=== PATIENT | female | born 1930 | race Caucasian/White ===

== ENCOUNTER → 2017-04-02 | Outpatient (CLI) | payer MEDICARE, OTHER ==
[~2017-04-02] MED LIST: BISO1TAB3 PO; CEFD300C3 PO; EZET10TA5 PO; L-THROXINE; LANS30CA PO; SERT50TA9 PO
--- NOTE | 2017-04-05 19:28 | Diagnostic Imaging Report ---
EXAM: Mammogram, bilateral screening with tomosynthesis. COMPARISON: Prior exams of 12/10/15, 10/19/14 and 10/18/13. At this time, there are no current complaints. 3D tomographic images fail to show any sign of malignancy. The current study was also evaluated with a Computer Aided Detection (CAD) system. FINDINGS: The fibroglandular tissue in both breasts is heterogeneously dense. This does limit the sensitivity of this exam. Overall, there does not appear to have been any significant change when compared to the prior study. No primary or secondary sign of malignancy is noted. IMPRESSION: There is no radiographic evidence for malignancy. ACR BI-RADS Category 1: Negative. Result letter will be mailed to the patient. Note: At least 10% of breast cancer is not imaged by mammography. Dictated by: Dictated on workstation # [id number]
== END ==
LOC: RAD 09:49
PROVIDERS: ATTEND Nurse Practitioner Family
DX: Z12.31 Encounter for screening mammogram for malignant neoplasm of breast (principal)
CPT/HCPCS: 77067

== ENCOUNTER 2017-08-24 08:40 | Outpatient (RCR) | payer MEDICARE, OTHER ==
[2017-08-29] MEDS ORDERED: LEVO100T7 PO (11:58)
[2017-08-29] MEDS ORDERED: VIT1CAPS5 PO (15:37)
[2017-08-29] MEDS ORDERED: CETI10TA17 PO (15:37)
[2017-08-29] MEDS ORDERED: TRAM50TA2 PO (15:37)
[2017-08-29] MEDS ORDERED: CYCL1DRO OU (15:37)
[2017-08-30] MEDS ORDERED: ACHD5005 PO (14:12)
[2017-08-30] MEDS ORDERED: ASPI325T32 PO (14:12)
[2017-08-31] MEDS ORDERED: SENN-140 PO (08:25)
[2017-08-31] MEDS ORDERED: DOCU100C37 PO (08:25)
[2017-08-31] MEDS ORDERED: OXYC-197 PO (08:42)
[2017-08-31] MEDS ORDERED: DICL100G18 TP (08:51)
[2017-09-03] MEDS ORDERED: DICL100G18 TOP (09:35)
[2017-09-03] MEDS ORDERED: ASPI325T32 PO (09:35)
[2017-09-03] MEDS ORDERED: HYDR-3820 PO (09:35)
[2017-09-03] MEDS ORDERED: TRAM50TA2 PO (09:35)
== END 2017-09-02 15:05 | disposition home or self-care (01) ==
PROVIDERS: ATTEND Orthopaedic Surgery
DX: Z47.1 Aftercare following joint replacement surgery (principal); Z96.651 Presence of right artificial knee joint

== ENCOUNTER 2017-08-28 15:43 | Inpatient (IN) | payer MEDICARE, OTHER ==
[~2017-08-28] VITALS: Ht 160 cm; Wt 68.7 kg
[2017-08-28] MEDS ORDERED: fentaNYL INJECTION 100 MCG/2 ML AMP ONE (15:51)
--- NOTE | 2017-08-28 15:56 | ED Lower Extremity ---
General Stated Complaint: FALL R HIP Source: patient Exam Limitations: no limitations History of Present Illness Time seen by provider: 15:54 Initial Comments To ER with reports of a fall while going outside afternoon. Landed on the right hip and has been unable to bear weight on the right leg since the fall. Complains of severe pain to the right hip. Recently had a right knee replacement by Dr. Samayoa. She did take hydrocodone 5/325 one hour prior to arrival to ER Onset: just prior to arrival Severity: moderate Pain/Injury Location: right hip Modifying Factors: Worse With Movement Allergies and Home Medications Allergies Coded Allergies: No Known Drug Allergies (Unverified , 08/28/17) Home Medications Bisoprolol Fumarate/Hctz 1 Each Tablet, 1 EACH PO DAILY, (Reported) Cefdinir 300 Mg Capsule, 300 MG PO BID, #14 Prescribed by: ISAAC PIZARRO on 10/27/15 1219 Ezetimibe 10 Mg Tablet, 10 MG PO, (Reported) Lansoprazole 30 Mg Capsule.dr, 30 MG PO, (Reported) Sertraline HCl 50 Mg Tablet, 75 MG PO, (Reported) [L-Throxine] , 100, (Reported) Constitutional: see HPI EENTM: see HPI Respiratory: no symptoms reported Cardiovascular: no symptoms reported Genitourinary: no symptoms reported Musculoskeletal: see HPI Skin: no symptoms reported Psychiatric/Neurological: No Symptoms Reported Past Qbfabcd-Fwpxln-Nfmovs Hx Patient Social History Recent Foreign Travel: No Contact w/Someone Who Travel: No Surgeries Surgeries: Orthopedic Cardiovascular Cardiac Disorders: High Cholesterol, Hypertension Gastrointestinal Gastrointestinal Disorders: Gastroesophageal Reflux Psychosocial Behavioral Health Disorders: Depression Physical Exam Vital Signs Vital Sign - Last 12Hours 08/28/17 08/28/17 15:50 16:10 Pulse 69 Resp 18 B/P (MAP) 189/96 (127) Pulse Ox 95 O2 Delivery Nasal Cannula O2 Flow Rate 2.00 FiO2 100 Capillary Refill : General Appearance: WD/WN, no apparent distress HEENT: PERRL/EOMI, normal ENT inspection Neck: non-tender, full range of motion Respiratory: no respiratory distress, no accessory muscle use Gastrointestinal: normal bowel sounds, non tender Hips: right hip limited range of motion, right hip pain, right hip other ( right leg is shortened and externally rotated. The dorsalis pedis pulses +2) Legs: bilateral leg non-tender, bilateral leg normal inspection, bilateral leg normal range of motion Knees: right knee other (scar over the anterior midline knee) Ankles: bilateral ankle non-tender, bilateral ankle normal inspection, bilateral ankle normal range of motion Feet: bilateral foot non-tender, bilateral foot normal inspection, bilateral foot normal range of motion Neurologic/Psychiatric: alert, normal mood/affect, oriented x 3 Skin: normal color, warm/dry Progress/Results/Core Measures Results/Orders Lab Results Laboratory Tests Test 08/28/17 15:51 Range/Units White Blood Count 9.2 4.3-11.0 10^3/uL Red Blood Count 4.14 L 4.35-5.85 10^6/uL Hemoglobin 12.4 11.5-16.0 G/DL Hematocrit 36 35-52 % Mean Corpuscular Volume 87 80-99 FL Mean Corpuscular Hemoglobin 30 25-34 PG Mean Corpuscular Hemoglobin Concent 34 32-36 G/DL Red Cell Distribution Width 12.0 10.0-14.5 % Platelet Count 243 130-400 10^3/uL Mean Platelet Volume 10.2 7.4-10.4 FL Neutrophils (%) (Auto) 53 42-75 % Lymphocytes (%) (Auto) 34 12-44 % Monocytes (%) (Auto) 11 0-12 % Eosinophils (%) (Auto) 2 0-10 % Basophils (%) (Auto) 1 0-10 % Neutrophils # (Auto) 4.9 1.8-7.8 X 10^3 Lymphocytes # (Auto) 3.1 1.0-4.0 X 10^3 Monocytes # (Auto) 1.0 0.0-1.0 X 10^3 Eosinophils # (Auto) 0.2 0.0-0.3 10^3/uL Basophils # (Auto) 0.1 0.0-0.1 10^3/uL Prothrombin Time 12.9 12.2-14.7 SEC INR Comment 1.0 0.8-1.4 Sodium Level 137 135-145 MMOL/L Potassium Level 3.4 L 3.6-5.0 MMOL/L Chloride Level 101 98-107 MMOL/L Carbon Dioxide Level 20 L 21-32 MMOL/L Anion Gap 16 H 5-14 MMOL/L Blood Urea Nitrogen 25 H 7-18 MG/DL Creatinine 1.20 0.60-1.30 MG/DL Estimat Glomerular Filtration Rate 43 BUN/Creatinine Ratio 21 Glucose Level 176 H 70-105 MG/DL Calcium Level 9.2 8.5-10.1 MG/DL Total Bilirubin 0.4 0.1-1.0 MG/DL Aspartate Amino Transf (AST/SGOT) 17 5-34 U/L Alanine Aminotransferase (ALT/SGPT) 13 0-55 U/L Alkaline Phosphatase 72 40-136 U/L Total Protein 7.5 6.4-8.2 GM/DL Albumin 3.9 3.2-4.5 GM/DL My Orders Orders - KEYANA GRIFFITHS DATA CONTROL ASSISTANT Cbc With Automated Diff (08/28/17 15:52) Comprehensive Metabolic Panel (08/28/17 15:52) Ua Culture If Indicated (08/28/17 15:52) Saline Lock/Iv-Start (08/28/17 15:52) Pelvis With Right Hip 2-3views (08/28/17 15:52) Fentanyl Injection (Sublimaze Injection (08/28/17 16:00) Chest 1 View, Ap/Pa Only (08/28/17 15:52) Ekg Tracing (08/28/17 15:52) Fentanyl Injection (Sublimaze Injection (08/28/17 16:00) Regalado Cath Insertion (08/28/17 15:52) Protime With Inr (08/28/17 15:57) Ketorolac Injection (Toradol Injection) (08/28/17 16:00) Metoprolol Tartrate Injection (Lopressor (08/28/17 16:30) Hydralazine Injection (Apresoline Inject (08/28/17 17:15) Hydralazine Injection (Apresoline Inject (08/28/17 18:00) Medications Given in ED Current Medications Medications Dose Ordered Sig/Eric Route Start Time Stop Time Status Last Admin Dose Admin Fentanyl Citrate 25 mcg ONCE ONCE IVP 08/28/17 16:00 08/28/17 16:01 DC 08/28/17 15:56 25 MCG Fentanyl Citrate 25 mcg ONCE PRN IVP 08/28/17 16:00 08/28/17 17:52 25 MCG Hydralazine HCl 10 mg ONCE ONCE IV 08/28/17 18:00 08/28/17 18:01 DC 08/28/17 17:54 10 MG Hydralazine HCl Give 10 mg, weight ... ONCE ONCE IV 08/28/17 17:15 08/28/17 17:16 DC 08/28/17 17:09 10 MG Ketorolac Tromethamine 15 mg ONCE ONCE IVP 08/28/17 16:00 08/28/17 16:01 DC 08/28/17 16:07 15 MG Metoprolol Tartrate 5 mg ONCE ONCE IV 08/28/17 16:30 08/28/17 16:31 DC 08/28/17 16:39 5 MG Vital Signs/I&O Vital Sign - Last 12Hours 08/28/17 08/28/17 15:50 16:10 Pulse 69 Resp 18 B/P (MAP) 189/96 (127) Pulse Ox 95 98 O2 Delivery Nasal Cannula O2 Flow Rate 2.00 FiO2 100 Departure Communication (Admissions) Time/Spoke to Admitting Phy: 16:30 Communication Discussed the case with Dr. Magaña. We will admit, consult orthopedics. Dr. Puentes is on-call. I notified him of the consult. Patient last ate at 2 PM. Plan for ORIF right hip fracture tomorrow morning around [address] Hopper as the patient's hypertensive and with a known recent aortic aneurysm. We' ll give Lopressor 5 mg IV now with the goal to keep the systolic blood pressure less than 150 Progress Notes 1712-anesthesia will be in to do right femoral nerve block under ultrasound guidance between 6 and 6: 30 this evening with hopes that we can limit opiate usage and the adverse effects associated with this. Pain is tolerable at this time. Blood pressure remains 180 12/21/04. She finished a metoprolol 5 mg injection 10 minutes ago. Currently hydralazine 10 mg IV is infusing. 180- blood pressure down to 153/70 after 5 mg of Lopressor IV and 10 mg of hydralazine IV. 181- blood pressure 143/67. Patient resting quietly. Family has left the bedside. Impression Impression: Primary Impression: Intertrochanteric fracture of right hip Additional Impressions: Hypertension Ascending aortic aneurysm Disposition: ADMITTED INPATIENT Condition: Improved Admissions Decision to Admit Reason: Admit from ER (General) Decision to Admit/Date: Aug 28, 2017 Time/Decision to Admit Time: 16:31 Departure-Patient Inst. Referrals: YAN SAMAYOA DO (PCP/Family) Primary Care Physician KEYANA GRIFFITHS APRN Aug 28, 2017 15:56
[2017-08-28 15:59] LABS: BASOPHILS # (AUTO) 0.1 10^3/uL (0.0-0.1); BASOPHILS % (AUTO) 1 % (0-10); EOSINOPHILS # (AUTO) 0.2 10^3/uL (0.0-0.3); EOSINOPHILS % (AUTO) 2 % (0-10); HEMATOCRIT 36 % (35-52); HEMOGLOBIN 12.4 G/DL (11.5-16.0); LYMPHOCYTES # (AUTO) 3.1 X 10^3 (1.0-4.0); LYMPHOCYTES % (AUTO) 34 % (12-44); MEAN CORPUSCULAR HEMOGLOBIN 30 PG (25-34); MEAN CORPUSCULAR HGB CONC 34 G/DL (32-36); MEAN CORPUSCULAR VOLUME 87 FL (80-99); MEAN PLATELET VOLUME 10.2 FL (7.4-10.4); MONOCYTES % (AUTO) 11 % (0-12); NEUTROPHILS # (AUTO) 4.9 X 10^3 (1.8-7.8); NEUTROPHILS % (AUTO) 53 % (42-75); PLATELET COUNT 243 10^3/uL (130-400); RED BLOOD COUNT 4.14 10^6/uL (4.35-5.85); WHITE BLOOD COUNT 9.2 10^3/uL (4.3-11.0)
[2017-08-28] MEDS ORDERED: KETOROLAC 30 MG/ML VIAL IVP ONE (16:00)
[2017-08-28] MEDS ORDERED: fentaNYL INJECTION 100 MCG/2 ML AMP IVP ONE (16:00)
[2017-08-28 16:07] LABS: PROTHROMBIN TIME PATIENT 12.9 SEC (12.2-14.7)
[2017-08-28] MEDS: fentaNYL INJECTION 100 MCG/2 ML AMP IVP PRN ×7 (16:07→22:15)
[2017-08-28 16:16] LABS: ALBUMIN 3.9 GM/DL (3.2-4.5); BILIRUBIN,TOTAL 0.4 MG/DL (0.1-1.0); CALCIUM 9.2 MG/DL (8.5-10.1); CREATININE SERUM 1.2 MG/DL (0.60-1.30); POTASSIUM 3.4 MMOL/L (3.6-5.0); TOTAL PROTEIN 7.5 GM/DL (6.4-8.2)
--- NOTE | 2017-08-28 16:24 | Diagnostic Imaging Report ---
PATIENT HISTORY: Fall, right hip pain. TECHNIQUE: Frontal view of the pelvis, AP and lateral views of the right hip. COMPARISON: 03/01/2007. FINDINGS: There is diffuse osteopenia. There is a mildly comminuted intertrochanteric fracture of the proximal right femur, with varus angulation of the distal fragment. No additional fracture is seen. Mild degenerative changes are seen in the left hip and bilateral sacroiliac joints. Sacral neurostimulator is noted. IMPRESSION: Mildly comminuted, angulated intra-articular fracture of the proximal right femur. Dictated by: Dictated on workstation # [id number]
--- NOTE | 2017-08-28 16:26 | Diagnostic Imaging Report ---
PATIENT HISTORY: Fall. TECHNIQUE: Single frontal view of the chest. COMPARISON: CT from 07/02/2017. FINDINGS: Lung volumes are mildly large. No focal consolidation is seen. No pleural effusion or pneumothorax. There is mild cardiomegaly. There is aortic atherosclerosis. No acute osseous abnormality is identified. IMPRESSION: No acute pulmonary abnormality. Dictated by: Dictated on workstation # [id number]
[2017-08-28] MEDS ORDERED: meTOprolol 5 MG/5 ML (LOPRESSOR) VIAL IV ONE (16:30)
[2017-08-28] MEDS ORDERED: hydrALAZINE (APESOLINE) 20 MG/ML VIAL IV ONE ×2 (17:15→18:00)
[2017-08-28 18:15] VITALS: BP 149/77
--- OUTSIDE RECORDS SUMMARY | 2017-08-28 18:20 | XMS REPORT | Continuity of Care Document ---
Author Author [facility] Organization [facility] Address Unknown Phone Unavailable Allergies Active Description Code Type Severity Reaction Onset Reported/Identified Relationship to Patient Clinical Status Yes No Known Drug Allergies [id number] Drug Allergy Unknown N/A 10/27/2015 Medications There is no data. Problems Date Dx Coded Attending Type Code Diagnosis Diagnosed By 11/15/2014 Ot V76.12 03/29/2015 YAN DELGADO DO Ot 719.47 03/29/2015 YAN DELGADO DO Ot 729.5 03/29/2015 YAN DELGADO DO Ot V57.1 04/18/2015 YAN DELGADO DO Ot 719.47 JOINT PAIN-ANKLE 04/18/2015 YAN DELGADO DO Ot 729.5 PAIN IN LIMB 04/18/2015 YAN DELGADO DO Ot V57.1 PHYSICAL THERAPY NEC 10/05/2015 Ot V76.12 10/05/2015 Ot 793.89 10/05/2015 Ot V76.12 10/05/2015 Ot 610.0 10/05/2015 Ot 793.80 10/05/2015 Ot 610.0 10/05/2015 Ot 793.89 10/05/2015 Ot V76.12 10/05/2015 VIRGINIA MORRIS, BARBER Lowe Ot V76.12 10/05/2015 Ot V76.12 10/27/2015 Ot V76.12 10/27/2015 Ot 793.89 10/27/2015 Ot V76.12 10/27/2015 Ot 610.0 10/27/2015 Ot 793.80 10/27/2015 Ot 610.0 10/27/2015 Ot 793.89 10/27/2015 Ot V76.12 10/27/2015 VIRGINIA MORRIS, BARBER Lowe Ot V76.12 10/27/2015 Ot V76.12 10/27/2015 MOIRA MORRIS, ISAAC Arriaza Ot J06.9 ACUTE UPPER RESPIRATORY INFECTION, UNSPE 10/27/2015 MOIRA MORRIS, ISAAC Arriaza Ot N39.0 URINARY TRACT INFECTION, SITE NOT SPECIF 12/10/2015 Ot V76.12 OTH SCREEN MAMMO-MALIGN NEOPLASM OF JESE 12/10/2015 Ot 793.89 OTH (ABN) FINDINGS ON RADIOLOGICAL EXAMI 12/10/2015 Ot V76.12 OTH SCREEN MAMMO-MALIGN NEOPLASM OF JESE 12/10/2015 Ot 610.0 SOLITARY CYST OF BREAST 12/10/2015 Ot 793.80 UNSPEC ABNORMAL MAMMOGRAM 12/10/2015 Ot 610.0 SOLITARY CYST OF BREAST 12/10/2015 Ot 793.89 OTH (ABN) FINDINGS ON RADIOLOGICAL EXAMI 12/10/2015 Ot V76.12 OTH SCREEN MAMMO-MALIGN NEOPLASM OF JESE 12/10/2015 VIRGINIA MORRIS, BARBER Lowe Ot V76.12 OTH SCREEN MAMMO-MALIGN NEOPLASM OF JESE 12/10/2015 Ot V76.12 OTH SCREEN MAMMO-MALIGN NEOPLASM OF JESE 12/11/2015 CHIQUITA MORRIS, GENNA Moreno Ot Z12.31 ENCNTR SCREEN MAMMOGRAM FOR MALIGNANT NE 12/12/2015 CHIQUITA MORRIS, GENNA Moreno Ot Z12.31 ENCNTR SCREEN MAMMOGRAM FOR MALIGNANT NE 12/16/2015 CHIQUITA MORRIS, GENNA Moreno Ot Z12.31 ENCNTR SCREEN MAMMOGRAM FOR MALIGNANT NE 12/31/2015 CHIQUITA MORRIS, GENNA Moreno Ot Z12.31 ENCNTR SCREEN MAMMOGRAM FOR MALIGNANT NE 04/02/2017 Ot 793.89 OTH (ABN) FINDINGS ON RADIOLOGICAL EXAMI 04/02/2017 Ot V76.12 OTH SCREEN MAMMO-MALIGN NEOPLASM OF JESE 04/02/2017 Ot 610.0 SOLITARY CYST OF BREAST 04/02/2017 Ot 793.80 UNSPEC ABNORMAL MAMMOGRAM 04/02/2017 Ot 610.0 SOLITARY CYST OF BREAST 04/02/2017 Ot 793.89 OTH (ABN) FINDINGS ON RADIOLOGICAL EXAMI 04/02/2017 Ot V76.12 OTH SCREEN MAMMO-MALIGN NEOPLASM OF JESE 04/02/2017 VIRGINIA MORRIS, BARBER Lowe Ot V76.12 OTH SCREEN MAMMO-MALIGN NEOPLASM OF JESE 04/02/2017 Ot V76.12 OTH SCREEN MAMMO-MALIGN NEOPLASM OF JESE 04/02/2017 GENNA PORRAS MD Ot Z12.31 ENCNTR SCREEN MAMMOGRAM FOR MALIGNANT NE 04/02/2017 FARA CARBAJAL SAW OFFBEARER Ot Z12.31 ENCNTR SCREEN MAMMOGRAM FOR MALIGNANT NE 04/27/2017 FARA CARBAJAL SAW OFFBEARER Ot Z12.31 ENCNTR SCREEN MAMMOGRAM FOR MALIGNANT NE 07/05/2017 Ot V76.12 OTH SCREEN MAMMO-MALIGN NEOPLASM OF JESE 07/05/2017 VIRGINIA MORRIS, BARBER Lowe Ot V76.12 OTH SCREEN MAMMO-MALIGN NEOPLASM OF JESE 07/05/2017 Ot V76.12 OTH SCREEN MAMMO-MALIGN NEOPLASM OF JESE 07/05/2017 GENNA PORRAS MD Ot Z12.31 ENCNTR SCREEN MAMMOGRAM FOR MALIGNANT NE 07/05/2017 FARA CARBAJAL SAW OFFBEARER Ot Z12.31 ENCNTR SCREEN MAMMOGRAM FOR MALIGNANT NE 07/05/2017 GENNA PORRAS MD Ot I71.4 ABDOMINAL AORTIC ANEURYSM, WITHOUT RUPTU 07/05/2017 GENNA PORRAS MD Ot K44.9 DIAPHRAGMATIC HERNIA WITHOUT OBSTRUCTION 07/05/2017 GENNA PORRAS MD Ot R91.1 SOLITARY PULMONARY NODULE 07/07/2017 YAN DELGADO DO Ot Z47.1 AFTERCARE FOLLOWING JOINT REPLACEMENT CHAVIS 07/07/2017 YAN DELGADO DO Ot Z96.651 PRESENCE OF RIGHT ARTIFICIAL KNEE JOINT 07/23/2017 GENNA PORRAS MD Ot I71.4 ABDOMINAL AORTIC ANEURYSM, WITHOUT RUPTU 07/23/2017 GENNA PORRAS MD Ot K44.9 DIAPHRAGMATIC HERNIA WITHOUT OBSTRUCTION 07/23/2017 GENNA PORRAS MD Ot R91.1 SOLITARY PULMONARY NODULE 08/09/2017 GENNA PORRAS MD Ot I71.4 ABDOMINAL AORTIC ANEURYSM, WITHOUT RUPTU 08/09/2017 GENNA PORRAS MD Ot K44.9 DIAPHRAGMATIC HERNIA WITHOUT OBSTRUCTION 08/09/2017 GENNA PORRAS MD Ot R91.1 SOLITARY PULMONARY NODULE 08/17/2017 YAN DELGADO DO Ot Z47.1 AFTERCARE FOLLOWING JOINT REPLACEMENT CHAVIS 08/17/2017 YAN DELGADO DO F Ot Z96.651 PRESENCE OF RIGHT ARTIFICIAL KNEE JOINT Procedures There is no data. Results Test Result Range Complete blood count (CBC) with automated white blood cell (WBC) differential - 08/28/17 15:51 Blood leukocytes automated count (number/volume) 9.2 10*3/uL 4.3-11.0 Blood erythrocytes automated count (number/volume) 4.14 10*6/uL 4.35-5.85 Venous blood hemoglobin measurement (mass/volume) 12.4 g/dL 11.5-16.0 Blood hematocrit (volume fraction) 36 % 35-52 Automated erythrocyte mean corpuscular volume 87 [foz_us] 80-99 Automated erythrocyte mean corpuscular hemoglobin (mass per erythrocyte) 30 pg 25-34 Automated erythrocyte mean corpuscular hemoglobin concentration measurement ( mass/volume) 34 g/dL 32-36 Automated erythrocyte distribution width ratio 12.0 % 10.0-14.5 Automated blood platelet count (count/volume) 243 10*3/uL 130-400 Automated blood platelet mean volume measurement 10.2 [foz_us] 7.4-10.4 Automated blood neutrophils/100 leukocytes 53 % 42-75 Automated blood lymphocytes/100 leukocytes 34 % 12-44 Blood monocytes/100 leukocytes 11 % 0-12 Automated blood eosinophils/100 leukocytes 2 % 0-10 Automated blood basophils/100 leukocytes 1 % 0-10 Blood neutrophils automated count (number/volume) 4.9 10*3 1.8-7.8 Blood lymphocytes automated count (number/volume) 3.1 10*3 1.0-4.0 Blood monocytes automated count (number/volume) 1.0 10*3 0.0-1.0 Automated eosinophil count 0.2 10*3/uL 0.0-0.3 Automated blood basophil count (count/volume) 0.1 10*3/uL 0.0-0.1 PT panel in platelet poor plasma by coagulation assay - 08/28/17 15:51 Prothrombin time (PT) in platelet poor plasma by coagulation assay 12.9 s 12.2-14.7 INR in platelet poor plasma or blood by coagulation assay 1.0 0.8-1.4 Comprehensive metabolic panel - 08/28/17 15:51 Serum or plasma sodium measurement (moles/volume) 137 mmol/L 135-145 Serum or plasma potassium measurement (moles/volume) 3.4 mmol/L 3.6-5.0 Serum or plasma chloride measurement (moles/volume) 101 mmol/L 98-107 Carbon dioxide 20 mmol/L 21-32 Serum or plasma anion gap determination (moles/volume) 16 mmol/L 5-14 Serum or plasma urea nitrogen measurement (mass/volume) 25 mg/dL 7-18 Serum or plasma creatinine measurement (mass/volume) 1.20 mg/dL 0.60-1.30 Serum or plasma urea nitrogen/creatinine mass ratio 21 NRG Serum or plasma creatinine measurement with calculation of estimated glomerular filtration rate 43 NRG Serum or plasma glucose measurement (mass/volume) 176 mg/dL 70-105 Serum or plasma calcium measurement (mass/volume) 9.2 mg/dL 8.5-10.1 Serum or plasma total bilirubin measurement (mass/volume) 0.4 mg/dL 0.1-1.0 Serum or plasma alkaline phosphatase measurement (enzymatic activity/volume) 72 U/L 40-136 Serum or plasma aspartate aminotransferase measurement (enzymatic activity/ volume) 17 U/L 5-34 Serum or plasma alanine aminotransferase measurement (enzymatic activity/volume ) 13 U/L 0-55 Serum or plasma protein measurement (mass/volume) 7.5 g/dL 6.4-8.2 Serum or plasma albumin measurement (mass/volume) 3.9 g/dL 3.2-4.5 Encounters ACCT No. Visit Date/Time Discharge Status Pt. Type Provider Facility Loc./Unit Complaint [id number] 08/19/2017 08:45:00 08/19/2017 23:59:59 CLS Outpatient YAN DELGADO DO Jim [facility] REHAB S/P R TKR [id number] 07/19/2017 14:06:00 07/19/2017 23:59:59 CLS Preadmit JOSE MARIA MD [facility] RAD LUNG MASS [id number] 07/02/2017 09:52:00 07/02/2017 23:59:59 CLS Outpatient GENNA PORRAS MD [facility] RAD LUNG NODULE [id number] 04/02/2017 09:49:00 04/02/2017 23:59:59 CLS Outpatient FARA CARBAJAL APRN [facility] RAD SCREENING Z12.31 [id number] 12/10/2015 10:09:00 12/10/2015 23:59:59 CLS Outpatient GENAN PORRAS MD [facility] RAD SCREENING [id number] 10/27/2015 10:30:00 10/27/2015 12:23:00 DIS Emergency MOIRA MORRIS, ISAAC Arriaza [facility] ER FEVER,CONGESTION,BACK PAIN [id number] 04/18/2015 09:51:00 04/18/2015 11:49:00 DIS Outpatient YAN DELGADO DO [facility] REHAB R ANKLE/HEEL HAGLAND DEFORMITY [id number] 10/18/2013 14:46:00 10/18/2013 23:59:59 CLS Outpatient BARBER COLEMAN MD [facility] RAD SCREENING [id number] 08/28/2017 15:59:00 Document Registration [id number] 12/10/2015 10:08:00 Document Registration [id number] 10/19/2014 13:27:00 Document Registration [id number] 10/17/2012 10:31:00 Document Registration [id number] 12/28/2011 13:24:00 Document Registration [id number] 10/19/2011 14:42:00 Document Registration [id number] 10/12/2011 09:17:00 Document Registration [id number] 10/10/2010 08:42:00 Document Registration
[2017-08-28] MEDS ORDERED: MIDAZOLAM 2 MG/2 ML (VERSED) VIAL ONE (19:43)
[2017-08-28 20:00] VITALS: BP 124/78
[2017-08-28] MEDS ORDERED: ONDANSETRON 4 MG/2 ML (SDV) Z0FRAN IV PRN ×2 (20:30)
[2017-08-28] MEDS ORDERED: HYDROcodone/APAP 5 MG/325 MG (LORTAB) TAB PO PRN (20:30)
[2017-08-28] MEDS ORDERED: NS IV 500 ML PCA CARRIER FLUID IV SCH (20:30)
[2017-08-28] MEDS ORDERED: FENTANYL IV SCH (20:30)
[2017-08-28] MEDS ORDERED: METOCLOPRAMIDE INJ 10 MG/2 ML (REGLAN) IV PRN (20:30)
[2017-08-28] MEDS ORDERED: hydrALAZINE (APESOLINE) 20 MG/ML VIAL IV PRN (20:30)
[2017-08-28] MEDS ORDERED: CATHETER FLUSH 10 ML SYR IV PRN (20:30)
[2017-08-28] MEDS ORDERED: NS IV SCH (20:30)
[2017-08-28] MEDS ORDERED: NALOXONE 0.4 MG/ML 1 ML (NARCAN) VIAL IV PRN (20:30)
[2017-08-28] MEDS ORDERED: diphenhydrAMINE 50 MG/ML INJ (BENADRYL) IV PRN (20:30)
[2017-08-28] MEDS ORDERED: ROPIVACAINE 5MG/ML 30ML VIAL ONE (20:44)
[2017-08-28] MEDS ORDERED: MIDAZOLAM 2 MG/2 ML (VERSED) VIAL IV ONE (20:45)
[2017-08-28] MEDS: NS IV 1000 ML 1,000 ML IV SCH (20:47)
[2017-08-28] MEDS: CATHETER FLUSH 10 ML SYR IV SCH (22:01)
[2017-08-28] MEDS: DOCUSATE SODIUM 100 MG (COLACE) CAP PO SCH (22:01)
[2017-08-28 22:14] LABS: BILIRUBIN,URINE NEGATIVE (NEGATIVE); CLARITY,URINE CLEAR; COLOR,URINE YELLOW; GLUCOSE, URINE (UA) NEGATIVE (NEGATIVE); KETONES,URINE 1+ (NEGATIVE); LEUKOCYTE ESTERASE ,URINE NEGATIVE (NEGATIVE); NITRITE,URINE NEGATIVE (NEGATIVE); PH,URINE 6 (5-9); PROTEIN,URINE 1+ (NEGATIVE); UROBILINOGEN,URINE NORMAL (NORMAL)
[2017-08-29] VITALS (9 sets, daily range): BP systolic 99–154; BP diastolic 56–75
[2017-08-29] MEDS: fentaNYL INJECTION 100 MCG/2 ML AMP IVP PRN ×4 (02:08→08:14)
[2017-08-29] MEDS: CATHETER FLUSH 10 ML SYR IV SCH ×3 (07:12→23:08)
[2017-08-29] MEDS: NS IV 1000 ML 1,000 ML IV SCH ×3 (07:12→13:35)
[2017-08-29] MEDS: DOCUSATE SODIUM 100 MG (COLACE) CAP PO SCH ×2 (07:18→20:15)
[2017-08-29] MEDS ORDERED: LACTATED RINGERS 1,000 ML IV PRN (07:24)
[2017-08-29] MEDS ORDERED: fentaNYL INJECTION 1,000 MCG in NS (IVPB) 80 ML IV SCH (07:30)
--- NOTE | 2017-08-29 08:26 | Consultation-Cardiology ---
HPI-Cardiology Cardiology Consultation Date of Consultation 08/29/17 Date of Admission Time Seen by Provider: 08:22 Indication: Preoperative cardiac evaluation HPI 86 years old lady with history of hypertension, thoracic aortic aneurysm discovered incidentally 2 months ago seen by Dr. Urbano Fong and decision was made to treat her conservatively. She sustained a fall resulted in hip fracture. I was called for preoperative cardiac evaluation. She denied any chest pain, palpitation, syncope, pedal edema. Has been asymptomatic otherwise. Compliant with her medication. No recent cardiac workup. Home Medications & Allergies Allergies: Coded Allergies: No Known Drug Allergies (Unverified , 08/28/17) Home Medication List Reviewed: Yes VCC-Kbpnzm-Exbeli Hx Patient Social History Marital Status: (history of thethe left side of the) Alcohol Use: Denies Use Recreational Drug Use: No Smoking Status: Never a Smoker 2nd Hand Smoke Exposure: No Recent Foreign Travel: No Recent Infectious Disease Expo: No Physical Abuse Screen: No Sexual Abuse: No Immunizations Up To Date Tetanus Booster (TDap): Less than 5yrs Date of Pneumonia Vaccine: Sep 23, 2015 Date of Influenza Vaccine: May 23, 2017 Past Medical History past medical history as discussed below Family Medical History Family Medical Hx father has history of thoracic aneurysm Family History: Patient reports no known family medical history. Constitutional: no symptoms reported, see HPI EENTM: see HPI, no symptoms reported Respiratory: see HPI, No cough, No dyspnea on exertion, No hemoptysis, No orthopnea, No phlegm, No short of breath, No stridor, No wheezing, No other Cardiovascular: see HPI, No chest pain, No edema, No Hx of Intervention, No palpitations, No syncope, No vascular heart diseas, No other Gastrointestinal: no symptoms reported, see HPI Genitourinary: see HPI, incontinence Musculoskeletal: see HPI, back pain, joint pain, other (hip fracture) Skin: no symptoms reported, see HPI Psychiatric/Neurological: No Symptoms Reported, See HPI Reviewed Test Results Reviewed Test Results Lab Laboratory Tests Test 08/28/17 15:51 08/28/17 22:05 Range/Units White Blood Count 9.2 4.3-11.0 10^3/uL Red Blood Count 4.14 L 4.35-5.85 10^6/uL Hemoglobin 12.4 11.5-16.0 G/DL Hematocrit 36 35-52 % Mean Corpuscular Volume 87 80-99 FL Mean Corpuscular Hemoglobin 30 25-34 PG Mean Corpuscular Hemoglobin Concent 34 32-36 G/DL Red Cell Distribution Width 12.0 10.0-14.5 % Platelet Count 243 130-400 10^3/uL Mean Platelet Volume 10.2 7.4-10.4 FL Neutrophils (%) (Auto) 53 42-75 % Lymphocytes (%) (Auto) 34 12-44 % Monocytes (%) (Auto) 11 0-12 % Eosinophils (%) (Auto) 2 0-10 % Basophils (%) (Auto) 1 0-10 % Neutrophils # (Auto) 4.9 1.8-7.8 X 10^3 Lymphocytes # (Auto) 3.1 1.0-4.0 X 10^3 Monocytes # (Auto) 1.0 0.0-1.0 X 10^3 Eosinophils # (Auto) 0.2 0.0-0.3 10^3/uL Basophils # (Auto) 0.1 0.0-0.1 10^3/uL Prothrombin Time 12.9 12.2-14.7 SEC INR Comment 1.0 0.8-1.4 Sodium Level 137 135-145 MMOL/L Potassium Level 3.4 L 3.6-5.0 MMOL/L Chloride Level 101 98-107 MMOL/L Carbon Dioxide Level 20 L 21-32 MMOL/L Anion Gap 16 H 5-14 MMOL/L Blood Urea Nitrogen 25 H 7-18 MG/DL Creatinine 1.20 0.60-1.30 MG/DL Estimat Glomerular Filtration Rate 43 BUN/Creatinine Ratio 21 Glucose Level 176 H 70-105 MG/DL Calcium Level 9.2 8.5-10.1 MG/DL Total Bilirubin 0.4 0.1-1.0 MG/DL Aspartate Amino Transf (AST/SGOT) 17 5-34 U/L Alanine Aminotransferase (ALT/SGPT) 13 0-55 U/L Alkaline Phosphatase 72 40-136 U/L Total Protein 7.5 6.4-8.2 GM/DL Albumin 3.9 3.2-4.5 GM/DL Urine Color YELLOW Urine Clarity CLEAR Urine pH 6 5-9 Urine Specific [place] 1.015 L 1.016-1.022 Urine Protein 1+ H NEGATIVE Urine Glucose (UA) NEGATIVE NEGATIVE Urine Ketones 1+ H NEGATIVE Urine Nitrite NEGATIVE NEGATIVE Urine Bilirubin NEGATIVE NEGATIVE Urine Urobilinogen NORMAL NORMAL MG/DL Urine Leukocyte Esterase NEGATIVE NEGATIVE Urine RBC (Auto) 1+ H NEGATIVE Urine RBC 5-10 H /HPF Urine WBC NONE /HPF Urine Crystals NONE /LPF Urine Bacteria NONE /HPF Urine Casts NONE /LPF Urine Mucus SMALL H /LPF Urine Culture Indicated NO Physical Exam Vital Signs Vital Sign - Last 12Hours 08/28/17 08/28/17 08/28/17 15:50 16:10 18:10 Temp 98.3 Pulse 69 Resp 18 B/P (MAP) 189/96 (127) Pulse Ox 95 O2 Delivery Nasal Cannula O2 Flow Rate 2.00 FiO2 100 Capillary Refill : Less Than 3 SecondsLess Than 3 Seconds General Appearance: WD/WN, Mild Distress Eyes: Bilateral Eye Normal Inspection, Bilateral Eye PERRL, Bilateral Eye EOMI HEENT: PERRL/EOMI, TMs Normal, Normal ENT Inspection, Pharynx Normal Neck: Full Range of Motion, Normal Inspection, Non Tender, Supple, Carotid Bruit Respiratory: Chest Non Tender, Lungs Clear, Normal Breath Sounds, No Accessory Muscle Use, No Respiratory Distress Cardiovascular: Regular Rate, Rhythm, No Edema, No Gallop, No JVD, No Murmur, Normal Peripheral Pulses Gastrointestinal: Normal Bowel Sounds, No Organomegaly, No Pulsatile Mass, Non Tender, Soft Back: Normal Inspection, No CVA Tenderness, No Vertebral Tenderness Extremity: Normal Capillary Refill, Normal Inspection, No Pedal Edema, Other ( right hip fracture) Neurologic/Psychiatric: Alert, Oriented x3, No Motor/Sensory Deficits, Normal Mood/Affect Skin: Normal Color, Warm/Dry Lymphatic: No Adenopathy A/P-Cardiology Admission Diagnosis Thoracic aortic aneurysm Hypertension Hyperlipidemia Hip fracture Assessment/Plan Right hip fracture, scheduled for surgery today. Hypertension, better control, continue on IV Lopressor for now, I'll restart oral medications postoperatively. Thoracic aortic aneurysm, seen and evaluated by Dr. Jhon Fong. Continue to monitor. Hyperlipidemia, monitor blood pressure History of urinary incontinence Family history of thoracic aneury Clinical Quality Measures DVT/VTE Risk/Contraindication: Risk Factor Score Per Nursin RFS Level Per Nursing on Admit: 4+=Very High JAYME VAIL MD Aug 29, 2017 08:26
[2017-08-29] MEDS ORDERED: morphine INJ 10 MG/ML 1ML (SYR OR VIAL) ONE (08:57)
[2017-08-29] MEDS ORDERED: SENNA W/DOCUSATE (SENOKOT S) TABLET PO SCH (09:00)
[2017-08-29] MEDS ORDERED: GENTAMICIN 40 MG/ML 2 ML INJ SDV ONE (09:16)
[2017-08-29] MEDS ORDERED: MIDAZOLAM 2 MG/2 ML (VERSED) VIAL ONE (10:16)
[2017-08-29] MEDS ORDERED: VANCOMYCIN 1000 MG/VIAL ONE (10:22)
[2017-08-29] MEDS ORDERED: ceFAZolin 1,000 MG (ANCEF) VIAL ONE (10:22)
[2017-08-29] MEDS: LACTATED RINGERS 1,000 ML IV PRN ×2 (10:23→11:15)
--- NOTE | 2017-08-29 10:23 | History & Physical-Surgical ---
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 Diagnosis/Surgical Indication: Right intertrochantier hip fracture Procedure: Trochanteric femoral nail right hip Date of Surgery: Aug 29, 2017 Weight (Pounds): 151 Weight (Ounces): 6.0 Height (Feet): 5 Height (Inches): 3.00 Allergies and Home Medications Allergies Coded Allergies: No Known Drug Allergies (Unverified , 08/28/17) Home Medications Bisoprolol Fumarate/Hctz 1 Each Tablet, 1 EACH PO DAILY, (Reported) Ezetimibe 10 Mg Tablet, 10 MG PO, (Reported) Lansoprazole 30 Mg Capsule.dr, 30 MG PO, (Reported) Sertraline HCl 50 Mg Tablet, 75 MG PO, (Reported) [L-Throxine] , 100, (Reported) Past Ajpcles-Xocltk-Yjmujx Hx Patient Social History Marrital Status: (history of thethe left side of the) Alcohol Use: Denies Use Alcohol Beverage of Choice: Beer Recreational Drug Use: No Smoking Status: Never a Smoker 2nd Hand Smoke Exposure: No Physical Abuse Screen: No Sexual Abuse: No Recent Foreign Travel: No Contact w/other who traveled: No Recent Infectious Disease Expo: No Immunizations Up To Date Tetanus Booster (TDap): Less than 5yrs Date of Pneumonia Vaccine: Sep 23, 2015 Date of Influenza Vaccine: May 23, 2017 Surgeries Yes (RIGHT KNEE SURG MAY 2017) Orthopedic Respiratory No Cardiovascular Yes (ACENDING AORTIC ANEURYSM) High Cholesterol, Hypertension Neurological No Gastrointestinal Yes Gastroesophageal Reflux Musculoskeletal No Endocrine History of Endocrine Disorders: Yes (THYROID) HEENT History of HEENT Disorders: Yes HEENT Disorders: Macular Degeneration Cancer No Psychosocial History of Psychiatric Problem: Yes Behavioral Health Disorders: Depression Blood Transfusions History of Blood Disorders: No Family Medical History Family Hx: Patient reports no known family medical history. Exam Vital Signs Vital Signs 08/28/17 08/29/17 08/29/17 21:00 08:00 08:58 Temp 98.0 Pulse 80 Resp 20 B/P (MAP) 141/75 (97) Pulse Ox 95 O2 Delivery Room Air O2 Flow Rate 3.00 FiO2 100 Capillary Refill : Less Than 3 SecondsLess Than 3 Seconds Labs Laboratory Tests Test 08/28/17 15:51 08/28/17 22:05 Range/Units White Blood Count 9.2 4.3-11.0 10^3/uL Red Blood Count 4.14 L 4.35-5.85 10^6/uL Hemoglobin 12.4 11.5-16.0 G/DL Hematocrit 36 35-52 % Mean Corpuscular Volume 87 80-99 FL Mean Corpuscular Hemoglobin 30 25-34 PG Mean Corpuscular Hemoglobin Concent 34 32-36 G/DL Red Cell Distribution Width 12.0 10.0-14.5 % Platelet Count 243 130-400 10^3/uL Mean Platelet Volume 10.2 7.4-10.4 FL Neutrophils (%) (Auto) 53 42-75 % Lymphocytes (%) (Auto) 34 12-44 % Monocytes (%) (Auto) 11 0-12 % Eosinophils (%) (Auto) 2 0-10 % Basophils (%) (Auto) 1 0-10 % Neutrophils # (Auto) 4.9 1.8-7.8 X 10^3 Lymphocytes # (Auto) 3.1 1.0-4.0 X 10^3 Monocytes # (Auto) 1.0 0.0-1.0 X 10^3 Eosinophils # (Auto) 0.2 0.0-0.3 10^3/uL Basophils # (Auto) 0.1 0.0-0.1 10^3/uL Prothrombin Time 12.9 12.2-14.7 SEC INR Comment 1.0 0.8-1.4 Sodium Level 137 135-145 MMOL/L Potassium Level 3.4 L 3.6-5.0 MMOL/L Chloride Level 101 98-107 MMOL/L Carbon Dioxide Level 20 L 21-32 MMOL/L Anion Gap 16 H 5-14 MMOL/L Blood Urea Nitrogen 25 H 7-18 MG/DL Creatinine 1.20 0.60-1.30 MG/DL Estimat Glomerular Filtration Rate 43 BUN/Creatinine Ratio 21 Glucose Level 176 H 70-105 MG/DL Calcium Level 9.2 8.5-10.1 MG/DL Total Bilirubin 0.4 0.1-1.0 MG/DL Aspartate Amino Transf (AST/SGOT) 17 5-34 U/L Alanine Aminotransferase (ALT/SGPT) 13 0-55 U/L Alkaline Phosphatase 72 40-136 U/L Total Protein 7.5 6.4-8.2 GM/DL Albumin 3.9 3.2-4.5 GM/DL Urine Color YELLOW Urine Clarity CLEAR Urine pH 6 5-9 Urine Specific [place] 1.015 L 1.016-1.022 Urine Protein 1+ H NEGATIVE Urine Glucose (UA) NEGATIVE NEGATIVE Urine Ketones 1+ H NEGATIVE Urine Nitrite NEGATIVE NEGATIVE Urine Bilirubin NEGATIVE NEGATIVE Urine Urobilinogen NORMAL NORMAL MG/DL Urine Leukocyte Esterase NEGATIVE NEGATIVE Urine RBC (Auto) 1+ H NEGATIVE Urine RBC 5-10 H /HPF Urine WBC NONE /HPF Urine Crystals NONE /LPF Urine Bacteria NONE /HPF Urine Casts NONE /LPF Urine Mucus SMALL H /LPF Urine Culture Indicated NO KATRIN EDMONDS MD Aug 29, 2017 10:23 am
[2017-08-29] MEDS ORDERED: BISACODYL 5 MG (DULCOLAX) TABLET PO PRN (10:30)
[2017-08-29] MEDS ORDERED: ZOLPIDEM 5 MG (AMBIEN) TAB PO PRN (10:30)
[2017-08-29] MEDS ORDERED: METOCLOPRAMIDE INJ 10 MG/2 ML (REGLAN) IV PRN (10:30)
[2017-08-29] MEDS ORDERED: MILK OF MAGNESIA 400 MG/5 ML 30 ML UDC PO PRN (10:30)
[2017-08-29] MEDS ORDERED: morphine INJ 4 MG/ML 1 ML (VIAL/SYRINGE) IV PRN (10:30)
[2017-08-29] MEDS ORDERED: ONDANSETRON 4 MG/2 ML (SDV) Z0FRAN IV PRN (10:30)
[2017-08-29] MEDS ORDERED: diphenhydrAMINE 50 MG/ML INJ (BENADRYL) IV PRN (10:30)
[2017-08-29] MEDS ORDERED: NALOXONE 0.4 MG/ML 1 ML (NARCAN) VIAL IV PRN (10:30)
[2017-08-29] MEDS ORDERED: proPOfol 200 MG/20 ML (DIPRIVAN) VIAL IV ONE (11:16)
[2017-08-29] MEDS ORDERED: BUPIVACAINE 0.5% 30 ML (SENSORCAINE) VIAL ONE (11:16)
[2017-08-29] MEDS ORDERED: DEXAMETHASONE 10 MG/ML (DECADRON) 1 ML VIAL ONE (11:39)
--- NOTE | 2017-08-29 11:57 | Consultation-Hospitalist ---
HPI History of Present Illness: HPI/Chief Complaint CC: Right hip fracture sustained in fall at home s/p uncomplicated repair by Dr Abraham POD # 0 HPI: This is an 86-year-old white female clinic patient Dr. Dawkins known to me from prior admission to [facility] in [place], [place] when knee replacement was completed an uncomplicated manner by Dr. Samayoa. She does have a history of a sending aortic aneurysm last CT scan was in May and reported to be stable without extension who presents after a fall at home and sustained a right hip fracture in the midst of being repaired by Dr. Abraham. I reviewed my consultation from [facility] in May to obtain most of the information. I reviewed and restarted most home medicine. Dr. Hopper was consulted for risk stratification especially from the aortic aneurysm. Patient was seen in ICU in recovery after an uncomplicated spinal anesthesia fracture repair. She is awake and alert but very cold so bear hugger will be initiated. 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) Alcohol Use: Denies Use Alcohol Beverage of Choice: Beer Recreational Drug Use: No Smoking Status: Never a Smoker 2nd Hand Smoke Exposure: No Physical Abuse Screen: No Sexual Abuse: No Recent Foreign Travel: No Contact w/other who traveled: No Recent Infectious Disease Expo: No Immunizations Up To Date Tetanus Booster (TDap): Less than 5yrs Date of Pneumonia Vaccine: Sep 23, 2015 Date of Influenza Vaccine: May 23, 2017 Surgeries Yes (RIGHT KNEE SURG MAY [address] Samayoa) Orthopedic Respiratory No Cardiovascular Yes (ACENDING AORTIC ANEURYSM) High Cholesterol, Hypertension Neurological No Genitourinary Yes (incontinence) Gastrointestinal Yes Gastroesophageal Reflux Musculoskeletal Yes Arthritis Endocrine History of Endocrine Disorders: Yes (THYROID) Endocrine Disorders: Hypothyroidsim HEENT History of HEENT Disorders: Yes (dry eye syndrome) HEENT Disorders: Macular Degeneration Cancer No Psychosocial History of Psychiatric Problem: Yes Behavioral Health Disorders: Depression Blood Transfusions History of Blood Disorders: No Family Medical History Family Hx: Patient reports no known family medical history. Review of Systems ROS-Unable to Obtain: unable to ascertain post op recovery status Constitutional: see HPI Physical Exam Physical Exam Vital Signs Vital Sign - Last 12Hours 08/28/17 08/28/17 08/28/17 15:50 16:10 18:10 Temp 98.3 Pulse 69 Resp 18 B/P (MAP) 189/96 (127) Pulse Ox 95 O2 Delivery Nasal Cannula O2 Flow Rate 2.00 FiO2 100 Capillary Refill : Less Than 3 SecondsLess Than 3 Seconds General Appearance: WD/WN, Mild Distress (due to shivering) Eyes: Bilateral Eye Normal Inspection, Bilateral Eye PERRL HEENT: PERRL/EOMI, Normal ENT Inspection, Pharynx Normal Neck: Full Range of Motion, Normal Inspection, Non Tender, Supple, Carotid Bruit Respiratory: Chest Non Tender, Lungs Clear, Normal Breath Sounds, No Accessory Muscle Use, No Respiratory Distress Cardiovascular: Regular Rate, Rhythm, No Edema, No Gallop, No JVD, No Murmur, Normal Peripheral Pulses Gastrointestinal: Normal Bowel Sounds, No Organomegaly, No Pulsatile Mass, Non Tender, Soft Back: Normal Inspection, No CVA Tenderness, No Vertebral Tenderness Extremity: Normal Capillary Refill, Normal Inspection, Normal Range of Motion ( decreased due to postop status), Non Tender, No Calf Tenderness, No Pedal Edema Neurologic/Psychiatric: Alert, Oriented x3, No Motor/Sensory Deficits, Normal Mood/Affect Skin: Normal Color, Warm/Dry Lymphatic: No Adenopathy Results Results/Procedures Lab Laboratory Tests 08/28/17 15:51 Assessment/Plan Admission Diagnosis Assessment: s/p right hip fracture repair POD # today uncomplicated by Dr Abraham HTN HLP Ascending AA stable per CT 06/08 Dry eye syndrome GERD OA Recent knee replacement 06/[address] [facility] Samayoa Urinary incontinence Depression Assessment and Plan Plan: Pain control IRU evaluation Monitor BP and labs Anti-emetics Home meds were reconciled and restarted PPI Clinical Quality Measures DVT/VTE Risk/Contraindication: Risk Factor Score Per Nursin RFS Level Per Nursing on Admit: 4+=Very High AYLIN ROSALES DO Aug 29, 2017 11:57
[2017-08-29] MEDS ORDERED: LEVO100T7 PO (11:58)
--- NOTE | 2017-08-29 12:05 | Progress Note-Post Operative ---
Post-Operative Progess Note Surgeon (s)/Jack Machine Operator (s) Surgeon KATRIN EDMONDS MD Jack Machine Operator: Israel Patrick PA-c Pre-Operative Diagnosis Right intertrochantier hip fracture Post-Operative Diagnosis same Procedure & Operative Findings Date of Procedure 08/29/17 Procedure Performed/Findings Long TFN right hip dictation number [id number] Anesthesia Type spinal Estimated Blood Loss Estimated blood loss (mL): 300ml Specimens/Packing Specimens Removed none Packing: none KATRIN EDMONDS MD Aug 29, 2017 12:05 pm
--- NOTE | 2017-08-29 12:17 | HISTORY AND PHYSICAL ---
DATE OF SERVICE: ORTHOPEDIC NEW INPATIENT EVALUATION DATE OF ADMISSION: 08/28/2017 CHIEF COMPLAINT: Right intertrochanteric hip fracture. HISTORY OF PRESENT ILLNESS: The patient is an 86-year-old female who fell at home yesterday sustaining this fracture. She presented to [facility] Emergency Room, was seen and evaluated and admitted to the hospitalist service and orthopedics was consulted for evaluation and definitive care. Cardiology was also consulted as the patient has an underlying thoracic aortic aneurysm for which she has been followed by Dr. Urbano Fong who saw her last 2 months ago. She underwent a right knee replacement 3 months ago. She presents desiring fixation of this fracture. PAST MEDICAL HISTORY: Hypertension, hyperlipidemia, thoracic aortic aneurysm. PAST SURGICAL HISTORY: Right total knee. ALLERGIES: NKDA. MEDICATIONS: Bisoprolol fumarate/HCTZ, cefdinir, ezetimibe, lansoprazole, sertraline, L-thyroxine. SOCIAL HISTORY: Does not drink, smoke or use drugs. She is , lives alone. FAMILY HISTORY: Noncontributory. REVIEW OF SYSTEMS: Depression, GERD, hypercholesterol, hypertension, incontinence, otherwise negative. PHYSICAL EXAMINATION: GENERAL: Well developed, well nourished female in apparent distress, alert and oriented to person, place and time. HEENT: NC/AT, PERRLA, EOMI. NECK: No JVD, lymphadenopathy, thyromegaly. LUNGS: Clear. HEART: Regular. ABDOMEN: Benign. UPPER EXTREMITIES: No complaints. Lower extremities, right hip externally rotated and shortened. Able to flex and extend her toes. Capillary refill brisk. Pulses palpable. Sensation intact. X-RAYS: AP and lateral right hip demonstrate intertrochanteric right hip fracture, displaced. LABORATORY DATA: Hemoglobin is 12.4, white count 9.2, platelets 243. INR 1.0, blood glucose 176, creatinine 1.2, albumin 3.9. IMPRESSION: 1. Right intertrochanteric hip fracture. 2. Thoracic aneurysm. 3. Hyperlipidemia. 4. Hypertension. 5. Incontinence. 6. Hypothyroidism. 7. Depression. 8. Gastroesophageal reflux disease. PLAN: 1. We will proceed to the operating room for trochanteric femoral nail placement, right hip. 2. Informed consent was done discussing the risks, benefits, alternatives, complications of the post procedure with the patient and one of her 3 daughters. We discussed the risks of amputation, heart attack, stroke, infection, blood clots, bleeding, nerve and artery injury, fracture dislocation, mechanical failure, hip screw cutout and a host of other potential medical and surgical complications. They voiced understanding and would like to proceed. No guarantees were offered or implied. Job ID: [id number] DocumentID: [id number] Dictated Date: 08/29/2017 10:21:46 Facilities Officer Date: 08/29/2017 12:16:41 Dictated By: KATRIN EDMONDS MD
--- NOTE | 2017-08-29 12:35 | Diagnostic Imaging Report ---
INDICATION: Fracture. FINDINGS: Several fluoroscopic images were submitted. There has been open reduction and internal fixation of a femoral neck fracture with an intramedullar brisa and compression screw. Fracture fragments are in anatomic alignment. IMPRESSION: Intraoperative fluoroscopy, as described. Dictated by: Dictated on workstation # [id number]
--- NOTE | 2017-08-29 12:57 | Diagnostic Imaging Report ---
INDICATION: Hip fracture. FINDINGS: There is stable post surgical changes of ORIF of right femoral neck fracture with intramedullary brisa and compression screw. Fracture fragments are in anatomic alignment. The remainder of the pelvis and left hip are intact. IMPRESSION: Stable post surgical changes of the right hip. Dictated by: Dictated on workstation # [id number]
[2017-08-29] MEDS: KETOROLAC 15 MG/ML VIAL IM/IV SCH ×3 (13:28→23:08)
[2017-08-29] MEDS: meTOprolol 5 MG/5 ML (LOPRESSOR) VIAL IV SCH ×2 (13:28→17:41)
[2017-08-29] MEDS: ACETAMINOPHEN 325 MG TABLET/CAPLET (TYLENOL) PO PRN (15:19)
[2017-08-29] MEDS ORDERED: VIT1CAPS5 PO (15:37)
[2017-08-29] MEDS ORDERED: CYCL1DRO OU (15:37)
[2017-08-29] MEDS ORDERED: TRAM50TA2 PO (15:37)
[2017-08-29] MEDS ORDERED: CETI10TA17 PO (15:37)
[2017-08-29] MEDS ORDERED: MEPERIDINE (DEMEROL) INJ 50 MG/ML IM PRN (16:00)
[2017-08-29] MEDS: PROMETHAZINE INJ 25 MG/ML (PHENERGAN) AMP IM PRN ×2 (16:09→20:18)
[2017-08-29] MEDS ORDERED: fentaNYL INJECTION 100 MCG/2 ML AMP IVP PRN (16:30)
[2017-08-29] MEDS: ceFAZolin 2 GM/50 ML NS 50 ML IV SCH (17:41)
[2017-08-29] MEDS: SENNOSIDES 8.6 MG (SENOKOT) TAB PO SCH (20:15)
[2017-08-29] MEDS: DEXAMETHASONE 4 MG/ML SDV (DECADRON) IV SCH (20:15)
[2017-08-29] MEDS: MEPERIDINE (DEMEROL) INJ 50 MG/ML IM PRN (20:18)
[2017-08-29] MEDS ORDERED: VANCOMYCIN 1 GM/NS 250 ML IVPB IV NR ×2 (22:30)
[2017-08-29] MEDS ORDERED: VANCOMYCIN INJECTION 1,000 MG in NS (IVPB) 250 ML IV ONE (22:30)
[2017-08-30] VITALS: BP 131/60
--- NOTE | 2017-08-30 00:25 | OPERATIVE REPORT ---
DATE OF SERVICE: PREOPERATIVE DIAGNOSIS: Right intertrochanteric hip fracture. POSTOPERATIVE DIAGNOSIS: Right intertrochanteric hip fracture. PROCEDURE PERFORMED: Long trochanteric femoral nail, right hip. SURGEON: Katrin Abraham MD. RADIOLOGY TRANSPORTER: Israel Patrick PA-C. ANESTHESIA: Spinal. ESTIMATED BLOOD LOSS: 300 mL. FLUIDS: 1500 mL. URINE OUTPUT: 300 mL. CONDITION FOLLOWING PROCEDURE: Stable. COMPLICATIONS: None. START TIME: 11:02. END TIME: 11:35. COMPONENTS PLACED: [employer] 11 mm x 130 degree titanium TFNA 320 mm in length right with TFNA helical blade 95 mm in length and a single 5.0 titanium locking screw. The screwdriver for the locking screw is a T25 star drive. The TFNA is the new TFN that we started using in 2017 at [facility]. INDICATIONS: The patient is an 86-year-old female who fell at home sustaining this fracture, presented to the [facility] emergency room, was seen and evaluated and admitted to the hospitalist service for preop optimization. Dr. Hopper, cardiology, has seen the patient preoperatively. Treatment options were discussed and she and the family elected to proceed with surgery. An informed consent was done. Please see H and P. DESCRIPTION OF PROCEDURE: The patient was taken to the operating and properly identified. Spinal anesthetic was administered and she was positioned on the fracture table, the right leg in longitudinal traction, the left leg in a well leg little with care to protect the left peroneal nerve. The right hip was sterilely prepped and draped in a normal fashion for surgery. The tip of the trochanter was identified and skin incision made starting at the tip of the trochanter extending proximally 3 inches. This was carried down to the tensor fascia, which was opened in line with the skin incision. The trochanter was palpated and a guidepin placed through the trochanter down to the level of the lesser trochanter. Once satisfied with guide pin position, it was over drilled with the cannulated drill. The guide pin was removed and a beaded guide brisa was placed through the trochanter across the fracture down to the knee in a center-center position. This was over reamed starting with an 8.5 mm reamer followed by a 10, 11 and 12 mm reamers. We had some with the 12. It was measured for a 320 mm brisa with care to leave it well proximal to the total knee to avoid stress riser. The brisa was then passed over the guide pin and seated down to place the guide brisa for the helical blade, a guidepin for the helical blade into the femoral head in a center-center position. Utilizing the locking jig laterally, the cannulas were placed against the skin. A 2 cm skin incision was placed laterally, carried down through the tensor fascia and vastus lateralis to the bone and the guide cannulas were advanced to the bone. Guide pin was placed through the guide cannulas across the brisa into the femoral head in a center-center position and checked in the AP and lateral planes. It measured for a 99 mm helical blade. A 95 was selected to avoid leaving it long. The lateral cortical drill was then placed and the helical blade was placed over the guide pin through the brisa up into the head in a center-center position. It was statically tightened and backed off a half turn and then the fracture was compressed and then again statically tightened. The locking jig was removed and fracture and hardware position was again checked in AP and lateral planes to confirm optimization of position. The leg was then taken out at adduction, placed in abduction and we aligned for the distal dynamic cross screw. The starting position was identified along the lateral aspect with a hemostat and then developed with a 10 blade scalpel. A hemostat was used to develop the incision down to the lateral cortex of the femur. The drill guide then passed to allow lateral cortex of the femur. Lateral cortex brisa and medial cortex drilled. It was then measured and a 5.0 mm distal cross screw was placed engaging cortices bilaterally. This was checked in the AP view as well, confirming position and length. Final images and education pictures were taken and the leg was placed back into neutral to adduction. The skin incisions were irrigated with 3 liters antibiotic saline, it was pulse lavaged. The tensor fascia was closed with a running #2 V-Loc, the deep subq with #1 undyed Vicryl Plus suture, deep tunnel with Vicryl plus suture, superficial in a running 3-0 Caprosyn and subcuticular stitch in the skin. The helical blade incision was closed with 2-0 undyed Vicryl Plus suture in the subq as well as the distal incision. All were then dressed with Xeroform, 4 x 4s, ABDs and tape and the patient was transferred from the OR table to the hospital bed and returned to recovery room in stable condition. No complications. Job ID: [id number] DocumentID: [id number] Dictated Date: 08/29/2017 12:03:42 Switch Maker Date: 08/30/2017 00:24:20 Dictated By: KATRIN ABRAHAM MD
[2017-08-30] MEDS: meTOprolol 5 MG/5 ML (LOPRESSOR) VIAL IV SCH ×2 (00:34→06:11)
[2017-08-30] MEDS: MEPERIDINE (DEMEROL) INJ 50 MG/ML IM PRN ×2 (00:35→05:23)
[2017-08-30] MEDS: PROMETHAZINE INJ 25 MG/ML (PHENERGAN) AMP IM PRN ×2 (00:36→05:23)
[2017-08-30 04:00] VITALS: BP 160/60
[2017-08-30] MEDS: NS IV 1000 ML 1,000 ML IV SCH ×2 (06:11→09:27)
[2017-08-30] MEDS: CATHETER FLUSH 10 ML SYR IV SCH ×3 (06:11→20:48)
[2017-08-30] MEDS: ceFAZolin 2 GM/50 ML NS 50 ML IV SCH (06:16)
[2017-08-30 06:20] LABS: HEMOGLOBIN 8.8 G/DL (11.5-16.0); MEAN PLATELET VOLUME 9.9 FL (7.4-10.4); RED BLOOD COUNT 2.97 10^6/uL (4.35-5.85); WHITE BLOOD COUNT 5.8 10^3/uL (4.3-11.0)
[2017-08-30 07:01] LABS: ALANINE AMINOTRANSFERASE 9 U/L (0-55); ALBUMIN 2.9 GM/DL (3.2-4.5); ALKALINE PHOSPHATASE 49 U/L (40-136); BILIRUBIN,TOTAL 0.4 MG/DL (0.1-1.0); BUN/CREATININE RATIO 19; CALCIUM 8.2 MG/DL (8.5-10.1); CARBON DIOXIDE 22 MMOL/L (21-32); CHLORIDE 106 MMOL/L (98-107); CREATININE SERUM 0.85 MG/DL (0.60-1.30); GFR ESTIMATED > 60; GLUCOSE 122 MG/DL (70-105); POTASSIUM 4.2 MMOL/L (3.6-5.0); SODIUM 139 MMOL/L (135-145); TOTAL PROTEIN 5.5 GM/DL (6.4-8.2)
[2017-08-30 08:00] VITALS: BP 138/63
--- NOTE | 2017-08-30 08:01 | Cardiology Progress Note ---
Subjective Date Seen by Provider: Aug 30, 2017 Time Seen by Provider: 07:58 Subjective/Events-last exam Patient is laying down in bed, denied any chest pain or shortness of breath. No palpitation. Review of Systems General: No Chills, No Night Sweats, No Fatigue, No Malaise, No Appetite, No Other HEENT: No Head Aches, No Visual Changes, No Eye Pain, No Ear Pain, No Dysphasia , No Sinus Congestion, No Post Nasal Drip, No Sore Throat, No Other Pulmonary: No Dyspnea, No Cough, No Pleuritic Chest Pain, No Other Cardiovascular: No: Chest Pain, Palpitations, Orthopnea, Paroxysmal Noc. Dyspnea, Edema, Lt Headedness, Other Objective-Cardiology Exam Last Set of Vital Signs Vital Signs 08/28/17 08/30/17 08/30/17 21:00 04:00 07:03 Temp 97.2 Pulse 65 Resp 18 B/P (MAP) 160/60 (93) Pulse Ox 95 O2 Delivery Nasal Cannula O2 Flow Rate 1.00 FiO2 100 Capillary Refill : Less Than 3 SecondsLess Than 3 Seconds I&O Intake and Output 08/30/17 00:00 Intake Total 1770 ml Output Total 1710 ml Balance 60 ml Intake Oral 720 ml IV Total 1050 ml Output Urine Total 1410 ml Estimated Blood Loss 300 ml General: Alert, Oriented X3, Cooperative HEENT: Atraumatic, PERRLA Neck: Supple, No JVD, No Thyromegaly Lungs: Clear to Auscultation, Normal Air Movement Heart: Regular Rate, Normal S1, Normal S2, No Murmurs Abdomen: Normal Bowel Sounds, Soft, No Tenderness, No Hepatosplenomegaly, No Masses Extremities: No Clubbing, No Cyanosis, No Edema, Normal Pulses, No Tenderness/ Swelling Skin: No Rashes, No Breakdown, No Significant Lesion Neuro: Normal Speech, Normal Tone, Sensation Intact Psych/Mental Status: Mental Status NL, Mood NL Results Lab Laboratory Tests 08/30/17 05:23 A/P-Cardiology Admission Diagnosis Thoracic aortic aneurysm Hypertension Hyperlipidemia Hip fracture Assessment/Plan Right hip fracture, status post surgical repair done yesterday and recovering well Hypertension, restart oral bisoprolol/HCTZ and monitor her tolerance and response. Thoracic aortic aneurysm, seen and evaluated by Dr. Jhon Fong. Continue to monitor. Hyperlipidemia, restart Zetia and monitor History of urinary incontinence Family history of thoracic aneury Clinical Quality Measures DVT/VTE Risk/Contraindication: Risk Factor Score Per Nursin RFS Level Per Nursing on Admit: 4+=Very High JAYME VAIL MD Aug 30, 2017 08:01
--- NOTE | 2017-08-30 08:33 | Progress Note (SOAP) ---
Subjective Date Seen by Provider: Aug 30, 2017 Time Seen by Provider: 08:45 Subjective/Events-last exam PT REPORTS THAT SHE IS FEELING BETTER - SHE DID NOT GET A MENU YESTERDAY - ONE WAS JUST BROUGHT THIS MORNING. THE PHYSICAL THERAPIST REPORTS THAT SHE THINKS SHAYY IS DOING QUITE WELL AND WILL DO WELL WITH INPATIENT REHAB PT DENIES BOWEL MOVEMENT, BUT IS PASSING GAS Review of Systems General: Fatigue HEENT: No Head Aches Pulmonary: No Dyspnea, No Cough Cardiovascular: No: Chest Pain, Palpitations Gastrointestinal: No: Nausea, Abdominal Pain Genitourinary: No Dysuria Musculoskeletal: leg pain (RIGHT HIP) Neurological: Weakness Objective Exam Vital Signs Date Time Temp Pulse Resp B/P (MAP) Pulse Ox O2 Delivery O2 Flow Rate FiO2 08/30/17 07:03 95 Nasal Cannula 1.00 08/30/17 07:00 63 08/30/17 04:00 97.2 65 18 160/60 (93) 93 Nasal Cannula 3.00 08/30/17 03:25 95 Nasal Cannula 1.00 08/30/17 01:00 66 08/30/17 00:00 98.3 71 18 131/60 (83) 93 Nasal Cannula 3.00 08/29/17 21:48 95 Nasal Cannula 1.00 08/29/17 21:00 92 Nasal Cannula 3.00 08/29/17 19:22 97 Nasal Cannula 2.00 08/29/17 19:17 98.7 85 18 99/58 (72) 96 Nasal Cannula 3.00 08/29/17 19:00 84 08/29/17 16:16 100.3 88 18 154/75 (101) 96 Nasal Cannula 3.00 08/29/17 15:07 93 Nasal Cannula 5.00 08/29/17 14:00 92 Nasal Cannula 3.00 08/29/17 13:40 100.1 80 18 137/66 (89) 92 Nasal Cannula 3.00 08/29/17 13:20 100.1 80 18 137/66 (89) 92 Nasal Cannula 3.00 08/29/17 12:00 106/56 (73) 08/29/17 08:58 95 Room Air 3.00 I & O 08/30/17 07:00 Intake Total 2220 ml Output Total 1850 ml Balance 370 ml Capillary Refill : Less Than 3 SecondsLess Than 3 Seconds General Appearance: No Apparent Distress, WD/WN HEENT: PERRL/EOMI, Pharynx Normal Neck: Full Range of Motion, Supple Respiratory: Chest Non Tender, Lungs Clear, Normal Breath Sounds, No Accessory Muscle Use Cardiovascular: Regular Rate, Rhythm Gastrointestinal: normal bowel sounds, non tender, soft Extremity: Pedal Edema (TRACE) Neurologic/Psychiatric: Alert, Oriented x3, No Motor/Sensory Deficits, Normal Mood/Affect Skin: Warm/Dry, Other (SURGICAL DRESSING IN PLACE, RIGHT LATERAL HIP) Results Lab Laboratory Tests 08/30/17 05:23: White Blood Count 5.8, Red Blood Count 2.97L, Hemoglobin 8.8#L, Mean Corpuscular Hemoglobin 30, Red Cell Distribution Width 12.0, Platelet Count 156 , Mean Platelet Volume 9.9, Sodium Level 139, Potassium Level 4.2, Chloride Level 106, Carbon Dioxide Level 22, Anion Gap 11, Blood Urea Nitrogen 16, Creatinine 0.85, Estimat Glomerular Filtration Rate > 60, BUN/Creatinine Ratio 19, Glucose Level 122H, Calcium Level 8.2L, Total Bilirubin 0.4, Aspartate Amino Transf (AST/SGOT) 17, Alanine Aminotransferase (ALT/SGPT) 9, Alkaline Phosphatase 49, Total Protein 5.5L, Albumin 2.9L Assessment/Plan Assessment/Plan Assess & Plan/Chief Complaint RIGHT HIP FRACTURE - REPAIR ON 08/29/17 HTN HYPERLIPIDEMIA DEPRESSION OA ASCENDING AORTIC ANEURYSM GERD RIGHT HIP FRACTURE - REPAIR ON 08/29/17 - IMPROVED PAIN - DOING WELL WITH THERAPY - PLAN INPATIENT REHAB. HTN - CONTROLLED -CONTINUE HOME MEDS HYPERLIPIDEMIA - RESUME HOME MEDICATIONS DEPRESSION - STABLE - RESUMED HOME MEDICATION OA ASCENDING AORTIC ANEURYSM - STABLE FROM LAST SCAN GERD - PPI Final Diagnosis RIGHT HIP FRACTURE - REPAIR ON 08/29/17 HTN HYPERLIPIDEMIA DEPRESSION OA ASCENDING AORTIC ANEURYSM GERD Clinical Quality Measures DVT/VTE Risk/Contraindication: Risk Factor Score Per Nursin RFS Level Per Nursing on Admit: 4+=Very High GENNA PORRAS MD Aug 30, 2017 08:33
[2017-08-30] MEDS ORDERED: SENNA W/DOCUSATE (SENOKOT S) TABLET PO SCH (09:00)
[2017-08-30] MEDS ORDERED: BISOPROLOL/HCTZ 5/6.25 MG (ZIAC) TAB PO SCH (09:00)
[2017-08-30] MEDS: eZETimibe 10 MG (ZETIA) TABLET PO SCH (09:22)
[2017-08-30] MEDS: MULTIVIT W/MINERALS TAB (THERAGRAN M) PO SCH (09:22)
[2017-08-30] MEDS: PANTOPRAZOLE 40 MG (PROTONIX) TAB PO SCH (09:22)
[2017-08-30] MEDS: DEXAMETHASONE 4 MG/ML SDV (DECADRON) IV SCH (09:22)
[2017-08-30] MEDS: DOCUSATE SODIUM 100 MG (COLACE) CAP PO SCH ×2 (09:22→20:49)
[2017-08-30] MEDS: SERTRALINE 50 MG (ZOLOFT) TABLET PO SCH (09:23)
[2017-08-30] MEDS: SENNOSIDES 8.6 MG (SENOKOT) TAB PO SCH ×2 (09:23→20:49)
[2017-08-30] MEDS: HYDROcodone/APAP 5 MG/325 MG (LORTAB) TAB PO PRN ×4 (09:26→22:29)
--- NOTE | 2017-08-30 09:32 | Physical Therapy Evaluation ---
PT Evaluation-General Medical Diagnosis Admission Date Aug 28, 2017 at 17:58 Medical Diagnosis: right hip fracture Onset Date: Aug 28, 2017 Therapy Diagnosis Therapy Diagnosis: debility Height/Weight Height (Feet): 5 Height (Inches): 3.00 Weight (Pounds): 151 Weight (Ounces): 6.0 Precautions Precautions/Isolations: Fall Prevention, Standard Precautions Weight Bear Status Right Lower Extremity: Right Weight Bearing/Tolerated Left Lower Extremity: Left Weight Bearing/Tolerated Referral Physician: Jarad Reason for Referral: Evaluation/Treatment Medical History Pertinent Medical History: GERD, HTN Additional Medical History right TKR 05/2017 Current History fell on porch at home/family was present to call EMS Reviewed History: Yes Social History Home: Single Level Current Living Status: Alone Entry Into Home: Stairs With Railing PT Steps Into Home: 4 Prior/Core FIM Prior Level of Function Functional [place] Measure 0=Not Assessed/NA 4=Minimal Assistance 1=Total Assistance 5=Supervision or Setup 2=Maximal Assistance 6=Modified [place] 3=Moderate Assistance 7=Complete [place] Bed Mobility: 6 Transfers (B,C,W/C) (FIM): 6 Gait: 6 Locomotion: 6 was utilizing FWW prior due to right TKR PT Evaluation-Current Subjective Patient is in bed with family present and agrees to PT. Pain Numeric Pain Scale: 1 Location: Right Location Body Site: Hip Pain Description: Acute Comment: meds had been issued prior Pt/Family Goals ARU then home with home health and family assistance Objective Patient Orientation: Normal For Age Problem Solving: Good Attachments: IV ROM/Strength ROM Lower Extremities bilateral LE WNL Strength Lower Extremities right knee flexion/extension 3+/5; hip flexion NT; DF/PF 4/5 left knee flexion/extension 5/5; hip flexion 5/5; DF/PF 5/5 Integumentary/Posture Integumentary refer to nursing notes Bowel Incontinence: No Bladder Incontinence: No Posture WNL Neuromuscular (Tone, Coordination, Reflexes) grossly intact with all Sensory Vision: Functional Hearing: Functional Sensation Right Lower Extremit: Intact Sensation Left Lower Extremity: Intact Transfers Functional [place] Measure 0=Not Assessed/NA 4=Minimal Assistance 1=Total Assistance 5=Supervision or Setup 2=Maximal Assistance 6=Modified [place] 3=Moderate Assistance 7=Complete [place] Transfers (B, C, W/C) (FIM): 5 Scootin Supine to/from Sit: 5 Sit to/from Stand: 5 Gait Mode of Locomotion: Walk Anticipated Mode of Locomotion: Walk Gait (FIM): 4 Distance (FIM): 3=150 ft Distance: 150' Gait Level of Assist: 4 Gait Persons Needed: 1 Gait Assistive Device: FWW Comments/Gait Description CGA for safety/ safe and functional gait sequence with FWW Balance Sitting Static: Normal Sitting Dynamic: Normal Standing Static: Normal Assessment/Needs 86 y.o. female, will benefit from skilled PT to address functional strength and mobility to improve current LOF. From a PT standpoint, patient would benefit from ARU to ensure safe and modified independent return to home. Rehab Potential: Good PT Refinery Operator Goals Refinery Operator Goals PT Refinery Operator Goals Time Frame: Sep 17, 2017 Transfers (B,C,W/C) (FIM): 6 Gait (FIM): 6 Gait distance (FIM): 3=150 ft Distance: 300' Gait Level of Assist: 6 Gait Assistive Device: FWW Stairs (FIM): 5 # of Steps: 4 Stairs Level Of Assist: 5 PT Plan Treatment/Plan Treatment Plan: Continue Plan of Care Treatment Plan: Bed Mobility, Education, Functional Activity Matthew, Functional Strength, Gait, Safety, Therapeutic Exercise, Transfers Treatment Duration: Sep 17, 2017 Frequency: 11 times per week Estimated Hrs Per Day: .5 hour per day Patient and/or Family Agrees t: Yes Safety Risks/Education Patient Education: Safety Issues Teaching Recipient: Patient Teaching Methods: Discussion Response to Teaching: Verbalize Understanding Discharge Recommendations Therapy D/C Recommendations: Acute Rehab, Home w/ Family Support, Physical Therapy Home Care Time/GCodes Time In: 845 Time Out: 905 Total Billed Treatment Time: 20 Total Billed Treatment 1 visit EVMod 20 min G Codes Necessary: STACY Beltran PT Aug 30, 2017 09:32
[2017-08-30 12:00] VITALS: BP 127/56
--- NOTE | 2017-08-30 12:01 | Occupational Therapy Eval ---
OT Evaluation-General/PLF Medical Diagnosis Admission Date Aug 28, 2017 at 17:58 Medical Diagnosis: right hip fracture Onset Date: Aug 28, 2017 Therapy Diagnosis Therapy Diagnosis: decr self care, decr funct mobility, decr act mathew, weakness Height/Weight Height (Feet): 5 Height (Inches): 3.00 Weight (Pounds): 151 Weight (Ounces): 6.0 Precautions Precautions/Isolations: Fall Prevention, Standard Precautions Safety Interventions: None Weight Bear Status Weight Bearing Restriction: Weight Bearing/Tolerated Location Restriction: R LE Referral Physician: Jarad Medical History Pertinent Medical History: GERD, HTN, Macular Degenertion Additional Medical History Depression. Pt had R TKA 06/08 and was doing outpatient physical therapy. Urinary incontinence Current History Pt fell on porch, with R hip pain. ORIF R hip on 08-29-17. Reviewed History: Yes Social History Home: Single Level Current Living Status: Alone Entry Into Home: Stairs With Railing Steps Into Home: 4 ADL-Prior Level of Function ADL PLOF Comments Pt reported that she was independent with all basic self care needs prior to fall. She still drives and is an active community volunteer. 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 She has been walking with a FWW due to TKA. DME/Equipment: Bath Chair, Tub/Shower, Toilet/Riser OT Current Status Subjective Pt seen in room, up in bed, agreeable to OT. Family members present. Pt reported pain 1/10 in R hip Appearance Alert, cooperative Mental Status/Objective Patient Orientation: Person, Place, Time, Situation Attachments: IV Current Glasses/Contacts: Yes Hearing Aids: No Dentures/Partials: Yes Hand Dominance: Right Upper Extremity ROM Grossly WFL bilat Upper Extremity Sensation No problems, per pt report Upper Extremity Strength Grossly 4/5 bilat Edema: None observed ADL-Treatment ADL-Current Pt said that she has been up to [facility] twice and thought that she did well/ She walked 150' CGA, FWW with PT this morning and transfers were SBA Functional [place] Measure 0=Not Assessed/NA 4=Minimal Assistance 1=Total Assistance 5=Supervision or Setup 2=Maximal Assistance 6=Modified [place] 3=Moderate Assistance 7=Complete IndependenceIRFPAI Quality Coding Scale 6 Independent with activity with or without an assistive device 5 Patient requires set up or clean up by helper. Patient completes activity by themselves 4 Supervision or touching assist (CGA). [place] provide cues , steadying assist 3 The helper provides less than half the effort to complete the activity 2 The helper provides more than half the effort to complete the activity 1 Dependent. The helper does all the effort to complete an activity 7 Patient refused to complete or attempt activity 9 The patient did not perform the activity before the current illness or injury 88 Not attempted due to Medical conditions or safety concerns Education OT Patient Education: Purpose of tx/functional activities, Rehab process Teaching Recipient: Patient, Family Teaching Methods: Discussion Response to Teaching: Verbalize Understanding OT Usp Goals Usp Goals Time Frame: Sep 21, 2017 Eating (FIM): 6 Grooming(FIM): 6 Bathing(FIM): 6 Upper Body Dressing(FIM): 6 Lower Body Dressing(FIM): 6 Toileting(FIM): 6 Toilet/Commode Transfer(FIM): 6 Tub Transfer(FIM): 6 Shower Transfer(FIM): 6 Additional Goals: 1-Demonstrate ADL Tasks, 2-Verbalize Understanding, 3- ImproveStrength/Matthew 1=Demonstrate adherence to instructed precautions during ADL tasks. 2=Patient will verbalize/demonstrate understanding of assistive devices/ modifications for ADL. 3=Patient will improve strength/tolerance for activity to enable patient to perform ADL's. OT Education/Plan Problem List/Assessment Assessment: Decreased Activ Tolerance, Decreased UE Strength, Dependent Transfers, Impaired Self-Care Skills Pt would benefit from skilled OT to increase her independence in basic self care to allow her to safely return to her home and to decrease caregiver burden. Discharge Recommendations Plan/Recommendations: Continue POC Therapy D/C Recommendations: Acute Rehab Treatment Plan/Plan of Care Treatment,Training & Education: Yes Patient would benefit from OT for education, treatment and training to promote independence in ADL's, mobility, safety and/or upper extremity function for ADL' s. Plan of Care: ADL Retraining, Functional Mobility, UE Funct Exercise/Act, UE Neuromus Re-Ed/Coord Treatment Duration: Sep 21, 2017 Frequency: 5 times per week Estimated Hrs Per Day: .5 hour per day Agreement: Yes Rehab Potential: Good Time/GCodes Start Time: 11:27 Stop Time: 11:40 Total Time Billed (hr/min): 13 Billed Treatment Time visit, 13 minutes evaluation moderate intensity ELE LABOY OT Aug 30, 2017 12:01
--- NOTE | 2017-08-30 13:46 | Physical Therapy Daily Note ---
PT Daily Note-Current Subjective Patient is very agreeable to participate with PT. Pain Numeric Pain Scale: 2 Location: Right Location Body Site: Hip Pain Description: Acute Mental Status Patient Orientation: Normal For Age Attachments: IV Transfers Functional [place] Measure 0=Not Assessed/NA 4=Minimal Assistance 1=Total Assistance 5=Supervision or Setup 2=Maximal Assistance 6=Modified [place] 3=Moderate Assistance 7=Complete IndependenceIRFPAI Quality Coding Scale 6 Independent with activity with or without an assistive device 5 Patient requires set up or clean up by helper. Patient completes activity by themselves 4 Supervision or touching assist (CGA). [place] provide cues , steadying assist 3 The helper provides less than half the effort to complete the activity 2 The helper provides more than half the effort to complete the activity 1 Dependent. The helper does all the effort to complete an activity 7 Patient refused to complete or attempt activity 9 The patient did not perform the activity before the current illness or injury 88 Not attempted due to Medical conditions or safety concerns Transfers (B, C, W/C) (FIM): 5 Scootin Supine to/from Sit: 5 Sit to/from Stand: 5 Weight Bearing Right Lower Extremity: Right Weight Bearing/Tolerated Left Lower Extremity: Left Weight Bearing/Tolerated Gait Training Gait (FIM): 5 Distance (FIM): 3=150 ft Distance: 225' Gait Level of Assist: 5 Gait Assistive Device: FWW reciprocal pattern Exercises Seated Therapy Exercises: Ankle pumps, Long arc quads Seated Reps: 25 (2 sets) Assessment Patient donns DB kline with minimal assist bilaterally. Plan transfer to ARU in a.m. for continued care. PT Jail Goals Career Developer Goals PT Career Developer Goals Time Frame: Sep 17, 2017 Transfers (B,C,W/C) (FIM): 6 Gait (FIM): 6 Gait distance (FIM): 3=150 ft Distance: 300' Gait Level of Assist: 6 Gait Assistive Device: FWW Stairs (FIM): 5 # of Steps: 4 Stairs Level Of Assist: 5 PT Plan Treatment/Plan Treatment Plan: Continue Plan of Care Treatment Plan: Bed Mobility, Education, Functional Activity Matthew, Functional Strength, Gait, Safety, Therapeutic Exercise, Transfers Treatment Duration: Sep 17, 2017 Frequency: 11 times per week Estimated Hrs Per Day: .5 hour per day Patient and/or Family Agrees t: Yes Time/GCodes Time In: 1250 Time Out: 1315 Total Billed Treatment Time: 25 Total Billed Treatment 1 visit GT 11 min EX 14 min STACY TRIPP PT Aug 30, 2017 13:45
--- NOTE | 2017-08-30 14:01 | Progress Note (SOAP) ---
Subjective Date Seen by Provider: Aug 30, 2017 Subjective/Events-last exam Azeb is feeling better, agree with Rehab tomorrow, Demeral injection helped with pain last PM. PT was good. Objective Exam Vital Signs Date Time Temp Pulse Resp B/P (MAP) Pulse Ox O2 Delivery O2 Flow Rate FiO2 08/30/17 12:00 97.1 70 18 127/56 (79) 94 Nasal Cannula 3.00 08/30/17 08:00 97.4 65 18 138/63 (88) 95 Nasal Cannula 3.00 08/30/17 07:03 95 Nasal Cannula 1.00 08/30/17 07:00 63 08/30/17 04:00 97.2 65 18 160/60 (93) 93 Nasal Cannula 3.00 08/30/17 03:25 95 Nasal Cannula 1.00 08/30/17 01:00 66 08/30/17 00:00 98.3 71 18 131/60 (83) 93 Nasal Cannula 3.00 08/29/17 21:48 95 Nasal Cannula 1.00 08/29/17 21:00 92 Nasal Cannula 3.00 08/29/17 19:22 97 Nasal Cannula 2.00 08/29/17 19:17 98.7 85 18 99/58 (72) 96 Nasal Cannula 3.00 08/29/17 19:00 84 08/29/17 16:16 100.3 88 18 154/75 (101) 96 Nasal Cannula 3.00 08/29/17 15:07 93 Nasal Cannula 5.00 08/29/17 14:00 92 Nasal Cannula 3.00 I & O 08/30/17 07:00 Intake Total 2220 ml Output Total 1850 ml Balance 370 ml Capillary Refill : Less Than 3 SecondsLess Than 3 Seconds General Appearance: No Apparent Distress HEENT: PERRL/EOMI Neck: Normal Inspection Respiratory: Chest Non Tender Cardiovascular: Regular Rate, Rhythm Gastrointestinal: normal bowel sounds Extremity: Normal Capillary Refill, Other (Wound dressed and clean and dry at present. Normal post op swelling noted, of right hip.) Neurologic/Psychiatric: Oriented x3 Skin: Normal Color Results Lab Laboratory Tests 08/30/17 05:23: White Blood Count 5.8, Red Blood Count 2.97L, Hemoglobin 8.8#L, Hematocrit 30L, Mean Corpuscular Volume 101H, Mean Corpuscular Hemoglobin 30, Mean Corpuscular Hemoglobin Concent 30L, Red Cell Distribution Width 12.0, Platelet Count 156, Mean Platelet Volume 9.9, Sodium Level 139, Potassium Level 4.2, Chloride Level 106, Carbon Dioxide Level 22, Anion Gap 11, Blood Urea Nitrogen 16, Creatinine 0.85, Estimat Glomerular Filtration Rate > 60, BUN/Creatinine Ratio 19, Glucose Level 122H, Calcium Level 8.2L, Total Bilirubin 0.4, Aspartate Amino Transf (AST /SGOT) 17, Alanine Aminotransferase (ALT/SGPT) 9, Alkaline Phosphatase 49, Total Protein 5.5L, Albumin 2.9L Procedures IM nail to Right intratroch fracture in stable position secondary to fracture right hip. Assessment/Plan Assessment/Plan Assess & Plan/Chief Complaint Will proceed to Rehab at [facility] tomorrow, Follow up in office in 4 weeks Walker ambulation as tolerated Continue right TKA rehab and home exercise program ice, wound care as needed, cover as needed Laxative of choice. Would consider, ASA 325 BID EC, for VTE upon discharge if tolerated and no issues with renal function for one month. Pain control, and home health after discharge is part of over all plan. Final Diagnosis right hip fracture, s/p ORIF of right hip Clinical Quality Measures DVT/VTE Risk/Contraindication: Risk Factor Score Per Nursin RFS Level Per Nursing on Admit: 4+=Very High TIN HORTON Aug 30, 2017 14:01
[2017-08-30] MEDS ORDERED: ACHD5005 PO (14:12)
[2017-08-30] MEDS ORDERED: ASPI325T32 PO (14:12)
--- NOTE | 2017-08-30 14:59 | Anesthesia-Regional Post-Op ---
Regional Patient Condition Mental Status: Alert, Oriented x3 Circulation: Same as Pre-Op Headache: Absent Sensation: Full Recovery Motor Block: Absent Post Op Complications Complications None Follow Up Care/Instructions Patient Instructions None needed. Anesthesia/Patient Condition Patient is doing well, no complaints, stable vital signs, no apparent adverse anesthesia problems. She is sitting up in chair and plans to go to 2nd floor for inpatient rehab in the morning. HARINDER WHEAT DO Aug 30, 2017 14:59
[2017-08-30 16:14] VITALS: BP 121/56
[2017-08-30 19:16] VITALS: BP 145/67
[2017-08-31] MEDS: ACETAMINOPHEN 325 MG TABLET/CAPLET (TYLENOL) PO PRN (00:10)
[2017-08-31 00:18] VITALS: BP 132/63
[2017-08-31] MEDS: HYDROcodone/APAP 5 MG/325 MG (LORTAB) TAB PO PRN (03:29)
[2017-08-31 04:10] VITALS: BP 133/68
[2017-08-31] MEDS: MULTIVIT W/MINERALS TAB (THERAGRAN M) PO SCH (06:35)
[2017-08-31] MEDS: PANTOPRAZOLE 40 MG (PROTONIX) TAB PO SCH (06:35)
[2017-08-31] MEDS: CATHETER FLUSH 10 ML SYR IV SCH (06:35)
[2017-08-31 07:09] LABS: HEMOGLOBIN 8.3 G/DL (11.5-16.0); RED BLOOD COUNT 2.68 10^6/uL (4.35-5.85); RED CELL DISTRIBUTION WIDTH 12.1 % (10.0-14.5); WHITE BLOOD COUNT 6.4 10^3/uL (4.3-11.0)
[2017-08-31 07:27] LABS: ALANINE AMINOTRANSFERASE < 6 U/L (0-55); ALBUMIN 2.9 GM/DL (3.2-4.5); ALKALINE PHOSPHATASE 39 U/L (40-136); BILIRUBIN,TOTAL 0.3 MG/DL (0.1-1.0); BUN/CREATININE RATIO 18; CALCIUM 8.3 MG/DL (8.5-10.1); CARBON DIOXIDE 25 MMOL/L (21-32); CHLORIDE 108 MMOL/L (98-107); CREATININE SERUM 0.89 MG/DL (0.60-1.30); GFR ESTIMATED 60; GLUCOSE 85 MG/DL (70-105); POTASSIUM 3.7 MMOL/L (3.6-5.0); SODIUM 138 MMOL/L (135-145); TOTAL PROTEIN 5.2 GM/DL (6.4-8.2)
[2017-08-31 08:00] VITALS: BP 154/69
[2017-08-31] MEDS ORDERED: DOCU100C37 PO (08:25)
[2017-08-31] MEDS ORDERED: SENN-140 PO (08:25)
--- NOTE | 2017-08-31 08:26 | Progress Note (SOAP) ---
Subjective Date Seen by Provider: Aug 31, 2017 Time Seen by Provider: 08:26 Subjective/Events-last exam PT REPORTS ONLY SLEEPING ABOUT 2 HOURS LAST NIGHT - SHE HAD SENSATION OF ANXIOUSNESS, FOLLOWED BY CRAMPING IN HER RIGHT THIGH DOWN TO HER MEDIAL KNEE LAST NIGHT. SHE REPORTS THAT THE HYDROCODONE DID NOT WORK WELL FOR HER LAST NIGHT - SHE HAD A DOSE AT 10PM AND AGAIN AT 3 AM AND FINALLY GOT ABOUT 2 HOURS OF SLEEP. SHE DENIES OVERWHELMING PAIN, JUST NOT OPTIMALLY CONTROLLED. SHE DENIES BOWEL MOVEMENT, BUT FEELS LIKE SHE COULD GO TO THE RESTROOM TODAY. FAMILY IN ROOM AND SUPPORTIVE. Review of Systems General: Fatigue (DID NOT SLEEP WELL LAST NIGHT) HEENT: No Dysphasia Pulmonary: No Dyspnea, No Cough Cardiovascular: No: Chest Pain, Palpitations Gastrointestinal: No: Nausea, Abdominal Pain Genitourinary: No Dysuria Musculoskeletal: leg pain Neurological: Weakness Objective Exam Vital Signs Date Time Temp Pulse Resp B/P (MAP) Pulse Ox O2 Delivery O2 Flow Rate FiO2 08/31/17 04:10 98.0 66 17 133/68 (89) 95 Room Air 08/31/17 00:18 98.1 72 17 132/63 (86) 91 Room Air 08/30/17 21:00 Nasal Cannula 3.00 08/30/17 19:16 98.3 64 18 145/67 (93) 95 Room Air 08/30/17 19:13 95 Nasal Cannula 1.00 08/30/17 16:14 99.1 63 18 121/56 (77) 94 Room Air 08/30/17 12:00 97.1 70 18 127/56 (79) 94 Nasal Cannula 3.00 08/30/17 09:00 92 Nasal Cannula 3.00 I & O 08/31/17 07:00 Intake Total 3350 ml Output Total 500 ml Balance 2850 ml Capillary Refill : Less Than 3 SecondsLess Than 3 Seconds General Appearance: No Apparent Distress, WD/WN HEENT: PERRL/EOMI Respiratory: Chest Non Tender, Lungs Clear, Normal Breath Sounds, No Accessory Muscle Use Cardiovascular: Regular Rate, Rhythm Gastrointestinal: normal bowel sounds, non tender, soft Neurologic/Psychiatric: Alert, Oriented x3, Normal Mood/Affect Skin: Warm/Dry Results Lab Laboratory Tests 08/31/17 06:22: White Blood Count 6.4, Red Blood Count 2.68L, Hemoglobin 8.3L, Hematocrit 25L, Mean Corpuscular Volume 94, Mean Corpuscular Hemoglobin 31, Mean Corpuscular Hemoglobin Concent 33, Red Cell Distribution Width 12.1, Platelet Count 139, Mean Platelet Volume 11.0H, Sodium Level 138, Potassium Level 3.7, Chloride Level 108H, Carbon Dioxide Level 25, Anion Gap 5, Blood Urea Nitrogen 16, Creatinine 0.89, Estimat Glomerular Filtration Rate 60, BUN/Creatinine Ratio 18 , Glucose Level 85, Calcium Level 8.3L, Total Bilirubin 0.3, Aspartate Amino Transf (AST/SGOT) 17, Alanine Aminotransferase (ALT/SGPT) < 6, Alkaline Phosphatase 39L, Total Protein 5.2L, Albumin 2.9L Assessment/Plan Assessment/Plan Assess & Plan/Chief Complaint RIGHT HIP FRACTURE - REPAIR ON 08/29/17 HTN HYPERLIPIDEMIA DEPRESSION OA ASCENDING AORTIC ANEURYSM GERD RIGHT HIP FRACTURE - REPAIR ON 08/29/17 - PT REPORTS MUSCLE SPASMS AND UNCONTROLLED DISCOMFORT LAST NIGHT - I HAVE RECOMMENDED TRIAL OF PERCOCET AND WILL LEAVE HYDROCODONE ON MEDICATION REGIMEN IN CASE THE PERCOCET DOES NOT CONTROL HER PAIN. HOWEVER, I THINK THE HYDROCODONE WAS MAKING HER FEEL ANXIOUS AND THAT IS THE REASON SHE DID NOT SLEEP WELL LAST NIGHT. I HAVE ALSO ORDERED VOLTAREN GEL TO HER ANTERIOR RIGHT THIGH - AVOIDING THE SURGICAL SITE, DOWN TO THE KNEE ON THE RIGHT DUE TO DISCOMFORT. SHE IS OTHERWISE DOING WELL WITH THERAPY - PLAN INPATIENT REHAB TRANSFER THIS MORNING. HTN - CONTROLLED -CONTINUE HOME MEDS HYPERLIPIDEMIA - RESUMED HOME MEDICATIONS DEPRESSION - STABLE - RESUMED HOME MEDICATION OA ASCENDING AORTIC ANEURYSM - STABLE FROM LAST SCAN GERD - PPI Clinical Quality Measures DVT/VTE Risk/Contraindication: Risk Factor Score Per Nursin RFS Level Per Nursing on Admit: 4+=Very High GENNA PORRAS MD Aug 31, 2017 08:26
[2017-08-31] MEDS ORDERED: OXYC-197 PO (08:42)
[2017-08-31] MEDS ORDERED: oxyCODONE/APAP 5/325MG (PERCOCET 5) TABLET PO NR (08:45)
[2017-08-31] MEDS ORDERED: DICL100G18 TP (08:51)
[2017-08-31] MEDS ORDERED: DICLOFENAC 1% GEL 100 GM (VOLTAREN) TUBE TOP SCH (09:00)
[2017-08-31] MEDS ORDERED: BISOPROLOL/HCTZ 5/6.25 MG (ZIAC) TAB PO SCH (09:00)
[2017-08-31] MEDS: eZETimibe 10 MG (ZETIA) TABLET PO SCH (09:10)
[2017-08-31] MEDS: SENNOSIDES 8.6 MG (SENOKOT) TAB PO SCH (09:10)
[2017-08-31] MEDS: DOCUSATE SODIUM 100 MG (COLACE) CAP PO SCH (09:10)
[2017-08-31] MEDS: SERTRALINE 50 MG (ZOLOFT) TABLET PO SCH (09:10)
== END 2017-08-31 09:40 | DRG 482 ==
LOC: EDUNIT# 15:43 → ER 15:44 → ICU 17:58 → 4TH 08-29 13:20
PROVIDERS: ADMIT Internal Medicine; ATTEND Family Medicine
PROC: 3E0T3BZ Introduction of Anesthetic Agent into Peripheral Nerves and Plexi, Percutaneous Approach (ICD-10-PCS; 2017-08-28)
PROC: 0QS606Z Reposition Right Upper Femur with Intramedullary Internal Fixation Device, Open Approach (ICD-10-PCS; principal; 2017-08-29 10:23)
DX: S72.141A Displaced intertrochanteric fracture of right femur, initial encounter for closed fracture (principal); I71.2 Thoracic aortic aneurysm, without rupture; E78.00 Pure hypercholesterolemia, unspecified; E03.9 Hypothyroidism, unspecified; I10 Essential (primary) hypertension; K21.9 Gastro-esophageal reflux disease without esophagitis; F32.9 Major depressive disorder, single episode, unspecified; M19.91 Primary osteoarthritis, unspecified site; H35.30 Unspecified macular degeneration; Z96.651 Presence of right artificial knee joint; R32 Unspecified urinary incontinence; H04.129 Dry eye syndrome of unspecified lacrimal gland; M62.838 Other muscle spasm; W19.XXXA Unspecified fall, initial encounter; Y92.099 Unspecified place in other non-institutional residence as the place of occurrence of the external cause
CPT/HCPCS: 36415; 71045; 72170; 80053; 81000; 85025; 85027; 85610; 93005; 94664; 94760; 96374; 96375; 96376

== ENCOUNTER 2017-08-31 08:42 | Inpatient (IN) | payer MEDICARE, OTHER ==
[~2017-08-31] VITALS: Ht 162.6 cm; Wt 67.6 kg
[~2017-08-31 08:42] MED LIST changes: +ACHD5005 PO; +ASPI325T32 PO; +CETI10TA17 PO; +CYCL1DRO OU; +DOCU100C37 PO; +LEVO100T7 PO; +OXYC-197 PO; +SENN-140 PO; +TRAM50TA2 PO; +VIT1CAPS5 PO
[2017-08-31] MEDS ORDERED: DICL100G18 TP (08:51)
[2017-08-31 09:40] VITALS: BP 132/73
[2017-08-31 10:26] VITALS: BP 130/54
--- NOTE | 2017-08-31 10:54 | Physical Therapy Evaluation ---
PT Evaluation-General Medical Diagnosis Admission Date Aug 31, 2017 at 09:20 Medical Diagnosis: Right hip fx Onset Date: Aug 28, 2017 Therapy Diagnosis Therapy Diagnosis: weakness; abn gait Height/Weight Height (Feet): 5 Height (Inches): 3.00 Weight (Pounds): 151 Weight (Ounces): 6.0 Precautions Precautions/Isolations: Standard Precautions Weight Bear Status Right Lower Extremity: Right Weight Bearing/Tolerated Left Lower Extremity: Left Full Weight Bearing Referral Physician: Ramon Reason for Referral: Evaluation/Treatment Medical History Pertinent Medical History: GERD, HTN, Macular Degenertion Additional Medical History Right TKR by Dr Samayoa in May 2017; aortic aneurysm; depression Current History Pt was opening the door at home and it kept moving, knocking her off balance and causing her to fall. Sustained a right hip fracture and is post repair with a nail. Transferred to ARU for continued skilled PT intervention. Reviewed History: Yes Social History Current Living Status: Alone (good family support) Entry Into Home: Stairs With Railing PT Steps Into Home: 3 Prior/Core FIM Prior Level of Function Functional [place] Measure 0=Not Assessed/NA 4=Minimal Assistance 1=Total Assistance 5=Supervision or Setup 2=Maximal Assistance 6=Modified [place] 3=Moderate Assistance 7=Complete [place] Bed Mobility: 7 Transfers (B,C,W/C) (FIM): 7 Gait: 7 Pt was indep with all mobility. Still drives; community ambulator PT Evaluation-Current Subjective Agreeable to PT. Voiced some nausea at start of treatment and as we finished, she reported she felt "trembly and weak". Pt's daughter reported she had taken pain meds this morning with very little to eat. Pain Numeric Pain Scale: 4 Location: Right Location Body Site: Hip Pain Description: Ache Pt/Family Goals HOme alone when able. Objective Patient Orientation: Person, Place, Time, Situation Problem Solving: Good ROM/Strength ROM Lower Extremities WFL Strenght Lower Extremities Left LE strength is WFL Right LE strength is grossly 3/5 throughout Integumentary/Posture Integumentary Refer to nursing notes. Bowel Incontinence: Yes (at times; wears a pad) Bladder Incontinence: No Posture Normal and symmetrical Neuromuscular (Tone, Coordination, Reflexes) No noted functional deficits Sensory Vision: Functional Hearing: Functional Hand Dominance: Right Sensation Right Lower Extremit: Intact Sensation Left Lower Extremity: Intact Transfers Functional [place] Measure 0=Not Assessed/NA 4=Minimal Assistance 1=Total Assistance 5=Supervision or Setup 2=Maximal Assistance 6=Modified [place] 3=Moderate Assistance 7=Complete IndependenceIRFPAI Quality Coding Scale 6 Independent with activity with or without an assistive device 5 Patient requires set up or clean up by helper. Patient completes activity by themselves 4 Supervision or touching assist (CGA). [place] provide cues , steadying assist 3 The helper provides less than half the effort to complete the activity 2 The helper provides more than half the effort to complete the activity 1 Dependent. The helper does all the effort to complete an activity 7 Patient refused to complete or attempt activity 9 The patient did not perform the activity before the current illness or injury 88 Not attempted due to Medical conditions or safety concerns Transfers (B, C, W/C) (FIM): 3 Scootin Roll Left to Right (QC): 4 Supine to/from Sit: 3 Sit to/from Stand: 4 Sit to Lying (QC): 3 (asssit with both legs into bed) Lying to Sitting/Side of Bed(Q: 4 (SB-CGA with transfers) Sit to Stand (QC): 4 (CGA for safety; cues for hand placement) Chair/Dnw-ox-Hclpd Xfer(QC): 4 (CGA with use of FWW) Car Transfer (QC): 3 (assist with right leg and with turning) Gait Mode of Locomotion: Walk Anticipated Mode of Locomotion: Walk Gait (FIM): 2 Distance (FIM): 7=598-96 ft Walk 10 feet (QC): 4 Walk 50 ft with 2 Turns(QC): 4 Walk 150 ft (QC): 88 (unable to walk this distance at this time. ) Walking 10ft/uneven surface-QC: 4 Distance: 125 ft; 50 ft x 3 Gait Level of Assist: 4 (CGA for safety) Gait Persons Needed: 1 Gait Assistive Device: FWW Comments/Gait Description Pt has difficulty with step through left as WB through the right is painful at times. Tends to try to walk too fast, her gait pattern improves if she slows down a bit. Wheelchair Training Does the Pt Use a Wheelchair?: No Stairs Stairs (FIM): 2 #of Steps: 1 Level of Assist: 4 1 Step (curb) (QC): 4 4 Steps (QC): 88 (unsafe to attempt) Assistive Device: Walker 12 Steps (QC): 88 Balance Sitting Static: Good Sitting Dynamic: Good Standing Static: Fair Standing Dynamic: Fair Picking up an Object (QC): 88 (unsafe ) Treatment Gait training with work on step through and davina/speed. Toileted, SBA with toilet transfer and pericare as well as clothing. Stood at sink to wash hands. Supine LE ther ex x 12 for AP, QS and glut sets Nursing summoned when pt reported feeling "trembly"; vitals were WNL, nurse applied gel to the right hip/thigh region. Nurse aware of pt not feeling well this morning. Assessment/Needs Post fall with right hip fracture that has been repaired. She presents with the need for assist with all transfers, bed mobility and limited funcitonal gait ; she has right LE strength deficits as well. She is unable to manage at home alone at this time and would significantly benefit from skilled PT intervention to work on her deficits to allow her to return home at a mod indep level. Rehab Potential: Good PT Short Term Goals Short Term Goals Time Frame: Sep 07, 2017 Transfers (B,C,W/C) (FIM): 4 Gait (FIM): 4 Distance (FIM): 3=150 ft Gait Assistive Device: FWW PT Assisted Goals Assisted Goals PT Assisted Goals Time Frame: Sep 21, 2017 Transfers (B,C,W/C) (FIM): 6 Sit to Lying (QC): 6 Lying-Sitting on Side/Bed(QC): 6 Sit to Stand (QC): 6 Roll Left to Right (QC): 6 Chair/Hcm-lp-Rweay Xfer(QC): 6 Car Transfer (QC): 6 Does the Patient Walk: Yes Gait (FIM): 6 Gait distance (FIM): 3=150 ft Walk 10 feet (QC): 6 Walk 10ft-Uneven Surface(QC): 6 Walk 50ft with 2 Turns (QC): 6 Walk 150 ft (QC): 6 Gait Assistive Device: FWW Does the Pt use WC or Scooter?: No Stairs (FIM): 5 # of Steps: 8 1 Step (curb) (QC): 6 4 Steps (QC): 6 12 Steps (QC): 88 Picking up an Object (QC): 5 (mod indep) All LTG's are set for her to be mod indep at home and able to return home alone and care for herself. PT Plan Problem List Problem List: Activity Tolerance, Functional Strength, Safety, Balance, Gait, Transfer, Bed Mobility Treatment/Plan Treatment Plan: Continue Plan of Care Treatment Plan: Bed Mobility, Education, Functional Activity Matthew, Functional Strength, Group Therapy, Gait, Safety, Therapeutic Exercise, Transfers Treatment Duration: Sep 21, 2017 Frequency: At least 5 of 7 days/Wk (IRF) Estimated Hrs Per Day: 1.5 hours per day Patient and/or Family Agrees t: Yes Safety Risks/Education Patient Education: Gait Training, Transfer Techniques, Safety Issues Teaching Recipient: Patient Teaching Methods: Demonstration, Discussion Response to Teaching: Reinforcement Needed Discharge Recommendations Therapy D/C Recommendations: Physical Therapy Home Care Time/GCodes Time In: 920 Time Out: 1035 Total Billed Treatment Time: 75 Total Billed Treatment visit EVM 30 FA 30 EX 15 SHAQUILLE MAURICIO PT Aug 31, 2017 10:54
[2017-08-31] MEDS ORDERED: HYDROcodone/APAP 5 MG/325 MG (LORTAB) TAB PO PRN (11:00)
[2017-08-31] MEDS ORDERED: BISACODYL 5 MG (DULCOLAX) TABLET PO PRN (11:00)
[2017-08-31] MEDS ORDERED: oxyCODONE/APAP 5/325MG (PERCOCET 5) TABLET PO PRN (11:30)
[2017-08-31] MEDS: DICLOFENAC 1% GEL 100 GM (VOLTAREN) TUBE TOP SCH ×3 (13:22→21:27)
--- NOTE | 2017-08-31 13:26 | ST Cognitive Linguistic Eval ---
Speech Evaluation-General Medical Diagnosis Right hip fx Onset Date: Aug 28, 2017 Therapy Diagnosis Therapy Diagnosis: Cognitive Linguistic Skills WNL Precautions Precautions/Isolations: Standard Precautions Referral Referring Physician: Dr. Navarro Reason for Referral: Evaluation/Treatment Cognitive Evaluation Medical History Pertinent Medical History: GERD, HTN, Macular Degenertion Reviewed History: Yes Social History Current Living Status: Alone (good family support) Speech PLF-Current Status Prior Level of Function The patient denied prior challenges with speech, language, or cognition. Subjective The patient was seated upright in recliner upon entrance. The patient greeted the clinician and was agreeable to participation in the cognitive evaluation. Language Eval: Auditory Comprehends Simple Yes/No Ques: Functional Indent/Objects Multiple Boo: Functional Ident/Pics in Multiple Boo: Functional Follows 1-Step Commands: Functional Follows Complex Directions: Functional Follows General Conversations: Functional Language Eval: Verbal Language Completes Spontaneous Greeting: Functional Produces Auto, Serial Info: Functional Imitates Simple Words/Phrases: Functional Word Finding: Functional Requests Basic Needs: Functional States Basic Personal Info: Functional Expresses Complex Ideas: Functional Cognitive Patient Orientation The patient was independently oriented to name, location, month, year, and day of week. Objective Cognitive Domain Attention: WNL Memory: WNL Problem Solving: Functional Objective Impression The patient displayed cognitive linguistic skills WNL and appropriate for completion of ADL's. Communication/Social Cognition Comprehension: 6 Expression: 6 Social Interaction: 6 Problem Solvin Memory: 6 Speech Patient Assess Expression of Ideas/Wants: Expression (4) Understanding [place] Content: Understands (4) Brief Interview-Mental Status: Yes Repetition of Three Words: Three (3) Temporal Orientation: Year: Correct (3) Temporal Orientation: Month: Accurate within 5 days(2) Temporal Orientation: Day: Correct (1) Recall : Wear to say "Sock": Yes, no cue required (2) Recall : Color: Yes, no cue required (2) Recall : Bed: Yes, no cue required (2) Speech-Plan Treatment Plan Speech Therapy Treatment Plan: Discontinue ST Evaluation, only. Frequency: Modified Program (IRF) Estimated Hrs Per Day: Other Rehab Potential: Good Safety Risks/Education Teaching Recipient: Patient Teaching Methods: Discussion Response to Teaching: Verbalize Understanding Education Topics Provided: Results, Recommendations, Plan of Care Time Speech Therapy Time In: 12:20 Speech Therapy Time Out: 12:35 Total Billed Time: 15 Billed Treatment Time 1, [id number] EVERETT Aug 31, 2017 13:26
--- NOTE | 2017-08-31 13:42 | Occupational Therapy Eval ---
OT Evaluation-General/PLF Medical Diagnosis Admission Date Aug 31, 2017 at 09:20 Medical Diagnosis: Right hip fx Onset Date: Aug 28, 2017 Therapy Diagnosis Therapy Diagnosis: decr self care, decr funct mobility, decr act mathew, weakness Height/Weight Height (Feet): 5 Height (Inches): 3.00 Weight (Pounds): 151 Weight (Ounces): 6.0 Precautions Precautions/Isolations: Standard Precautions Weight Bear Status Weight Bearing Restriction: Weight Bearing/Tolerated Location Restriction: R LE Referral Physician: Ramon Referral Reason: Evaluation/Treatment Medical History Pertinent Medical History: GERD, HTN, Macular Degenertion Additional Medical History Depression. Pt had R TKA 06/08 and was doing OP PT. Urinary incontinence Current History Pt fell on porch, with R hip pain. ORIF R hip on 08-29-17 Reviewed History: Yes Social History Home: Single Level Current Living Status: Alone (good family support) Entry Into Home: Stairs With Railing Steps Into Home: 4 ADL-Prior Level of Function ADL PLOF Comments Pt reported that she was independent with all basic self care needs prior to fall. She still drives and is an active community volunteer. 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 She has been walking with a FWW due to TKA, DME/Equipment: Bath Chair, Tub/Shower, Toilet/Riser OT Current Status Subjective Pt seen in room, up in bed, agreeable to OT. Family members present. pt reported pain 0/10 but said it gets to 8/10 when she is up out of bed. Pt frustrated because she is not doing as well as she thinks she should Appearance Alert, cooperative, pale and light-headed at times Mental Status/Objective Patient Orientation: Person, Place, Time, Situation Current Glasses/Contacts: Yes Hearing Aids: No Dentures/Partials: Yes Hand Dominance: Right Upper Extremity ROM Grossly WFL bilat Upper Extremity Sensation No problems per pt report Upper Extremity Strength Grossly 4/5 bilat Edema: none observed ADL-Treatment ADL-Current Pt declined brushing teeth due to nausea and light headedness. Pt was going to shower but decided to sponge bathe today due to not feeling well and will shower tomorrow Functional [place] Measure 0=Not Assessed/NA 4=Minimal Assistance 1=Total Assistance 5=Supervision or Setup 2=Maximal Assistance 6=Modified [place] 3=Moderate Assistance 7=Complete IndependenceIRFPAI Quality Coding Scale 6 Independent with activity with or without an assistive device 5 Patient requires set up or clean up by helper. Patient completes activity by themselves 4 Supervision or touching assist (CGA). [place] provide cues , steadying assist 3 The helper provides less than half the effort to complete the activity 2 The helper provides more than half the effort to complete the activity 1 Dependent. The helper does all the effort to complete an activity 7 Patient refused to complete or attempt activity 9 The patient did not perform the activity before the current illness or injury 88 Not attempted due to Medical conditions or safety concerns Eating (FIM): 6 (Pt has been able to open packages and get food to her mouth. Has dentures and there are foods she cannot eat without her teeth) Eating (QC): 6 Bathing (FIM): 4 (Sponge bath. Help to reach feet. SBA when standing) Shower/Bathe Self (QC): 3 Upper Body Dressing (FIM): 5 (setup. Chose not to wear a bra) Upper Body Dressing (QC): 5 Lower Body Dressing (FIM): 3 (Help to get slipper socks off and on. Setup for DB hose. Difficulty getting pants over feet but she was able to do it. CGA when standing to pull pants up. FWW) Lower Body Dressing (QC): 3 On/Off Footwear (QC): 1 Toileting (FIM): 4 (CGA when managing clothing and hygiene. BSC over toilet. FWW, grab bar. Pt had loose stool - nursing notified) Toileting Hygiene (QC): 4 Toilet/Commode Transfer (FIM): 4 (CGA getting on and off BSC over toilet. Grab bar, FWW. Cues for hand placement) Toilet Transfer (QC): 4 Pt left up in recliner, all needs met. TEDs on Education OT Patient Education: Modified ADL techniques, Purpose of tx/functional activities, Rehab process, Safety issues, Transfer techniques Teaching Recipient: Patient Teaching Methods: Demonstration, Discussion Response to Teaching: Verbalize Understanding, Return Demonstration, Reinforcement Needed OT Short Term Goals Short Term Goals Time Frame: Sep 07, 2017 Bathing(FIM): 5 Lower Body Dressing(FIM): 4 Toileting(FIM): 5 Toilet/Commode Transfer(FIM): 5 Additional Short Term Goals: 1-Demonstrate ADL Tasks, 2-Verbalize Understanding , 3-ImproveStrength/Matthew 1=Demonstrate adherence to instructed precautions during ADL tasks. 2=Patient will verbalize/demonstrate understanding of assistive devices/ modifications for ADL. 3=Patient will improve strength/tolerance for activity to enable patient to perform ADL's. OT Retirement Goals Back Strip Machine Operator Goals Time Frame: Sep 21, 2017 Eating (FIM): 6 Eating (QC): 6 Groomin Oral Hygiene (QC): 6 Bathing(FIM): 6 Shower/Bathe Self (QC): 6 Upper Body Dressing(FIM): 6 Upper Body Dressing (QC): 6 Lower Body Dressing(FIM): 6 Lower Body Dressing (QC): 6 On/Off Footwear (QC): 6 Toileting(FIM): 6 Toileting Hygiene (QC): 6 Toilet/Commode Transfer(FIM): 6 Toilet/Commode Transfer (QC): 6 Tub Transfer(FIM): 6 (or shower) Shower Transfer(FIM): 6 (or tub) Additional Goals: 1-Demonstrate ADL Tasks, 2-Verbalize Understanding, 3- ImproveStrength/Matthew 1=Demonstrate adherence to instructed precautions during ADL tasks. 2=Patient will verbalize/demonstrate understanding of assistive devices/ modifications for ADL. 3=Patient will improve strength/tolerance for activity to enable patient to perform ADL's. OT Education/Plan Problem List/Assessment Assessment: Decreased Activ Tolerance, Decreased UE Strength, Dependent Transfers, Impaired Self-Care Skills Pt would benefit from skilled OT to increase her independence in basic self care to allow her to safely return to her home and to decrease caregiver burden. Discharge Recommendations Plan/Recommendations: Continue POC Therapy D/C Recommendations: Occupational Therapy Home Care Treatment Plan/Plan of Care Treatment,Training & Education: Yes Patient would benefit from OT for education, treatment and training to promote independence in ADL's, mobility, safety and/or upper extremity function for ADL' s. Plan of Care: ADL Retraining, Functional Mobility, Group Exercise/Act as Ind ( education, exercise, funct activity, act tolerance, socialization), UE Funct Exercise/Act, UE Neuromus Re-Ed/Coord Treatment Duration: Sep 21, 2017 Frequency: At least 5 of 7 days/Wk (IRF) Estimated Hrs Per Day: 1.5 hours per day Rehab Potential: Good Time/GCodes Start Time: 11:00 Stop Time: 11:55 Total Time Billed (hr/min): 55 Billed Treatment Time visit, evaluation moderate intensity 15 minutes, ADL 40 minutes ELE LABOY OT Aug 31, 2017 13:42
[2017-08-31 13:57] VITALS: BP 107/72
--- NOTE | 2017-08-31 14:01 | Physical Therapy Daily Note ---
PT Daily Note-Current Subjective Patient continues to c/o nausea and diarrhea. RN is aware. Pain Numeric Pain Scale: 8 Location: Right Location Body Site: Hip Pain Description: Acute Mental Status Patient Orientation: Normal For Age Transfers Functional [place] Measure 0=Not Assessed/NA 4=Minimal Assistance 1=Total Assistance 5=Supervision or Setup 2=Maximal Assistance 6=Modified [place] 3=Moderate Assistance 7=Complete IndependenceIRFPAI Quality Coding Scale 6 Independent with activity with or without an assistive device 5 Patient requires set up or clean up by helper. Patient completes activity by themselves 4 Supervision or touching assist (CGA). [place] provide cues , steadying assist 3 The helper provides less than half the effort to complete the activity 2 The helper provides more than half the effort to complete the activity 1 Dependent. The helper does all the effort to complete an activity 7 Patient refused to complete or attempt activity 9 The patient did not perform the activity before the current illness or injury 88 Not attempted due to Medical conditions or safety concerns Transfers (B, C, W/C) (FIM): 4 Scootin Sit to/from Stand: 4 Sit to Stand (QC): 4 CGA for safety due to right LE pain and patient c/o dizziness and nausea Weight Bearing Right Lower Extremity: Right Weight Bearing/Tolerated Left Lower Extremity: Left Full Weight Bearing Gait Training Does the Patient Walk?: Yes Gait (FIM): 4 Distance (FIM): 3=150 ft Distance: 150'x 2 Walk 10 feet (QC): 4 Walk 50 ft with 2 Turns(QC): 4 Walk 150 ft (QC): 4 Gait Level of Assist: 4 Gait Assistive Device: FWW antalgic, right knee flexed posture with gait training Exercises Seated Therapy Exercises: Ankle pumps, Long arc quads Seated Reps: 15 Assessment Patient is a very active individual and voices frustration with inability to " do this herself". PT reassured her she will progress and return to home. Patient is limited due to nausea and pain. PT Short Term Goals Short Term Goals Time Frame: Sep 07, 2017 Transfers (B,C,W/C) (FIM): 4 Gait (FIM): 4 Distance (FIM): 3=150 ft Gait Assistive Device: FWW PT Custodial Goals Custodial Goals PT Clinical Nurse Goals Time Frame: Sep 21, 2017 Transfers (B,C,W/C) (FIM): 6 Sit to Lying (QC): 6 Lying-Sitting on Side/Bed(QC): 6 Sit to Stand (QC): 6 Roll Left to Right (QC): 6 Chair/Xlw-ql-Eckys Xfer(QC): 6 Car Transfer (QC): 6 Does the Patient Walk: Yes Gait (FIM): 6 Gait distance (FIM): 3=150 ft Walk 10 feet (QC): 6 Walk 10ft-Uneven Surface(QC): 6 Walk 50ft with 2 Turns (QC): 6 Walk 150 ft (QC): 6 Gait Assistive Device: FWW Does the Pt use WC or Scooter?: No Stairs (FIM): 5 # of Steps: 8 1 Step (curb) (QC): 6 4 Steps (QC): 6 12 Steps (QC): 88 Picking up an Object (QC): 5 (mod indep) PT Plan Treatment/Plan Treatment Plan: Continue Plan of Care Treatment Plan: Bed Mobility, Education, Functional Activity Matthew, Functional Strength, Group Therapy, Gait, Safety, Therapeutic Exercise, Transfers Treatment Duration: Sep 21, 2017 Frequency: At least 5 of 7 days/Wk (IRF) Estimated Hrs Per Day: 1.5 hours per day Patient and/or Family Agrees t: Yes Time/GCodes Time In: 1330 Time Out: 1350 Total Billed Treatment Time: 20 Total Billed Treatment 1 visit GT 20 min STACY TRIPP PT Aug 31, 2017 14:01
--- NOTE | 2017-08-31 15:22 | Occupational Ther Daily Note ---
OT Current Status-Daily Note Subjective Pt was in room in bed, crying because of R hip pain. Nursing was calling physician to get additional meds but that will take time, Appearance Tearful Mental Status/Objective Functional [place] Measure 0=Not Assessed/NA 4=Minimal Assistance 1=Total Assistance 5=Supervision or Setup 2=Maximal Assistance 6=Modified [place] 3=Moderate Assistance 7=Complete [place] ADL-Treatment Functional [place] Measure 0=Not Assessed/NA 4=Minimal Assistance 1=Total Assistance 5=Supervision or Setup 2=Maximal Assistance 6=Modified [place] 3=Moderate Assistance 7=Complete IndependenceIRFPAI Quality Coding Scale 6 Independent with activity with or without an assistive device 5 Patient requires set up or clean up by helper. Patient completes activity by themselves 4 Supervision or touching assist (CGA). [place] provide cues , steadying assist 3 The helper provides less than half the effort to complete the activity 2 The helper provides more than half the effort to complete the activity 1 Dependent. The helper does all the effort to complete an activity 7 Patient refused to complete or attempt activity 9 The patient did not perform the activity before the current illness or injury 88 Not attempted due to Medical conditions or safety concerns Other Treatment Pt had an ice pack on the lateral side of her right thigh and was given a second one to place on anterior hip. OT helped patient with deep breathing and relaxation techniques to help manage pain. By end of tx, pt was not crying and was breathing normally, eyes closed. Pt left up in bed, all needs met. Education OT Patient Education: Other Teaching Recipient: Patient OT Short Term Goals Short Term Goals Time Frame: Sep 07, 2017 Bathing(FIM): 5 Lower Body Dressing(FIM): 4 Toileting(FIM): 5 Toilet/Commode Transfer(FIM): 5 Additional Short Term Goals: 1-Demonstrate ADL Tasks, 2-Verbalize Understanding , 3-ImproveStrength/Matthew 1=Demonstrate adherence to instructed precautions during ADL tasks. 2=Patient will verbalize/demonstrate understanding of assistive devices/ modifications for ADL. 3=Patient will improve strength/tolerance for activity to enable patient to perform ADL's. OT [facility] Goals [place] Finisher Goals Time Frame: Sep 21, 2017 Eating (FIM): 6 Eating (QC): 6 Groomin Oral Hygiene (QC): 6 Bathing(FIM): 6 Shower/Bathe Self (QC): 6 Upper Body Dressing(FIM): 6 Upper Body Dressing (QC): 6 Lower Body Dressing(FIM): 6 Lower Body Dressing (QC): 6 On/Off Footwear (QC): 6 Toileting(FIM): 6 Toileting Hygiene (QC): 6 Toilet/Commode Transfer(FIM): 6 Toilet/Commode Transfer (QC): 6 Tub Transfer(FIM): 6 (or shower) Shower Transfer(FIM): 6 (or tub) Additional Goals: 1-Demonstrate ADL Tasks, 2-Verbalize Understanding, 3- ImproveStrength/Matthew 1=Demonstrate adherence to instructed precautions during ADL tasks. 2=Patient will verbalize/demonstrate understanding of assistive devices/ modifications for ADL. 3=Patient will improve strength/tolerance for activity to enable patient to perform ADL's. OT Education/Plan Problem List/Assessment Pt would benefit from skilled OT to increase her independence in basic self care to allow her to safely return to her home and to decrease caregiver burden. Discharge Recommendations Plan/Recommendations: Continue POC Treatment Plan/Plan of Care Patient would benefit from OT for education, treatment and training to promote independence in ADL's, mobility, safety and/or upper extremity function for ADL' s. Plan of Care: ADL Retraining, Functional Mobility, Group Exercise/Act as Ind ( education, exercise, funct activity, act tolerance, socialization), UE Funct Exercise/Act, UE Neuromus Re-Ed/Coord Treatment Duration: Sep 21, 2017 Frequency: At least 5 of 7 days/Wk (IRF) Estimated Hrs Per Day: 1.5 hours per day Rehab Potential: Good Time/GCodes Start Time: 15:00 Stop Time: 15:15 Total Time Billed (hr/min): 15 Billed Treatment Time visit, 15 minutes functional activity ELE LABOY OT Aug 31, 2017 15:22
[2017-08-31] MEDS: oxyCODONE/APAP 5/325MG (PERCOCET 5) TABLET PO PRN ×2 (17:24→21:28)
[2017-08-31 18:20] VITALS: BP 123/77
--- NOTE | 2017-08-31 19:31 | PM&R Post Admission Assessment ---
Post Admission Physician Asses The preadmission screen agrees with the post admission assessment that the patient is a good candidate for inpatient rehabilitation. The patient will have a comprehensive program of inpatient rehabilitation with a goal of maximizing level of functional independence prior to discharge home with family and HHC. The patient will have PT/OT ninety minutes per day, each discipline, five days a week for 2 weeks for gait, strengthening, conditioning , balance, ADLs, any patient/family/caregiver training as necessary. Speech therapy to do cognitive assessment and treat as indicated. Rehabilitation nursing to assist with bowel, bladder, skin, wound care, medication administration, pain management. Measurement Specialist to assist with discharge planning, community reentry. SCD's for DVT prophylaxis. She appears to be well motivated to participate in three hours of therapy a day. She should be able to tolerate three hours of therapy a day from a medical and surgical standpoint. She should benefit from the three hours of therapy a day. She has a reasonable discharge plan, reasonable discharge rehabilitation goals and a supportive family. She has various comorbidities that need to be closely monitored with medications and treatments adjusted on a daily basis as needed. These include: HTN hypothyroidism anxiety GERD Depression Thoracic aortic aneurysm Barriers to discharge for this patient who had been independent prior to this are for her to be modified independent to supervision for ADLs and mobility skills prior to discharge home with family and HHC, so as to lessen the burden of the caregivers. Risks for this patient include: 1. Fall 2. Fracture 3. DVT 4. Pulmonary embolism 5. Wound infection 6. Skin breakdown 7. Contractures 8. Poorly controlled pain 9. Urinary retention 10. UTI 11. Respiratory infection 12. Aspiration 13.Poorly controlled HTN Estimated Length of Stay: 14 days [facility] CODE 08.11 Etiologic DX: RT HIP FRX Prognosis: Rehab prognosis appears good for goal of discharge home with family and HHC modified independent to supervision for ADLs and mobility skills.The patient had been Independent prior to this fall. ANTONELLA RAM MD Aug 31, 2017 19:31
[2017-08-31] MEDS ORDERED: DOCUSATE SODIUM 100 MG (COLACE) CAP PO SCH (21:00)
[2017-08-31] MEDS ORDERED: PATIENT'S OWN MED (RX USE ONLY) OU SCH (21:00)
[2017-08-31] MEDS: SENNA W/DOCUSATE (SENOKOT S) TABLET PO SCH (21:28)
[2017-08-31] MEDS: ASPIRIN E.C. 325 MG (ECOTRIN) TABLET PO SCH (21:28)
--- NOTE | 2017-09-01 00:41 | HISTORY AND PHYSICAL ---
DATE OF SERVICE: CHIEF COMPLAINT: Difficulty with walking. HISTORY OF PRESENT ILLNESS: The patient is an 86-year-old retired female, who suffered a fall at home on 08/28/2017. She landed on her right hip. She was taken to the ED. X-ray of the pelvis and right hip revealed a mildly comminuted angulated intra-articular fracture of the proximal right femur. The patient was noted to be elevated at 189/96. Dr. Law, cardiology was consulted. Medications were adjusted and the patient underwent a long trochanteric femoral nailing of the right hip on 08/29/[address] Abraham. The patient was followed in the perioperative period as well by Dr. Dawkins, PCP. Home medications were resumed on 08/29. Blood pressure was controlled. She was utilizing Percocet for pain control. Therapies were begun and she was felt to be appropriate for inpatient rehabilitation. She had been modified independent with a walker prior to this as she had had a right total knee replacement this past May. 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 Currently, she is modified independent for eating, min assist for bathing, set up for upper body dressing, mod assist for lower body dressing, min assist with toileting and toilet transfers. She is min assist for ambulation with a wheeled walker for short distances. She is min to mod assist for transfers. She is complaining of significant pain and requesting something other than one Percocet for pain control. PAST MEDICAL HISTORY: Osteoarthritis, hypertension, hypercholesterolemia, GERD, depression, thoracic aortic aneurysm, hyperlipidemia, macular degeneration, dry eye syndrome, takes Restasis, urinary incontinence, hypothyroidism, on replacement. PAST SURGICAL HISTORY: As per above and a right total knee replacement May [address] Samayoa. ALLERGIES: No known medication allergies. FAMILY HISTORY: Thoricic aortic aneursym. SOCIAL HISTORY: Essentially as per above. She lives in [place], [place]. She is a . She has three supportive children nearby. REVIEW OF SYSTEMS: A 10-point review of systems significant for a right hip pain and anxiety. MEDICATIONS: Ziac 5/6.25 one tablet p.o. daily, Zoloft 50 mg p.o. daily, Zetia 10 mg p.o. daily, Zyrtec 10 mg p.o. daily, PreserVision 1 tablet p.o. daily, Restasis 1 drop in eyes daily, Protonix 40 mg p.o. daily, levothyroxine 100 mcg p.o. daily, ASA 325 mg p.o. b.i.d. for DVT prophylaxis. Senokot-S one tablet p.o. b.i.d., Percocet generic 5/325 one to two tablets p.o. q.4 hours p.r.n. moderate pain, tramadol 50 mg p.o. t.i.d. p.r.n. breakthrough pain, Voltaren gel apply topically to affected area q.i.d., the patient is currently refusing. PHYSICAL EXAMINATION: GENERAL: Significant for a female appearing her stated age, lying in bed, no acute distress. VITAL SIGNS: She is afebrile, pulse is 80, respirations are 18, blood pressure 123/77, O2 sat 96% on room air. HEENT: Vision, speech, hearing grossly intact. No oral lesions noted. NECK: Supple without mass. HEART: Regular rhythm. CHEST: Clear. ABDOMEN: Soft, nontender and bowel sounds present. EXTREMITIES: No leg edema and no calf tenderness. MUSCULOSKELETAL: The patient has functional active range of motion of both upper extremities and left lower extremity, right lower extremity limited due to pain. She has a well healed surgical scar over the right knee. She has an incision with dressing in place over the right hip. NEUROLOGIC: Sensation is grossly intact to touch. Cognition, speech therapy has evaluated and found her to be functional and signed off. Strength left lower extremity within functional limits, right lower extremity grossly 3/5 throughout. Strength both upper limbs 4/5. She is right-handed. IMPRESSION: 1. Ambulatory dysfunction secondary to proximal right femur fracture status post long trochanteric femoral nailing of the right hip by Dr. Abraham 08/29/2017. 2. Poorly controlled hypertension, now better controlled with meds adjusted. 3. Postop respiratory insufficiency now weaned from O2. 4. Gastroesophageal reflux disease on meds. 5. Depression, on medications. 6. Thoracic aortic aneurysm being followed by [facility]. 7. Hyperlipidemia, on meds. 8. Macular degeneration on eyedrops. 9. Osteoarthritis, status post right total knee replacement by Dr. Samayoa May 2017. 10. Incontinence-wears pad. 11. Hypothyroidism, on replacement. PLAN: The patient will have a comprehensive program of inpatient orthopedic rehabilitation with goal of maximizing level of functional independence prior to discharge home with family and home health care. The patient will have PT, OT, 90 minutes per day each discipline for 2 weeks, 5 days a week for gait, strengthening, conditioning, balance, ADLs, any patient family caregiver training necessary and any adaptive equipment training necessary. Continue aspirin b.i.d. for DVT prophylaxis along with SCDs. Speech therapy to evaluate cognition signed off after finding her to be functional cognitively. Rehabilitation nursing to assist with bowel, bladder, skin, wound care, medication administration, pain management. environmental field services technician to assist with discharge planning, community reentry. Pain medication is adjusted with Percocet increased and tramadol added for enhanced pain relief.Follow up with Dr. Dawkins, PCP and Dr. Abraham and Dr. Ruchi matthews. Therapy with cardiac and fall precautions. ESTIMATED LENGTH OF STAY: 14 days. PROGNOSIS: Rehabilitation progress appears good for goal of discharging home with home health care and family modified independent to supervision for ADLs and mobility skills. DIET: Regular. CODE STATUS: Full code. Job ID: [id number] DocumentID: [id number] Dictated Date: 08/31/2017 19:46:22 Picking Table Worker Date: 09/01/2017 00:41:09 Dictated By: ANTONELLA RAM MD [facility]
[2017-09-01 02:00] VITALS: BP 133/79
[2017-09-01] MEDS: oxyCODONE/APAP 5/325MG (PERCOCET 5) TABLET PO PRN ×5 (03:45→21:01)
[2017-09-01] MEDS: PANTOPRAZOLE 40 MG (PROTONIX) TAB PO SCH (06:20)
[2017-09-01] MEDS: LEVOTHYROXINE 100 MCG (LEVOTHROID) TAB PO SCH (06:20)
[2017-09-01] MEDS: MULTIVIT W/MINERALS TAB (THERAGRAN M) PO SCH (06:20)
[2017-09-01] MEDS: LORATADINE (CLARITIN) 10 MG TAB PO SCH (08:15)
[2017-09-01] MEDS: ASPIRIN E.C. 325 MG (ECOTRIN) TABLET PO SCH ×2 (08:15→21:01)
[2017-09-01] MEDS: SERTRALINE 50 MG (ZOLOFT) TABLET PO SCH (08:15)
[2017-09-01] MEDS: BISOPROLOL/HCTZ 5/6.25 MG (ZIAC) TAB PO SCH (08:15)
[2017-09-01] MEDS: eZETimibe 10 MG (ZETIA) TABLET PO SCH (08:17)
[2017-09-01] MEDS: DICLOFENAC 1% GEL 100 GM (VOLTAREN) TUBE TOP SCH ×4 (09:00→21:02)
--- NOTE | 2017-09-01 09:01 | Physical Therapy Daily Note ---
PT Daily Note-Current Subjective Pt. agrees to Rx. In bed and states she has no pain at this time but would like to have a pain pill in anticipation of therapy. Pt. later in Rx states she is dizzy and feels pressure on her chest as well as being very diaphoretic. Pain Numeric Pain Scale: 3 Location: Right Location Body Site: Hip Pain Description: Pressure Comment: Pt. also c/o chest discomfort and dizziness. BP taken in sitting at 102/55, Mental Status Patient Orientation: Normal For Age Transfers Functional [place] Measure 0=Not Assessed/NA 4=Minimal Assistance 1=Total Assistance 5=Supervision or Setup 2=Maximal Assistance 6=Modified [place] 3=Moderate Assistance 7=Complete IndependenceIRFPAI Quality Coding Scale 6 Independent with activity with or without an assistive device 5 Patient requires set up or clean up by helper. Patient completes activity by themselves 4 Supervision or touching assist (CGA). [place] provide cues , steadying assist 3 The helper provides less than half the effort to complete the activity 2 The helper provides more than half the effort to complete the activity 1 Dependent. The helper does all the effort to complete an activity 7 Patient refused to complete or attempt activity 9 The patient did not perform the activity before the current illness or injury 88 Not attempted due to Medical conditions or safety concerns Transfers (B, C, W/C) (FIM): 6 Scootin Rollin Supine to/from Sit: 6 Sit to/from Stand: 6 Bed to/from Chair: 6 Weight Bearing Right Lower Extremity: Right Weight Bearing/Tolerated Left Lower Extremity: Left Full Weight Bearing Gait Training Does the Patient Walk?: Yes Gait (FIM): 5 Distance (FIM): 3=150 ft (165x1) Gait Level of Assist: 5 Gait Persons Needed: 1 Gait Assistive Device: FWW flexed posture and skilled verbal instruction for right foot placement as pt adducts a little Stair Training Stair Training: Handrails/: 2 handrails Stairs (FIM): 2 #of Steps: 4 Stairs: Pattern: Step to Level of Assist: 4 instructions for sequence Exercises Supine Ex: Ankle pumps, Quad Set, Rolling, Glut sets, Heel Slides, Short Arc Quads, Scooting, Straight leg raise, Hip abd/add Supine Reps: 15 Standing: Heel/toe raises, Marching Standing Reps: 12 Treatments Pt. toileted in room managing pants and clean up and TRF indep. just after stair training and during standing therex pt. c/o dizziness, became sweaty and stated she had chest pressure. Nursing was called to assess. Pt. was returned to room via w/c . BP 102/55,O2 sats 95% Assessment Current Status: Good Progress dizziness and chest pressure limited Rx PT Short Term Goals Short Term Goals Time Frame: Sep 07, 2017 Gait (FIM): 4 Distance (FIM): 3=150 ft Gait Assistive Device: FWW PT Intermediate Goals Intermediate Goals PT Intermediate Goals Time Frame: Sep 21, 2017 Transfers (B,C,W/C) (FIM): 6 Sit to Lying (QC): 6 Lying-Sitting on Side/Bed(QC): 6 Sit to Stand (QC): 6 Roll Left to Right (QC): 6 Chair/Jpy-lb-Mnyry Xfer(QC): 6 Car Transfer (QC): 6 Does the Patient Walk: Yes Gait (FIM): 6 Gait distance (FIM): 3=150 ft Walk 10 feet (QC): 6 Walk 10ft-Uneven Surface(QC): 6 Walk 50ft with 2 Turns (QC): 6 Walk 150 ft (QC): 6 Gait Assistive Device: FWW Does the Pt use WC or Scooter?: No Stairs (FIM): 5 # of Steps: 8 1 Step (curb) (QC): 6 4 Steps (QC): 6 12 Steps (QC): 88 Picking up an Object (QC): 5 (mod indep) PT Plan Treatment/Plan Treatment Plan: Continue Plan of Care Treatment Plan: Bed Mobility, Education, Functional Activity Matthew, Functional Strength, Group Therapy, Gait, Safety, Therapeutic Exercise, Transfers Treatment Duration: Sep 21, 2017 Frequency: At least 5 of 7 days/Wk (IRF) Estimated Hrs Per Day: 1.5 hours per day Patient and/or Family Agrees t: Yes Safety Risks/Education Patient Education: Gait Training, Transfer Techniques, Steps Teaching Recipient: Patient Teaching Methods: Demonstration, Discussion Response to Teaching: Verbalize Understanding, Return Demonstration, Reinforcement Needed Time/GCodes Time In: 800 Time Out: 900 Total Billed Treatment Time: 60 Total Billed Treatment 1,FA30m,EX15m,GT15m G Codes Necessary: No JILLIAN COOPER DIAGNOSTIC SALES SPECIALIST Sep 01, 2017 09:01
--- OUTSIDE RECORDS SUMMARY | 2017-09-01 10:24 | XMS REPORT | Continuity of Care Document ---
Author Author [facility] Organization [facility] Address Unknown Phone Unavailable Allergies Active Description Code Type Severity Reaction Onset Reported/Identified Relationship to Patient Clinical Status Yes No Known Drug Allergies [id number] Drug Allergy Unknown N/A 08/28/2017 Medications There is no data. Problems Date [...] MAMMOGRAM FOR MALIGNANT NE 04/02/2017 FARA CARBAJAL EXECUTIVE CHAIRMAN OF THE BOARD Ot Z12.31 ENCNTR SCREEN MAMMOGRAM FOR MALIGNANT NE 04/27/2017 FARA CARBAJAL EXECUTIVE CHAIRMAN OF THE BOARD Ot Z12.31 ENCNTR SCREEN MAMMOGRAM FOR MALIGNANT NE 07/05/2017 Ot V76.12 OTH SCREEN MAMMO-MALIGN NEOPLASM OF JESE 07/05/2017 VIRGINIA MORRIS, BARBER Lowe Ot V76.12 OTH SCREEN MAMMO-MALIGN NEOPLASM OF JESE 07/05/2017 Ot V76.12 OTH SCREEN MAMMO-MALIGN NEOPLASM OF JESE 07/05/2017 GENNA PORRAS MD Ot Z12.31 ENCNTR SCREEN MAMMOGRAM FOR MALIGNANT NE 07/05/2017 FARA CARBAJAL EXECUTIVE CHAIRMAN OF THE BOARD Ot Z12.31 ENCNTR SCREEN MAMMOGRAM FOR MALIGNANT [...] plasma albumin measurement (mass/volume) 3.9 g/dL 3.2-4.5 Complete urinalysis with reflex to culture - 08/28/17 22:05 Urine color determination YELLOW NRG Urine clarity determination CLEAR NRG Urine pH measurement by test strip 6 5-9 Specific gravity of urine by test strip 1.015 1.016- 1.022 Urine protein assay by test strip, semi-quantitative 1+ NEGATIVE Urine glucose detection by automated test strip NEGATIVE NEGATIVE Erythrocytes detection in urine sediment by light microscopy 1+ NEGATIVE Urine ketones detection by automated test strip 1+ NEGATIVE Urine nitrite detection by test strip NEGATIVE NEGATIVE Urine total bilirubin detection by test strip NEGATIVE NEGATIVE Urine urobilinogen measurement by automated test strip (mass/volume) NORMAL NORMAL Urine leukocyte esterase detection by dipstick NEGATIVE NEGATIVE Automated urine sediment erythrocyte count by microscopy (number/high power field) [HPF] NRG Automated urine sediment leukocyte count by microscopy (number/high power field ) NONE NRG Bacteria detection in urine sediment by light microscopy NONE NRG Crystals detection in urine sediment by light microscopy NONE NRG Casts detection in urine sediment by light microscopy NONE NRG Mucus detection in urine sediment by light microscopy SMALL NRG Complete urinalysis with reflex to culture NO NRG Automated blood complete blood count (hemogram) panel - 08/30/17 05:23 Blood leukocytes automated count (number/volume) 5.8 10*3/uL 4.3-11.0 Blood erythrocytes automated count (number/volume) 2.97 10*6/uL 4.35-5.85 Venous blood hemoglobin measurement (mass/volume) 8.8 g/dL 11.5-16.0 Blood hematocrit (volume fraction) 30 % 35-52 Automated erythrocyte mean corpuscular volume 101 [foz_us] 80-99 Automated erythrocyte mean corpuscular hemoglobin (mass per erythrocyte) 30 pg 25-34 Automated erythrocyte mean corpuscular hemoglobin concentration measurement ( mass/volume) 30 g/dL 32-36 Automated erythrocyte distribution width ratio 12.0 % 10.0-14.5 Automated blood platelet count (count/volume) 156 10*3/uL 130-400 Automated blood platelet mean volume measurement 9.9 [foz_us] 7.4-10.4 Comprehensive metabolic panel - 08/30/17 05:23 Serum or plasma sodium measurement (moles/volume) 139 mmol/L 135-145 Serum or plasma potassium measurement (moles/volume) 4.2 mmol/L 3.6-5.0 Serum or plasma chloride measurement (moles/volume) 106 mmol/L 98-107 Carbon dioxide 22 mmol/L 21-32 Serum or plasma anion gap determination (moles/volume) 11 mmol/L 5-14 Serum or plasma urea nitrogen measurement (mass/volume) 16 mg/dL 7-18 Serum or plasma creatinine measurement (mass/volume) 0.85 mg/dL 0.60-1.30 Serum or plasma urea nitrogen/creatinine mass ratio 19 NRG Serum or plasma creatinine measurement with calculation of estimated glomerular filtration rate > NRG Serum or plasma glucose measurement (mass/volume) 122 mg/dL 70-105 Serum or plasma calcium measurement (mass/volume) 8.2 mg/dL 8.5-10.1 Serum or plasma total bilirubin measurement (mass/volume) 0.4 mg/dL 0.1-1.0 Serum or plasma alkaline phosphatase measurement (enzymatic activity/volume) 49 U/L 40-136 Serum or plasma aspartate aminotransferase measurement (enzymatic activity/ volume) 17 U/L 5-34 Serum or plasma alanine aminotransferase measurement (enzymatic activity/volume ) 9 U/L 0-55 Serum or plasma protein measurement (mass/volume) 5.5 g/dL 6.4-8.2 Serum or plasma albumin measurement (mass/volume) 2.9 g/dL 3.2-4.5 Automated blood complete blood count (hemogram) panel - 08/31/17 06:22 Blood leukocytes automated count (number/volume) 6.4 10*3/uL 4.3-11.0 Blood erythrocytes automated count (number/volume) 2.68 10*6/uL 4.35-5.85 Venous blood hemoglobin measurement (mass/volume) 8.3 g/dL 11.5-16.0 Blood hematocrit (volume fraction) 25 % 35-52 Automated erythrocyte mean corpuscular volume 94 [foz_us] 80-99 Automated erythrocyte mean corpuscular hemoglobin (mass per erythrocyte) 31 pg 25-34 Automated erythrocyte mean corpuscular hemoglobin concentration measurement ( mass/volume) 33 g/dL 32-36 Automated erythrocyte distribution width ratio 12.1 % 10.0-14.5 Automated blood platelet count (count/volume) 139 10*3/uL 130-400 Automated blood platelet mean volume measurement 11.0 [foz_us] 7.4-10.4 Comprehensive metabolic panel - 08/31/17 06:22 Serum or plasma sodium measurement (moles/volume) 138 mmol/L 135-145 Serum or plasma potassium measurement (moles/volume) 3.7 mmol/L 3.6-5.0 Serum or plasma chloride measurement (moles/volume) 108 mmol/L 98-107 Carbon dioxide 25 mmol/L 21-32 Serum or plasma anion gap determination (moles/volume) 5 mmol/L 5-14 Serum or plasma urea nitrogen measurement (mass/volume) 16 mg/dL 7-18 Serum or plasma creatinine measurement (mass/volume) 0.89 mg/dL 0.60-1.30 Serum or plasma urea nitrogen/creatinine mass ratio 18 NRG Serum or plasma creatinine measurement with calculation of estimated glomerular filtration rate 60 NRG Serum or plasma glucose measurement (mass/volume) 85 mg/dL 70-105 Serum or plasma calcium measurement (mass/volume) 8.3 mg/dL 8.5-10.1 Serum or plasma total bilirubin measurement (mass/volume) 0.3 mg/dL 0.1-1.0 Serum or plasma alkaline phosphatase measurement (enzymatic activity/volume) 39 U/L 40-136 Serum or plasma aspartate aminotransferase measurement (enzymatic activity/ volume) 17 U/L 5-34 Serum or plasma alanine aminotransferase measurement (enzymatic activity/volume ) < U/L 0-55 Serum or plasma protein measurement (mass/volume) 5.2 g/dL 6.4-8.2 Serum or plasma albumin measurement (mass/volume) 2.9 g/dL 3.2-4.5 Serum or plasma troponin i.cardiac measurement (mass/volume) - 09/01/17 09:42 Serum or plasma troponin i.cardiac measurement (mass/volume) < ng/ mL <0.30 Encounters ACCT No. Visit Date/Time Discharge Status Pt. Type Provider Facility Loc./Unit Complaint [id number] 08/24/2017 08:40:00 08/24/2017 23:59:59 CLS Outpatient YAN DELGADO DO [facility] REHAB S/P R TKR [id number] 07/19/2017 14:06:00 07/19/2017 23:59:59 CLS Preadmit JOSE MARIA MD [facility] RAD LUNG MASS [id number] 07/02/2017 09:52:00 07/02/2017 23:59:59 CLS Outpatient GENNA PORRAS MD [facility] RAD LUNG NODULE [id number] 04/02/2017 09:49:00 04/02/2017 23:59:59 CLS Outpatient FARA CARBAJAL APRN [facility] RAD SCREENING Z12.31 [id number] 12/10/2015 10:09:00 12/10/2015 23:59:59 CLS Outpatient GENNA PORRAS MD [facility] RAD SCREENING [id number] 10/27/2015 10:30:00 10/27/2015 12:23:00 DIS Emergency ISAAC PIZARRO MD [facility] ER FEVER,CONGESTION,BACK PAIN [id number] 04/18/2015 09:51:00 04/18/2015 11:49:00 DIS Outpatient AYN DELGADO DO [facility] REHAB R ANKLE/HEEL [place]AG[place] DEFORMITY [id number] 10/18/2013 14:46:00 10/18/2013 23:59:59 CLS Outpatient VIRGINIA MORRIS, BARBER Lowe [facility] RAD SCREENING [id number] 08/31/2017 14:03:00 Document Registration [id number] 08/28/2017 17:58:00 ACT Inpatient GENNA PORRAS MD [facility] ICU R HIP FX,HTN [id number] 12/10/2015 10:08:00 Document Registration [id number] 10/19/2014 13:27:00 Document Registration [id number] 10/17/2012 10:31:00 Document Registration [id number] 12/28/2011 13:24:00 Document Registration [id number] 10/19/2011 14:42:00 Document Registration [id number] 10/12/2011 09:17:00 Document Registration [id number] 10/10/2010 08:42:00 Document Registration
--- NOTE | 2017-09-01 10:27 | Cardiology Progress Note ---
Subjective Date Seen by Provider: Sep 01, 2017 Time Seen by Provider: 09:10 Subjective/Events-last exam Patient sitting up in bed. Was called to patients room after reports of chest pain. Denies any active chest pain at this time. Reports chest pressure with activity at times. States has had intermittent pressure over the past year. Complains of fatigue, otherwise no other complaints. Review of Systems General: No Chills, No Night Sweats HEENT: No Head Aches, No Visual Changes Pulmonary: No Dyspnea, No Cough Cardiovascular: Chest Pain, No: Palpitations, Paroxysmal Noc. Dyspnea, Edema Gastrointestinal: No: Nausea, Vomiting, Abdominal Pain Genitourinary: No Dysuria, No Frequency Musculoskeletal: leg pain (right hip/leg), No: neck pain, back pain Neurological: No: Weakness, Numbness, Change in speech, Confusion Objective-Cardiology Exam Last Set of Vital Signs Vital Signs 09/01/17 02:00 Temp 98.0 Pulse 73 Resp 16 B/P (MAP) 133/79 (97) Pulse Ox 96 O2 Delivery Room Air Capillary Refill : I&O Intake and Output 09/01/17 00:00 Intake Total 500 ml Balance 500 ml Intake Oral 500 ml # Voids 3 # Bowel Movements 3 Daily Weight Change No General: Alert, Oriented X3, Cooperative HEENT: Atraumatic, PERRLA Neck: Supple, No JVD, No Thyromegaly Lungs: Clear to Auscultation, Normal Air Movement Heart: Regular Rate, Normal S1, Normal S2, No Murmurs Abdomen: Normal Bowel Sounds, Soft, No Tenderness, No Hepatosplenomegaly, No Masses Extremities: No Clubbing, No Cyanosis, No Edema, Normal Pulses, No Tenderness/ Swelling Skin: No Rashes, No Breakdown, No Significant Lesion Neuro: Normal Gait, Normal Speech, Strength at 5/5 X4 Ext, Normal Tone, Sensation Intact Psych/Mental Status: Mental Status NL, Mood NL A/P-Cardiology Admission Diagnosis Chest pain Right hip fracture Hypertension Thoracic aortic aneurysm Assessment/Plan Chest pain, non specific etiology- resolved. EKG reveals SR with no acute ST changes. Will continue to monitor. Right hip fracture, status post surgical repair done on 08/29/17. Recovering well. Hypertension, controlled. Continue to monitor BP/HR. Thoracic aortic aneurysm, seen and evaluated by Dr. Jhon Fong. Continue to monitor. Hyperlipidemia, maintained on Zetia. Monitored as outpatient History of urinary incontinence Family history of thoracic aneurysm Clinical Quality Measures DVT/VTE Risk/Contraindication: Risk Factor Score Per Nursin RFS Level Per Nursing on Admit: 4+=Very High ANUPAMA REBOLLEDO Sep 01, 2017 10:27
--- NOTE | 2017-09-01 11:07 | PM & R (SOAP) Progress Note ---
Subjective Time Seen by Provider: 08:00 Subjective/Events-last exam Patient was seen in her room this AM and doing well Pain control good with adjustement in meds Later in the morning the patient had an episode of CP and DR Dawkins requested cardiolog consult Apprerciate consult EKG OK.Patient adjusting well to unit otherwise Cardiac enzyme negative Review of Systems Musculoskeletal: leg pain Objective Exam Last Set of Vital Signs Vital Signs Date Time Temp Pulse Resp B/P (MAP) Pulse Ox O2 Delivery O2 Flow Rate FiO2 09/01/17 02:00 98.0 73 16 133/79 (97) 96 Room Air Capillary Refill : I&O Intake and Output 09/01/17 00:00 Intake Total 500 ml Balance 500 ml Intake Oral 500 ml # Voids 3 # Bowel Movements 3 Daily Weight Change No General: Alert, Oriented X3, Cooperative HEENT: Atraumatic, PERRLA Neck: Supple, No JVD, No Thyromegaly Lungs: Clear to Auscultation, Normal Air Movement Heart: Regular Rate, Normal S1, Normal S2, No Murmurs Abdomen: Normal Bowel Sounds, Soft, No Tenderness, No Hepatosplenomegaly, No Masses Extremities: No Clubbing, No Cyanosis, No Edema, Normal Pulses, No Tenderness/ Swelling Skin: No Rashes, No Breakdown, No Significant Lesion Neuro: Normal Gait, Normal Speech, Strength at 5/5 X4 Ext, Normal Tone, Sensation Intact Psych/Mental Status: Mental Status NL, Mood NL Results Lab Laboratory Tests 09/01/17 09:42: Troponin I < 0.30 Assessment/Plan Assessment Rt Hip frx s/p repair Chest pain nonspecific etiolgy cardiology following HTN controlled Thoracic Aortic Aneurysm stable HLP on Zetia Family HX of TAA Urinary Incontinenece wears pad Plan Continue PT/OT ST has signed off Team Conference to be held later today-see report for full functional update and POC and ELOS F/U with Dr Dawkins and Cardiology ANTONELLA Pride MD Sep 01, 2017 11:07
--- NOTE | 2017-09-01 14:26 | Cardiology Progress Note ---
Subjective Date Seen by Provider: Sep 01, 2017 Time Seen by Provider: 14:25 Subjective/Events-last exam Patient has been having recurrent episode of chest pain with exertion during physical therapy. Denied any palpitation, syncope or near syncopal episodes. Admit having shortness of breath Review of Systems General: No Chills, No Night Sweats, No Fatigue, No Malaise, No Appetite, No Other HEENT: No Head Aches, No Visual Changes, No Eye Pain, No Ear Pain, No Dysphasia , No Sinus Congestion, No Post Nasal Drip, No Sore Throat, No Other Pulmonary: Dyspnea, No Cough, No Pleuritic Chest Pain, No Other Cardiovascular: Chest Pain, No: Palpitations, Orthopnea, Paroxysmal Noc. Dyspnea, Edema, Lt Headedness, Other Objective-Cardiology Exam Last Set of Vital Signs Vital Signs 09/01/17 09/01/17 02:00 09:00 Temp 98.0 Pulse 73 Resp 16 B/P (MAP) 133/79 (97) Pulse Ox 96 O2 Delivery Room Air Capillary Refill : I&O Intake and Output 09/01/17 00:00 Intake Total 500 ml Balance 500 ml Intake Oral 500 ml # Voids 3 # Bowel Movements 3 Daily Weight Change No General: Alert, Oriented X3, Cooperative HEENT: Atraumatic, PERRLA Neck: Supple, No JVD, No Thyromegaly Lungs: Clear to Auscultation, Normal Air Movement Heart: Regular Rate, Normal S1, Normal S2, No Murmurs Abdomen: Normal Bowel Sounds, Soft, No Tenderness, No Hepatosplenomegaly, No Masses Extremities: No Clubbing, No Cyanosis, No Edema, Normal Pulses, No Tenderness/ Swelling Skin: No Rashes, No Breakdown, No Significant Lesion Neuro: Normal Gait, Normal Speech, Strength at 5/5 X4 Ext, Normal Tone, Sensation Intact Psych/Mental Status: Mental Status NL, Mood NL A/P-Cardiology Admission Diagnosis Chest pain Right hip fracture Hypertension Thoracic aortic aneurysm Assessment/Plan Chest pain, non specific etiology- resolved. EKG reveals SR with no acute ST changes. Planning to evaluate Lexiscan stress test. Dyspnea on exertion associated with chest pain. Management as above Right hip fracture, status post surgical repair done on 08/29/17. Recovering well. Hypertension, controlled. Continue to monitor BP/HR. Thoracic aortic aneurysm, seen and evaluated by Dr. Jhon Fong. Continue to monitor. Hyperlipidemia, maintained on Zetia. Monitored as outpatient History of urinary incontinence Family history of thoracic aneurysm Clinical Quality Measures DVT/VTE Risk/Contraindication: Risk Factor Score Per Nursin RFS Level Per Nursing on Admit: 4+=Very High JAYME VAIL MD Sep 01, 2017 14:26
--- NOTE | 2017-09-01 14:54 | Therapy Group Daily Note ---
Therapy Daily Group Note Patient Education Topic Other List Below (memory strategies ) Exercises LE Seated Exercise, UE Exercise Other/Notes Pt. participated in group PT OT session this date. Pt. introduced self and was social for group time in sharing ideas for memory strategies. Pts. were educated in the ARU process, its focus and goals etc. Pt. participated well in memory activity engaging other patients in a fun game of matching images etc. Pt. participated in U&L seated therex with some instruction. Pt to room after group , SBA to situate in bed. Call [place] and phone at hand. Start Time: 13:00 Stop Time: 14:20 Total Billed Treatment Time: 80 Total Billed Treatment 1,GRP JILLIAN COOPER ELECTRICAL SYSTEMS DESIGN ENGINEER Sep 01, 2017 14:54
--- NOTE | 2017-09-01 15:58 | Occupational Ther Daily Note ---
OT Current Status-Daily Note Subjective Pt. reports 4/10 pain in right hip. Nursing states that she is unable to have any more pain medication. Appearance Pt. is in bed. Declines showering but agrees to spongebathe. Mental Status/Objective Patient Orientation: Person, Place Functional [place] Measure 0=Not Assessed/NA 4=Minimal Assistance 1=Total Assistance 5=Supervision or Setup 2=Maximal Assistance 6=Modified [place] 3=Moderate Assistance 7=Complete [place] ADL-Treatment Functional [place] Measure 0=Not Assessed/NA 4=Minimal Assistance 1=Total Assistance 5=Supervision or Setup 2=Maximal Assistance 6=Modified [place] 3=Moderate Assistance 7=Complete IndependenceIRFPAI Quality Coding Scale 6 Independent with activity with or without an assistive device 5 Patient requires set up or clean up by helper. Patient completes activity by themselves 4 Supervision or touching assist (CGA). [place] provide cues , steadying assist 3 The helper provides less than half the effort to complete the activity 2 The helper provides more than half the effort to complete the activity 1 Dependent. The helper does all the effort to complete an activity 7 Patient refused to complete or attempt activity 9 The patient did not perform the activity before the current illness or injury 88 Not attempted due to Medical conditions or safety concerns Grooming (FIM): 5 (Set up to brush hair and teeth) Oral Hygiene (QC): 4 Bathing (FIM): 5 (Pt. is able to bathe all parts on side of bed with SBA.) Shower/Bathe Self (QC): 4 Upper Body (FIM): 5 Upper Body Dressing (QC): 4 Lower Body Dressing (FIM): 5 (SBA to don underwear, pants, socks, and shoes.) Lower Body Dressing (QC): 4 On/Off Footwear (QC): 4 Transfers (B, C, W/C) (FIM): 5 (SBA) Other Treatment Pt. completed ADLs seated on side of bed. After ADLs, states that she feels very tired. Pt. laid back down. BP taken laying down and is 170/82. Oxygen 92 %. HR 74. Pt. rests awhile, and then BP taken again. 147/82. Oxygen 98%. Pt. states that she has never had any BP issues before. OT issues pt. theraband and educates her on exercises to increase overall UE strength. Pt. is also asked about anything that she feels that she needs to practice while in the hospital, as to gain strength and independence. Pt. states that she feels like she knows how to do everything, as she has had a recent knee surgery and had to modify. Pt. also states that she has all needed equipment. Pt. states that she would like to go home soon. All needs are met in room. Pt. is made comfortable and ice packs are applied to right hip. Education OT Patient Education: Correct positioning, Exercise program, Modified ADL techniques, Progress toward Goal/Update tx plan, Purpose of tx/functional activities, Reviewed precautions, Rehab process, Transfer techniques Teaching Recipient: Patient Teaching Methods: Demonstration, Discussion Response to Teaching: Verbalize Understanding, Return Demonstration OT Short Term Goals Short Term Goals Time Frame: Sep 07, 2017 Bathing(FIM): 5 Lower Body Dressing(FIM): 4 Toileting(FIM): 5 Toilet/Commode Transfer(FIM): 5 Additional Short Term Goals: 1-Demonstrate ADL Tasks, 2-Verbalize Understanding , 3-ImproveStrength/Matthew 1=Demonstrate adherence to instructed precautions during ADL tasks. 2=Patient will verbalize/demonstrate understanding of assistive devices/ modifications for ADL. 3=Patient will improve strength/tolerance for activity to enable patient to perform ADL's. OT Alf Goals Alf Goals Time Frame: Sep 21, 2017 Eating (FIM): 6 Eating (QC): 6 Groomin Oral Hygiene (QC): 6 Bathing(FIM): 6 Shower/Bathe Self (QC): 6 Upper Body Dressing(FIM): 6 Upper Body Dressing (QC): 6 Lower Body Dressing(FIM): 6 Lower Body Dressing (QC): 6 On/Off Footwear (QC): 6 Toileting(FIM): 6 Toileting Hygiene (QC): 6 Toilet/Commode Transfer(FIM): 6 Toilet/Commode Transfer (QC): 6 Tub Transfer(FIM): 6 (or shower) Shower Transfer(FIM): 6 (or tub) Additional Goals: 1-Demonstrate ADL Tasks, 2-Verbalize Understanding, 3- ImproveStrength/Matthew 1=Demonstrate adherence to instructed precautions during ADL tasks. 2=Patient will verbalize/demonstrate understanding of assistive devices/ modifications for ADL. 3=Patient will improve strength/tolerance for activity to enable patient to perform ADL's. OT Education/Plan Problem List/Assessment Assessment: Decreased Activ Tolerance, Impaired I ADL's, Impaired Self-Care Skills Pt would benefit from skilled OT to increase her independence in basic self care to allow her to safely return to her home and to decrease caregiver burden. Discharge Recommendations Plan/Recommendations: Continue POC Therapy D/C Recommendations: Home w/ Family Support, Occupational Therapy Home Care Treatment Plan/Plan of Care Treatment,Training & Education: Yes Patient would benefit from OT for education, treatment and training to promote independence in ADL's, mobility, safety and/or upper extremity function for ADL' s. Plan of Care: ADL Retraining, Functional Mobility, Group Exercise/Act as Ind ( education, exercise, funct activity, act tolerance, socialization), UE Funct Exercise/Act, UE Neuromus Re-Ed/Coord Treatment Duration: Sep 21, 2017 Frequency: At least 5 of 7 days/Wk (IRF) Estimated Hrs Per Day: 1.5 hours per day Agreement: Yes Rehab Potential: Good Time/GCodes Start Time: 09:30 Stop Time: 10:30 Total Time Billed (hr/min): 60 Billed Treatment Time 1, ADL x 45minutes, Ex x 15minutes ANGELO LUNA OT Sep 01, 2017 15:58
[2017-09-01] MEDS: SENNA W/DOCUSATE (SENOKOT S) TABLET PO SCH ×2 (17:42→21:02)
[2017-09-01 19:42] VITALS: BP 121/76
[2017-09-02 05:03] VITALS: BP 150/75
[2017-09-02] MEDS: MULTIVIT W/MINERALS TAB (THERAGRAN M) PO SCH (05:39)
[2017-09-02] MEDS: PANTOPRAZOLE 40 MG (PROTONIX) TAB PO SCH (05:39)
[2017-09-02] MEDS: LEVOTHYROXINE 100 MCG (LEVOTHROID) TAB PO SCH (05:39)
[2017-09-02] MEDS ORDERED: CATHETER FLUSH 10 ML SYR IV PRN (08:00)
[2017-09-02] MEDS ORDERED: REGADENOSON 0.4 MG/5 ML SYR (LEXISCAN) IV ONE ×2 (08:22→08:30)
[2017-09-02 08:28] VITALS: BP 179/98
[2017-09-02] MEDS: DICLOFENAC 1% GEL 100 GM (VOLTAREN) TUBE TOP SCH ×4 (09:00→20:21)
[2017-09-02] MEDS: oxyCODONE/APAP 5/325MG (PERCOCET 5) TABLET PO PRN (09:48)
[2017-09-02] MEDS: BISOPROLOL/HCTZ 5/6.25 MG (ZIAC) TAB PO SCH (09:48)
[2017-09-02] MEDS: LORATADINE (CLARITIN) 10 MG TAB PO SCH (09:48)
[2017-09-02] MEDS: eZETimibe 10 MG (ZETIA) TABLET PO SCH (09:48)
[2017-09-02] MEDS: SERTRALINE 50 MG (ZOLOFT) TABLET PO SCH (09:49)
[2017-09-02] MEDS: SENNA W/DOCUSATE (SENOKOT S) TABLET PO SCH ×2 (09:49→20:20)
[2017-09-02] MEDS: ASPIRIN E.C. 325 MG (ECOTRIN) TABLET PO SCH ×2 (09:49→20:20)
[2017-09-02 11:00] VITALS: BP 163/77
[2017-09-02] MEDS ORDERED: HYDROcodone/APAP 10 MG/325 MG (LORTAB) TAB PO PRN (11:15)
--- NOTE | 2017-09-02 11:32 | PM & R (SOAP) Progress Note ---
Subjective Time Seen by Provider: 11:25 Subjective/Events-last exam Patient was seen in her room this AM Spoke with PT and RN Patient had stress test this AM with Cardiology this Morning and had an episode of dizziness after one session of therapy on exercise bike RN feels that it may be due to percocet which was switched from hydrocodone upon admission to to IRU.Will switch back to Hydrocodone again but with higher strength of Hydrocodone Apap Combo. Review of Systems Neurological: Other (dizziness) Objective Exam Last Set of Vital Signs Vital Signs Date Time Temp Pulse Resp B/P (MAP) Pulse Ox O2 Delivery O2 Flow Rate FiO2 09/02/17 08:28 93 179/98 (125) 98 09/02/17 05:03 97.7 16 Room Air Capillary Refill : I&O Intake and Output 09/02/17 00:00 Intake Total 1800 ml Balance 1800 ml Intake Oral 1800 ml # Voids 6 General: Alert, Oriented X3, Cooperative HEENT: Atraumatic, PERRLA Neck: Supple, No JVD, No Thyromegaly Lungs: Clear to Auscultation, Normal Air Movement Heart: Regular Rate, Normal S1, Normal S2, No Murmurs Abdomen: Normal Bowel Sounds, Soft, No Tenderness, No Hepatosplenomegaly, No Masses Extremities: No Clubbing, No Cyanosis, No Edema, Normal Pulses, No Tenderness/ Swelling Skin: No Rashes, No Breakdown, No Significant Lesion Neuro: Normal Gait, Normal Speech, Strength at 5/5 X4 Ext, Normal Tone, Sensation Intact Psych/Mental Status: Mental Status NL, Mood NL Results Lab Laboratory Tests 09/01/17 09:42: Troponin I < 0.30 09/01/17 15:36: Troponin I < 0.30 Assessment/Plan Assessment Rt Hip frx s/p repair Chest pain nonspecific etiolgy cardiology following HTN controlled-was high this am but now 163/77 Thoracic Aortic Aneurysm stable HLP on Zetia Family HX of TAA Urinary Incontinenece wears pad Plan Continue PT/OT ST has signed off Team Conference held yesterday-see report for full functional update and POC and ELOS F/U with Dr Dawkins and Cardiology prn Patient may miss full 3 hours of therapies today to her complaints and stress test done this AM. ANTONELLA RAM MD Sep 02, 2017 11:32 am
--- NOTE | 2017-09-02 11:51 | Individualized Plan of Care ---
Individualized Plan of Care Rehab Nursing IPOC Order Admission Date Aug 31, 2017 at 09:20 Current Orders Orders Admission-Acute Rehab Unit (08/31/17 08:44) Pt Evaluate/Treat Request (08/31/17 08:44) Request Ot Evaluate & Treat (08/31/17 08:44) Request For Cognitive Services (08/31/17 08:44) Admission (Physician Order) (08/31/17 10:28) Code/Resuscitation (08/31/17 10:28) Initiate Admission Nursing Pro .admission (08/31/17 10:28) Isolation Central Supply Req (08/31/17 10:28) General/Regular (08/31/17 Breakfast) Ambulate TID (08/31/17 10:42) Sequential Compression Device (08/31/17 10:42) Dvt/Vte Risk - Notifiy Physici (08/31/17 10:42) Code/Resuscitation (08/31/17 10:50) Incentive Spirometry (Nursing) Q2H (08/31/17 10:50) Maxim Hoskins (08/31/17 10:50) Bisoprolol/Hctz Tablet 5/6.25 (Ziac 5/6. (09/01/17 09:00) Diclofenac 1% Gel (Voltaren 1% Gel) (08/31/17 13:00) Docusate Sodium Capsule (Colace Capsule) (08/31/17 21:00) Bisacodyl Tablet (Dulcolax Tablet) (08/31/17 11:00) Hydrocodone/Apap 5/325 Tablet (Lortab 5 (08/31/17 11:00) Therapeutic Multivitamin Tab (Vitamins, (09/01/17 07:00) Pantoprazole Tablet (Protonix Tablet) (09/01/17 07:00) Sertraline Tablet (Zoloft Tablet) (09/01/17 09:00) Ezetimibe Tablet (Zetia Tablet) (09/01/17 09:00) Vital Signs: Routine 08,16,00 (08/31/17 10:55) Metal [employer]-Inpt Rehab (08/31/17 10:55) Rehab Nursing Orders-Ipoc (08/31/17 10:55) Turn And Reposition Q2HR (08/31/17 10:55) Intake & Output 06,14,22 (08/31/17 10:55) Weekly Weight (Lbs) WEEK (08/31/17 10:55) Levothyroxine Tablet (Synthroid Tablet) (09/01/17 06:30) Aspirin Enteric Coated Tablet (Ecotrin T (08/31/17 21:00) Senna S Tablet (Senokot S Tablet) (08/31/17 21:00) Loratadine Tablet (Claritin Tablet) (09/01/17 09:00) Pharmacy Communication (Pharmacy Communi (08/31/17 11:15) Pharmacy Communication (Pharmacy Communi (08/31/17 11:15) Oxycodone/Apap 5/325mg Tablet (Percocet (08/31/17 11:30) Consult Physician (08/31/17 11:23) Patient Visit (08/31/17 ) Pt Eval Moderate Complexity (08/31/17 ) Functional Activities, Ea 15 (08/31/17 ) Exercise Therap, Ea 15 Min (08/31/17 ) Patient Visit (08/31/17 ) Speech Sound Lang Comp (08/31/17 ) Patient Visit (08/31/17 ) Gait Training, Ea 15 Min (08/31/17 ) Oxycodone/Apap 5/325mg Tablet (Percocet (08/31/17 15:30) Tramadol Tablet (Ultram Tablet) (08/31/17 15:15) Ekg Tracing (09/01/17 08:52) Cardiac Profile 1 (09/01/17 08:52) Consult Physician (09/01/17 08:52) Cardiac Profile 2 (09/01/17 15:40) Myocardial Spect Multi (09/02/17 08:00) Npo After Midnight (Nursing Or (09/01/17 14:25) Nothing By Mouth (09/02/17 Breakfast) Patient Visit (09/01/17 ) Functional Activities, Ea 15 (09/01/17 ) Gait Training, Ea 15 Min (09/01/17 ) Exercise Therap, Ea 15 Min (09/01/17 ) Therapeutic, Group (09/01/17 ) Sodium Chloride Flush (Catheter Flush Sy (09/02/17 08:00) Regadenoson (Lexiscan (For Diagnostic Im (09/02/17 08:22) Regadenoson (Lexiscan (For Diagnostic Im (09/02/17 08:30) Hydrocodone/Apap 10/325 Tablet (Lortab 1 (09/02/17 11:15) General/Regular (09/02/17 Lunch) Rehab Nursing Orders: Diseage Management, Edu in Press Rel Techn, Hydration Management, Nutrition Management, Pain Management Other Nursing Orders: Monitor for postop urinary retention and constipation PT IPOC Problem List: Activity Tolerance, Functional Strength, Safety, Balance, Gait, Transfer, Bed Mobility Treatment Plan: Continue Plan of Care Bed Mobility, Education, Functional Activity Matthew, Functional Strength, Group Therapy, Gait, Safety, Therapeutic Exercise, Transfers Treatment Duration: Sep 21, 2017 Frequency: At least 5 of 7 days/Wk (IRF) Estimated Hrs Per Day: 1.5 hours per day OT IPOC Problems: Decreased Activ Tolerance, Impaired I ADL's, Impaired Self-Care Skills OT Treatment, Training and Edu: Yes OT Problems Pt would benefit from skilled OT to increase her independence in basic self care to allow her to safely return to her home and to decrease caregiver burden. Plan of Care: ADL Retraining, Functional Mobility, Group Exercise/Act as Ind ( education, exercise, funct activity, act tolerance, socialization), UE Funct Exercise/Act, UE Neuromus Re-Ed/Coord Treatment Duration: Sep 21, 2017 Frequency: At least 5 of 7 days/Wk (IRF) Estimated Hrs Per Day: 1.[address] IPOC Speech Therapy Treatment Plan: Discontinue ST Treatment Duration: Sep 02, 2017 Frequency: Modified Program (IRF) Estimated Hrs Per Day: Other [employer]/Case Mgmt [employer]/Case Managemen: Discharge Planning, Patient/Family Counseling Physician IPOC Medical Issues being managed closely and that require the 24 hour availability of a physician: Postop dizziness and pain management and HTN Medical Issues: DVT Prophylaxis, Falls Precautions, Infection Protection, Pain Management, Wound Care, Other (List) (as per above) Brief Synthesis of Preadmission Screen, Post-Admission Evaluation, and Therapy Evaluations: 86 yo female tarnsferred to IRU for ortho rehab s/p fall with resulting rt hip fracture.Had poorly controlled HTN on medical unit had CP the other day and cardiology following again EKG NSR Stress test done today results pending .Cardiac enzyme negative.Had episode of dizziness today which may have been medication related have asked Nursing to contact DR Dawkins PCP to see if furthe testing or adjustments in meds need to be done.Patient had been Modified Independent for transfers yesterday and Dischar e set tentatively for Wednesday Medical Prognosis: Fair Anticipated Length of Stay: 09-06-17 Rehab Goals Modified Independent for adls and mobility skills with good pain control as well as control of Blood pressure and resolution of her various complaints.Patient may miss full 3 hours of therapy today due to above issues and stress test being done this am Anticipated discharge destinat: Home with [facility] and family ANTONELLA RAM MD Sep 02, 2017 11:51
--- NOTE | 2017-09-02 11:51 | Physical Therapy Daily Note ---
PT Daily Note-Current Subjective Patient is in bed just having returned from stress test and agrees to PT. Family present. Pain Numeric Pain Scale: 5-Moderate Pain Location: Right Location Body Site: Hip Pain Description: Acute Mental Status Patient Orientation: Normal For Age Transfers Functional [place] Measure 0=Not Assessed/NA 4=Minimal Assistance 1=Total Assistance 5=Supervision or Setup 2=Maximal Assistance 6=Modified [place] 3=Moderate Assistance 7=Complete IndependenceIRFPAI Quality Coding Scale 6 Independent with activity with or without an assistive device 5 Patient requires set up or clean up by helper. Patient completes activity by themselves 4 Supervision or touching assist (CGA). [place] provide cues , steadying assist 3 The helper provides less than half the effort to complete the activity 2 The helper provides more than half the effort to complete the activity 1 Dependent. The helper does all the effort to complete an activity 7 Patient refused to complete or attempt activity 9 The patient did not perform the activity before the current illness or injury 88 Not attempted due to Medical conditions or safety concerns Transfers (B, C, W/C) (FIM): 5 Scootin Supine to/from Sit: 5 Sit to/from Stand: 5 Sit to Lying (QC): 5 Sit to Stand (QC): 5 Chair/Ggw-at-Dcyly Xfer(QC): 5 Bed to/from Chair: 5 Car Transfer (QC): 5 Weight Bearing Right Lower Extremity: Right Weight Bearing/Tolerated Left Lower Extremity: Left Full Weight Bearing Gait Training Does the Patient Walk?: Yes Gait (FIM): 5 Distance (FIM): 3=150 ft Distance: 150' x 2 Walk 10 feet (QC): 5 Walk 50 ft with 2 Turns(QC): 5 Walk 150 ft (QC): 5 Gait Level of Assist: 5 Gait Assistive Device: FWW steady, antalgic gait sequence. Exercises Supine Ex: Ankle pumps, Quad Set, Heel Slides, Straight leg raise, Hip abd/add Supine Reps: 25 (2 sets bilaterally to increase functional strength and mobility) Seated Therapy Exercises: Ankle pumps, Long arc quads Seated Reps: 25 (2 sets bilaterally) NuStep Minutes: 15 NuStep Workload: 3 (to increase strength) Assessment Patient requires time to complete all functional tasks and requires recovery periods due to fatigue. She becomes diaphoretic during treatment and is alert and "joking" with therapist during treatment session. When returned to room with family present, patient became lethargic/weak and returned to bed. Vitals taken, refer to RN notes, all stable and WNL. Family became very adamant to cease treatment and allow patient to "recover" from stress test and that this is "too much". PT educated family on requirements of participating to remain on this unit, however, they continued to cease treatment. PT will return at 1230 to complete session. PT Short Term Goals Short Term Goals Time Frame: Sep 07, 2017 Gait (FIM): 4 Distance (FIM): 3=150 ft Gait Assistive Device: FWW PT Residential Goals Residential Goals PT Software Quality Test Engineer Goals Time Frame: Sep 21, 2017 Transfers (B,C,W/C) (FIM): 6 Sit to Lying (QC): 6 Lying-Sitting on Side/Bed(QC): 6 Sit to Stand (QC): 6 Rollin Roll Left to Right (QC): 6 Chair/Hst-fp-Zupwv Xfer(QC): 6 Car Transfer (QC): 6 Does the Patient Walk: Yes Gait (FIM): 6 Gait distance (FIM): 3=150 ft Walk 10 feet (QC): 6 Walk 10ft-Uneven Surface(QC): 6 Walk 50ft with 2 Turns (QC): 6 Walk 150 ft (QC): 6 Gait Assistive Device: FWW Does the Pt use WC or Scooter?: No Stairs (FIM): 5 # of Steps: 8 1 Step (curb) (QC): 6 4 Steps (QC): 6 12 Steps (QC): 88 Picking up an Object (QC): 5 (mod indep) PT Plan Treatment/Plan Treatment Plan: Continue Plan of Care Treatment Plan: Bed Mobility, Education, Functional Activity Matthew, Functional Strength, Group Therapy, Gait, Safety, Therapeutic Exercise, Transfers Treatment Duration: Sep 21, 2017 Frequency: At least 5 of 7 days/Wk (IRF) Estimated Hrs Per Day: 1.5 hours per day Patient and/or Family Agrees t: Yes Time/GCodes Time In: 1000 Time Out: 1100 Total Billed Treatment Time: 60 Total Billed Treatment 1 visit EX x 3 46 min GT 14 min STACY TRIPP PT Sep 02, 2017 11:51
--- NOTE | 2017-09-02 12:52 | Physical Therapy Daily Note ---
PT Daily Note-Current Subjective Patient reports she is feeling better and agrees to PT. Pain Numeric Pain Scale: 5-Moderate Pain Location: Right Location Body Site: Hip Pain Description: Acute Mental Status Patient Orientation: Normal For Age Transfers Functional [place] Measure 0=Not Assessed/NA 4=Minimal Assistance 1=Total Assistance 5=Supervision or Setup 2=Maximal Assistance 6=Modified [place] 3=Moderate Assistance 7=Complete IndependenceIRFPAI Quality Coding Scale 6 Independent with activity with or without an assistive device 5 Patient requires set up or clean up by helper. Patient completes activity by themselves 4 Supervision or touching assist (CGA). [place] provide cues , steadying assist 3 The helper provides less than half the effort to complete the activity 2 The helper provides more than half the effort to complete the activity 1 Dependent. The helper does all the effort to complete an activity 7 Patient refused to complete or attempt activity 9 The patient did not perform the activity before the current illness or injury 88 Not attempted due to Medical conditions or safety concerns Transfers (B, C, W/C) (FIM): 5 Scootin Roll Left to Right (QC): 5 Supine to/from Sit: 5 Sit to/from Stand: 5 Sit to Lying (QC): 5 Sit to Stand (QC): 5 Weight Bearing Right Lower Extremity: Right Weight Bearing/Tolerated Left Lower Extremity: Left Full Weight Bearing Gait Training Does the Patient Walk?: Yes Gait (FIM): 5 Distance (FIM): 3=150 ft Distance: 150' x 2 Walk 10 feet (QC): 5 Walk 50 ft with 2 Turns(QC): 5 Walk 150 ft (QC): 5 Gait Level of Assist: 5 Gait Assistive Device: FWW antalgic, reciprocal pattern Exercises Seated Therapy Exercises: Ankle pumps, Long arc quads, Hip flexion, Hip abd/add Seated Reps: 25 (bilaterally) Assessment Patient tolerated treatment well and reports during her treatment that she has episodes of "anxiousness" at home PLOF and requires rest to recovery. PT Short Term Goals Short Term Goals Time Frame: Sep 07, 2017 Gait (FIM): 4 Distance (FIM): 3=150 ft Gait Assistive Device: FWW PT Metal Sprayer Goals Metal Sprayer Goals PT Assisted Goals Time Frame: Sep 21, 2017 Transfers (B,C,W/C) (FIM): 6 Sit to Lying (QC): 6 Lying-Sitting on Side/Bed(QC): 6 Sit to Stand (QC): 6 Rollin Roll Left to Right (QC): 6 Chair/Hfl-ur-Xxqff Xfer(QC): 6 Car Transfer (QC): 6 Does the Patient Walk: Yes Gait (FIM): 6 Gait distance (FIM): 3=150 ft Walk 10 feet (QC): 6 Walk 10ft-Uneven Surface(QC): 6 Walk 50ft with 2 Turns (QC): 6 Walk 150 ft (QC): 6 Gait Assistive Device: FWW Does the Pt use WC or Scooter?: No Stairs (FIM): 5 # of Steps: 8 1 Step (curb) (QC): 6 4 Steps (QC): 6 12 Steps (QC): 88 Picking up an Object (QC): 5 (mod indep) PT Plan Treatment/Plan Treatment Plan: Continue Plan of Care Treatment Plan: Bed Mobility, Education, Functional Activity Matthew, Functional Strength, Group Therapy, Gait, Safety, Therapeutic Exercise, Transfers Treatment Duration: Sep 21, 2017 Frequency: At least 5 of 7 days/Wk (IRF) Estimated Hrs Per Day: 1.5 hours per day Patient and/or Family Agrees t: Yes Time/GCodes Time In: 1220 Time Out: 1250 Total Billed Treatment Time: 30 Total Billed Treatment 1 visit GT 15 min EX 15 min STACY TRIPP PT Sep 02, 2017 12:52
[2017-09-02] MEDS: HYDROcodone/APAP 10 MG/325 MG (LORTAB) TAB PO SCH ×3 (13:38→20:21)
--- NOTE | 2017-09-02 16:17 | Occ Therapy Progress Note ---
Therapy Progress Note Attempted to see pt. this morning right after PT treatment. Pt. had episode in which she had became sweaty and short of air. Pt. laying down. Nursing talking with to determine pt's needs. BP okay at this time. Spoke with family regarding OT treatment. Pt. adamant to not work with pt. at this time, as she was trying to get her pain under control. OT let family know she would check back later. 1105 1, visit Declined at this time ANGELO LUNA OT Sep 02, 2017 16:17
--- NOTE | 2017-09-02 16:27 | Occupational Ther Daily Note ---
OT Current Status-Daily Note Subjective Pt. became short of air at end of treatment and requested to lay down immediately. Please see note below. Appearance Pt. agreeable to treatment at beginning of session, and reports that she is feeling well. Mental Status/Objective Patient Orientation: Person, Place Functional [place] Measure 0=Not Assessed/NA 4=Minimal Assistance 1=Total Assistance 5=Supervision or Setup 2=Maximal Assistance 6=Modified [place] 3=Moderate Assistance 7=Complete [place] ADL-Treatment Functional [place] Measure 0=Not Assessed/NA 4=Minimal Assistance 1=Total Assistance 5=Supervision or Setup 2=Maximal Assistance 6=Modified [place] 3=Moderate Assistance 7=Complete IndependenceIRFPAI Quality Coding Scale 6 Independent with activity with or without an assistive device 5 Patient requires set up or clean up by helper. Patient completes activity by themselves 4 Supervision or touching assist (CGA). [place] provide cues , steadying assist 3 The helper provides less than half the effort to complete the activity 2 The helper provides more than half the effort to complete the activity 1 Dependent. The helper does all the effort to complete an activity 7 Patient refused to complete or attempt activity 9 The patient did not perform the activity before the current illness or injury 88 Not attempted due to Medical conditions or safety concerns Bathing (FIM): 5 (Set up) Shower/Bathe Self (QC): 5 Upper Body (FIM): 5 (set up) Upper Body Dressing (QC): 5 Lower Body Dressing (FIM): 5 Lower Body Dressing (QC): 5 On/Off Footwear (QC): 4 (Min assist with shoelaces only.) Transfers (B, C, W/C) (FIM): 5 (SBA with walker.) Shower Transfer(FIM): 5 (SBA) Other Treatment OT came back to room after pt. rested from morning episode. Pt. states that she is feeling much better, and agreeable to treatment. Family present in room. Pt. agreeable to shower. Pt. ambulates to shower with SBA using walker. Transferred to shower with SBA. Pt. able to doff all clothing with SBA with no AE needed, except for shower chair. OT ran water to side to let water warm. Water did not warm, and continued to be cold. Pt. states that she is not cold , however, OT placed towels over her. OT called for assistance, and tech brought two buckets of hot water. Pt. laughed and states that she is doing fine. Pt. able to bathe with set up, spongebath style while in shower, with OT present. Able to do all task with SBA. Pt. dressed self, and encouraged to take her time, as she seems to get in a hurry. Pt. became SOA, and states, "I do this a lot." Pt. is encouraged to breathe, and she becomes better. OT and pt. talk about anxiety and panic. Pt. states that she does this often, and feels "weak." Pt. indicates that she is worried that her family has to take care of her. Pt. is encouraged and praised for having family that is present and willing to assist her. Pt. states that she feels much better, and continues with dressing tasks. Nursing administers pain medicine, and after she leaves, pt. becomes SOA again. States, "I have to get to bed immediately." Pt. gets up and begins to ambulate. OT walks with her, and assists her to bed. Let family know what happened. OT takes BP- 151/81. Oxygen 95%. HR 75. Family state that they feel that this may be related to pain. That she becomes SOA when she has pain. Any further treatment declined at this time. Nursing notified of all episodes. All needs met in room. Education OT Patient Education: Correct positioning, Modified ADL techniques, Progress toward Goal/Update tx plan, Purpose of tx/functional activities, Reviewed precautions, Rehab process, Transfer techniques Teaching Recipient: Patient, Family Teaching Methods: Demonstration, Discussion Response to Teaching: Verbalize Understanding, Return Demonstration OT Short Term Goals Short Term Goals Time Frame: Sep 07, 2017 Bathing(FIM): 5 Lower Body Dressing(FIM): 4 Toileting(FIM): 5 Toilet/Commode Transfer(FIM): 5 Additional Short Term Goals: 1-Demonstrate ADL Tasks, 2-Verbalize Understanding , 3-ImproveStrength/Matthew 1=Demonstrate adherence to instructed precautions during ADL tasks. 2=Patient will verbalize/demonstrate understanding of assistive devices/ modifications for ADL. 3=Patient will improve strength/tolerance for activity to enable patient to perform ADL's. OT Scow Derrick Operator Goals Scow Derrick Operator Goals Time Frame: Sep 21, 2017 Eating (FIM): 6 Eating (QC): 6 Groomin Oral Hygiene (QC): 6 Bathing(FIM): 6 Shower/Bathe Self (QC): 6 Upper Body Dressing(FIM): 6 Upper Body Dressing (QC): 6 Lower Body Dressing(FIM): 6 Lower Body Dressing (QC): 6 On/Off Footwear (QC): 6 Toileting(FIM): 6 Toileting Hygiene (QC): 6 Toilet/Commode Transfer(FIM): 6 Toilet/Commode Transfer (QC): 6 Tub Transfer(FIM): 6 (or shower) Shower Transfer(FIM): 6 (or tub) Additional Goals: 1-Demonstrate ADL Tasks, 2-Verbalize Understanding, 3- ImproveStrength/Matthew 1=Demonstrate adherence to instructed precautions during ADL tasks. 2=Patient will verbalize/demonstrate understanding of assistive devices/ modifications for ADL. 3=Patient will improve strength/tolerance for activity to enable patient to perform ADL's. OT Education/Plan Problem List/Assessment Assessment: Decreased Activ Tolerance, Dependent Transfers, Impaired I ADL's, Impaired Self-Care Skills Pt would benefit from skilled OT to increase her independence in basic self care to allow her to safely return to her home and to decrease caregiver burden. Discharge Recommendations Plan/Recommendations: Continue POC Therapy D/C Recommendations: Home w/ Family Support, Occupational Therapy Home Care Treatment Plan/Plan of Care Treatment,Training & Education: Yes Patient would benefit from OT for education, treatment and training to promote independence in ADL's, mobility, safety and/or upper extremity function for ADL' s. Plan of Care: ADL Retraining, Functional Mobility, Group Exercise/Act as Ind ( education, exercise, funct activity, act tolerance, socialization), UE Funct Exercise/Act, UE Neuromus Re-Ed/Coord Treatment Duration: Sep 21, 2017 Frequency: At least 5 of 7 days/Wk (IRF) Estimated Hrs Per Day: 1.5 hours per day Agreement: Yes Rehab Potential: Good Time/GCodes Start Time: 13:00 Stop Time: 14:00 Total Time Billed (hr/min): 60 Billed Treatment Time 1, ADL x 4 ANGELO LUNA OT Sep 02, 2017 16:27
[2017-09-02 18:32] VITALS: BP 123/82
--- NOTE | 2017-09-02 21:54 | STRESS TEST ---
DATE OF SERVICE: 09/02/2017 LEXISCAN MYOVIEW STRESS TEST REPORT REFERRING PHYSICIAN: Dr. Dawkins. Baseline heart rate is 79. Baseline blood pressure 172/99. Baseline EKG is sinus rhythm with no ischemic changes. In summary, the patient received 10.22 mCi of technetium-99 Myoview and the resting images were obtained. Then, the patient received 0.4 mg of Lexiscan followed by 31.7 mCi of technetium-99 Myoview. Throughout the test, there were no EKG changes. The resting and stress images were reviewed and compared in the short axis, horizontal long axis, and vertical long axis views. Review of the images showed motion artifact with breast attenuation mild decreased uptake at the anteroapical segment with subtle reversibility. SSS is 3, SDS 3, TID value 1.06. On the gated images, the left ventricle appeared to be normal size with normal contractility. Calculated ejection fraction 78%. CONCLUSION: 1. The patient tolerated Lexiscan well. 2. Breast attenuation with typical female pattern. No significant ischemia or infarction was noted mild decreased uptake at the anterior apical segment with mild reversibility. 3. Normal left ventricular size with normal contractility. Calculated ejection fraction 78%. Job ID: [id number] DocumentID: [id number] Dictated Date: 09/02/2017 15:16:56 Process Inspector Date: 09/02/2017 17:55:43 Dictated By: JAYME VAIL MD
[2017-09-03 06:11] VITALS: BP 139/80
[2017-09-03] MEDS: LEVOTHYROXINE 100 MCG (LEVOTHROID) TAB PO SCH (06:13)
[2017-09-03] MEDS: MULTIVIT W/MINERALS TAB (THERAGRAN M) PO SCH (06:13)
[2017-09-03] MEDS: PANTOPRAZOLE 40 MG (PROTONIX) TAB PO SCH (06:13)
[2017-09-03] MEDS: BISOPROLOL/HCTZ 5/6.25 MG (ZIAC) TAB PO SCH (08:06)
[2017-09-03] MEDS: eZETimibe 10 MG (ZETIA) TABLET PO SCH (08:06)
[2017-09-03] MEDS: SERTRALINE 50 MG (ZOLOFT) TABLET PO SCH (08:06)
[2017-09-03] MEDS: LORATADINE (CLARITIN) 10 MG TAB PO SCH (08:06)
[2017-09-03] MEDS: HYDROcodone/APAP 10 MG/325 MG (LORTAB) TAB PO SCH ×4 (08:06→20:56)
[2017-09-03] MEDS: ASPIRIN E.C. 325 MG (ECOTRIN) TABLET PO SCH ×2 (08:06→20:56)
[2017-09-03] MEDS: SENNA W/DOCUSATE (SENOKOT S) TABLET PO SCH ×2 (08:08→20:56)
[2017-09-03] MEDS: DICLOFENAC 1% GEL 100 GM (VOLTAREN) TUBE TOP SCH ×4 (08:09→20:56)
--- NOTE | 2017-09-03 09:28 | PM & R (SOAP) Progress Note ---
Subjective Time Seen by Provider: 08:10 Subjective/Events-last exam Patient was seen in her room and again in common area with PT Patient SBA for tansfers and gait with WW Patient feeling better today and pain control better with adjustment in meds to scheduled Lorrtab and PRN Tramadol for breakthrough pain.Dischaege to home with family moved up to Wednesday09-05-17 Objective Exam Last Set of Vital Signs Vital Signs Date Time Temp Pulse Resp B/P (MAP) Pulse Ox O2 Delivery O2 Flow Rate FiO2 09/03/17 06:11 99.2 72 16 139/80 (99) 92 Room Air Capillary Refill : I&O Intake and Output 09/03/17 00:00 Intake Total 1200 ml Balance 1200 ml Intake Oral 1200 ml # Voids 7 General: Alert, Oriented X3, Cooperative HEENT: Atraumatic, PERRLA Neck: Supple, No JVD, No Thyromegaly Lungs: Clear to Auscultation, Normal Air Movement Heart: Regular Rate, Normal S1, Normal S2, No Murmurs Abdomen: Normal Bowel Sounds, Soft, No Tenderness, No Hepatosplenomegaly, No Masses Extremities: No Clubbing, No Cyanosis, No Edema, Normal Pulses, No Tenderness/ Swelling Skin: No Rashes, No Breakdown, No Significant Lesion Neuro: Normal Gait, Normal Speech, Strength at 5/5 X4 Ext, Normal Tone, Sensation Intact Psych/Mental Status: Mental Status NL, Mood NL Results Lab Laboratory Tests 09/01/17 09:42: Troponin I < 0.30 09/01/17 15:36: Troponin I < 0.30 Assessment/Plan Assessment Rt Hip frx s/p repair Chest pain nonspecific etiolgy cardiology following HTN controlled-was high this am but now 163/77 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 ANTONELLA RAM MD Sep 03, 2017 09:28
--- NOTE | 2017-09-03 09:31 | Physical Therapy Daily Note ---
PT Daily Note-Current Subjective Patient in bed pre tx, agrees to PT, has pain of 4/10 in right hip. Appearance Patient BTB post tx with nurse call, phone, tray, family in the room. Mental Status Patient Orientation: Normal For Age Transfers Functional [place] Measure 0=Not Assessed/NA 4=Minimal Assistance 1=Total Assistance 5=Supervision or Setup 2=Maximal Assistance 6=Modified [place] 3=Moderate Assistance 7=Complete IndependenceIRFPAI Quality Coding Scale 6 Independent with activity with or without an assistive device 5 Patient requires set up or clean up by helper. Patient completes activity by themselves 4 Supervision or touching assist (CGA). [place] provide cues , steadying assist 3 The helper provides less than half the effort to complete the activity 2 The helper provides more than half the effort to complete the activity 1 Dependent. The helper does all the effort to complete an activity 7 Patient refused to complete or attempt activity 9 The patient did not perform the activity before the current illness or injury 88 Not attempted due to Medical conditions or safety concerns Transfers (B, C, W/C) (FIM): 5 Scootin Rollin Roll Left to Right (QC): 6 Supine to/from Sit: 6 Sit to/from Stand: 5 Sit to Lying (QC): 6 Sit to Stand (QC): 4 Chair/Wgl-iv-Adesd Xfer(QC): 4 Bed to/from Chair: 5 Car Transfer (QC): 4 Patient performs bed mobility with mod I, transfers with SBA, car transfer with CGA. Weight Bearing Right Lower Extremity: Right Weight Bearing/Tolerated Left Lower Extremity: Left Full Weight Bearing Gait Training Gait (FIM): 5 Distance: 500', 150' Walk 10 feet (QC): 4 Walk 50 ft with 2 Turns(QC): 4 Walk 150 ft (QC): 4 Walking 10ft/uneven surface-QC: 4 Gait Level of Assist: 5 Gait Persons Needed: 1 Gait Assistive Device: FWW Patient can ambulate 500' with a rolling walker with SBA, including 10' over an uneven surface and 50' with at least 2 turns of 90 degrees. Patient ambulates slowly, antalgic, and decreased stance time on the right leg. Wheelchair Training Does the Pt Use a Wheelchair?: No Stair Training Stairs (FIM): 4 #of Steps: 12 1 Step (curb) (QC): 4 4 Steps (QC): 4 12 Steps (QC): 4 Stairs: Pattern: Step to Level of Assist: 4 Patient can go up and down 12 steps using 2 handrails with CGA. She has a lot of trouble with sequencing and needs a lot of cues for that. Balance Picking up an Object (QC): 88 Exercises NuStep Minutes: 15 NuStep Workload: 5 Treatments bed mobility, transfers, ambulation, stair training, functional strengthening Assessment Current Status: Fair Progress improved endurance and general mobility PT Short Term Goals Short Term Goals Time Frame: Sep 07, 2017 Gait (FIM): 4 Distance (FIM): 3=150 ft Gait Assistive Device: FWW PT Custodial Goals Custodial Goals PT Weather Analyst Goals Time Frame: Sep 21, 2017 Transfers (B,C,W/C) (FIM): 6 Sit to Lying (QC): 6 (met) Lying-Sitting on Side/Bed(QC): 6 (met) Sit to Stand (QC): 6 Rollin (met) Roll Left to Right (QC): 6 (met) Chair/Kfp-oq-Ettcv Xfer(QC): 6 Car Transfer (QC): 6 Does the Patient Walk: Yes Gait (FIM): 6 Gait distance (FIM): 3=150 ft Walk 10 feet (QC): 6 Walk 10ft-Uneven Surface(QC): 6 Walk 50ft with 2 Turns (QC): 6 Walk 150 ft (QC): 6 Gait Assistive Device: FWW Does the Pt use WC or Scooter?: No Stairs (FIM): 5 # of Steps: 8 1 Step (curb) (QC): 6 4 Steps (QC): 6 12 Steps (QC): 88 Picking up an Object (QC): 5 (mod indep) PT Plan Problem List Problem List: Activity Tolerance, Functional Strength, Safety, Balance, Gait, Transfer, Bed Mobility, ROM Treatment/Plan Treatment Plan: Continue Plan of Care Treatment Plan: Bed Mobility, Education, Functional Activity Matthew, Functional Strength, Group Therapy, Gait, Safety, Therapeutic Exercise, Transfers Treatment Duration: Sep 21, 2017 Frequency: At least 5 of 7 days/Wk (IRF) Estimated Hrs Per Day: 1.5 hours per day Patient and/or Family Agrees t: Yes Safety Risks/Education Patient Education: Gait Training, Transfer Techniques, Steps, Correct Positioning, Safety Issues Teaching Recipient: Patient Teaching Methods: Demonstration, Discussion Response to Teaching: Reinforcement Needed Time/GCodes Time In: 845 Time Out: 930 Total Billed Treatment Time: 45 Total Billed Treatment 1 visit GT 15' EX 15' FA 15' IRENE UGALDE PT Sep 03, 2017 09:31
[2017-09-03] MEDS ORDERED: TRAM50TA2 PO (09:35)
[2017-09-03] MEDS ORDERED: HYDR-3820 PO (09:35)
[2017-09-03] MEDS ORDERED: ASPI325T32 PO (09:35)
[2017-09-03] MEDS ORDERED: DICL100G18 TOP (09:35)
--- NOTE | 2017-09-03 10:02 | Cardiology Progress Note ---
Subjective Date Seen by Provider: Sep 03, 2017 Time Seen by Provider: 10:01 Subjective/Events-last exam Patient is in bed, complaining of hip pain, no chest pain Review of Systems General: No Chills, No Night Sweats, No Fatigue, No Malaise, No Appetite, No Other HEENT: No Head Aches, No Visual Changes, No Eye Pain, No Ear Pain, No Dysphasia , No Sinus Congestion, No Post Nasal Drip, No Sore Throat, No Other Pulmonary: No Dyspnea, No Cough, No Pleuritic Chest Pain, No Other Cardiovascular: No: Chest Pain, Palpitations, Orthopnea, Paroxysmal Noc. Dyspnea, Edema, Lt Headedness, Other Objective-Cardiology Exam Last Set of Vital Signs Vital Signs 09/03/17 06:11 Temp 99.2 Pulse 72 Resp 16 B/P (MAP) 139/80 (99) Pulse Ox 92 O2 Delivery Room Air Capillary Refill : I&O Intake and Output 09/03/17 00:00 Intake Total 1200 ml Balance 1200 ml Intake Oral 1200 ml # Voids 7 General: Alert, Oriented X3, Cooperative HEENT: Atraumatic, PERRLA Neck: Supple, No JVD, No Thyromegaly Lungs: Clear to Auscultation, Normal Air Movement Heart: Regular Rate, Normal S1, Normal S2, No Murmurs Abdomen: Normal Bowel Sounds, Soft, No Tenderness, No Hepatosplenomegaly, No Masses Extremities: No Clubbing, No Cyanosis, No Edema, Normal Pulses, No Tenderness/ Swelling Skin: No Rashes, No Breakdown, No Significant Lesion Neuro: Normal Gait, Normal Speech, Strength at 5/5 X4 Ext, Normal Tone, Sensation Intact Psych/Mental Status: Mental Status NL, Mood NL A/P-Cardiology Admission Diagnosis Chest pain Right hip fracture Hypertension Thoracic aortic aneurysm Assessment/Plan Chest pain, non specific etiology- resolved. EKG reveals SR with no acute ST changes, stress test showed no ischemia with normal LV function Dyspnea on exertion, better at this time Right hip fracture, status post surgical repair done on 08/29/17. Recovering well. Hypertension, controlled. Continue to monitor BP/HR. Thoracic aortic aneurysm, seen and evaluated by Dr. Jhon Fong. Continue to monitor. Hyperlipidemia, maintained on Zetia. Monitored as outpatient History of urinary incontinence Family history of thoracic aneurysm Clinical Quality Measures DVT/VTE Risk/Contraindication: Risk Factor Score Per Nursin RFS Level Per Nursing on Admit: 4+=Very High JAYME VAIL MD Sep 03, 2017 10:02
--- NOTE | 2017-09-03 12:47 | Occupational Ther Daily Note ---
OT Current Status-Daily Note Subjective No pain reported at this time. Appearance Pt. in bed. Agreeable to work with OT. Mental Status/Objective Patient Orientation: Person, Place Functional [place] Measure 0=Not Assessed/NA 4=Minimal Assistance 1=Total Assistance 5=Supervision or Setup 2=Maximal Assistance 6=Modified [place] 3=Moderate Assistance 7=Complete [place] ADL-Treatment Functional [place] Measure 0=Not Assessed/NA 4=Minimal Assistance 1=Total Assistance 5=Supervision or Setup 2=Maximal Assistance 6=Modified [place] 3=Moderate Assistance 7=Complete IndependenceIRFPAI Quality Coding Scale 6 Independent with activity with or without an assistive device 5 Patient requires set up or clean up by helper. Patient completes activity by themselves 4 Supervision or touching assist (CGA). [place] provide cues , steadying assist 3 The helper provides less than half the effort to complete the activity 2 The helper provides more than half the effort to complete the activity 1 Dependent. The helper does all the effort to complete an activity 7 Patient refused to complete or attempt activity 9 The patient did not perform the activity before the current illness or injury 88 Not attempted due to Medical conditions or safety concerns Bathing (FIM): 5 (SBA to wash all parts in shower.) Shower/Bathe Self (QC): 4 Upper Body (FIM): 5 (SBA to don bra and shirt.) Upper Body Dressing (QC): 4 Lower Body Dressing (FIM): 4 (OT put elastic laces in shoes. However, shoes are soft, and even with shoe spoon, pt. is unable to get shoes on feet. Pt. is able to get underwear and pants on. Pt. states that she has shoes at home that do not have a back on them.) Lower Body Dressing (QC): 4 On/Off Footwear (QC): 4 Toileting (FIM): 6 (Mod I to toilet self.) Toileting Hygiene (QC): 6 Transfers (B, C, W/C) (FIM): 5 (SBA with walker, as pt. get short of air at times and requires rest breaks.) Toilet/Commode Transfer (FIM): 6 Toilet Transfer (QC): 6 Shower Transfer(FIM): 5 Other Treatment Pt. is agreeable to shower. No hot water on second floor, so pt. agrees to ambulate to elevator, to go to fourth. Pt. showered in fourth floor shower. Does require increased time and seems to become anxious due to water being slightly colder than she is used to (water was lukewarm). Pt. is encouraged to take her time, but pt. seems to want to get out of shower room quickly. After dressing in shower room, ambulated back to second floor. Sat in dining area and rested. Seemed ready to ambulate back to room. SBA for safety due to anxiety. Pt. able to get self back into bed with no difficulty. All needs met. Education OT Patient Education: Correct positioning, Modified ADL techniques, Progress toward Goal/Update tx plan, Purpose of tx/functional activities, Reviewed precautions, Rehab process, Transfer techniques, Use of adapted equipment Teaching Recipient: Patient Teaching Methods: Demonstration, Discussion Response to Teaching: Verbalize Understanding, Return Demonstration OT Short Term Goals Short Term Goals Time Frame: Sep 07, 2017 Bathing(FIM): 5 Lower Body Dressing(FIM): 4 Toileting(FIM): 5 Toilet/Commode Transfer(FIM): 5 Additional Short Term Goals: 1-Demonstrate ADL Tasks, 2-Verbalize Understanding , 3-ImproveStrength/Matthew 1=Demonstrate adherence to instructed precautions during ADL tasks. 2=Patient will verbalize/demonstrate understanding of assistive devices/ modifications for ADL. 3=Patient will improve strength/tolerance for activity to enable patient to perform ADL's. OT Improvement Director Goals Intermediate Goals Time Frame: Sep 21, 2017 Eating (FIM): 6 Eating (QC): 6 Groomin Oral Hygiene (QC): 6 Bathing(FIM): 6 Shower/Bathe Self (QC): 6 Upper Body Dressing(FIM): 6 Upper Body Dressing (QC): 6 Lower Body Dressing(FIM): 6 Lower Body Dressing (QC): 6 On/Off Footwear (QC): 6 Toileting(FIM): 6 Toileting Hygiene (QC): 6 Toilet/Commode Transfer(FIM): 6 Toilet/Commode Transfer (QC): 6 Tub Transfer(FIM): 6 (or shower) Shower Transfer(FIM): 6 (or tub) Additional Goals: 1-Demonstrate ADL Tasks, 2-Verbalize Understanding, 3- ImproveStrength/Matthew 1=Demonstrate adherence to instructed precautions during ADL tasks. 2=Patient will verbalize/demonstrate understanding of assistive devices/ modifications for ADL. 3=Patient will improve strength/tolerance for activity to enable patient to perform ADL's. OT Education/Plan Problem List/Assessment Assessment: Decreased Activ Tolerance, Impaired I ADL's, Impaired Self-Care Skills Pt would benefit from skilled OT to increase her independence in basic self care to allow her to safely return to her home and to decrease caregiver burden. Discharge Recommendations Plan/Recommendations: Continue POC Therapy D/C Recommendations: Home w/ Family Support, Occupational Therapy Home Care Target Placement Home with family support. Pt. would also benefit from home health OT to make sure she is fully set up in her home setting. Treatment Plan/Plan of Care Treatment,Training & Education: Yes Patient would benefit from OT for education, treatment and training to promote independence in ADL's, mobility, safety and/or upper extremity function for ADL' s. Plan of Care: ADL Retraining, Functional Mobility, Group Exercise/Act as Ind ( education, exercise, funct activity, act tolerance, socialization), UE Funct Exercise/Act, UE Neuromus Re-Ed/Coord Treatment Duration: Sep 21, 2017 Frequency: At least 5 of 7 days/Wk (IRF) Estimated Hrs Per Day: 1.5 hours per day Agreement: Yes Rehab Potential: Good Time/GCodes Start Time: 11:00 Stop Time: 12:00 Total Time Billed (hr/min): 60 Billed Treatment Time 1, ADL x 4 ANGELO LUNA OT Sep 03, 2017 12:47
--- NOTE | 2017-09-03 14:50 | Therapy Group Daily Note ---
Therapy Daily Group Note Patient Education Topic Other List Below (education RE: pain and management) Exercises LE Seated Exercise, UE Exercise Other/Notes Pt. participated in group PT OT session this date. Pt. ambulated to from room with SBA and FWW. Pt. was pleasant and enjoyed socializing with introductions and shared where she was born and what she is most proud of in her life. Supervisor Bleach Plantkarolyn [employer] was present. Introduced herself and shared a short while and gave an opening prayer. Education RE: pain derived from "Explain Pain " was shared and pts. discussed their ways of managing pain etc. the benefits of exercise and activity with re: to pain and its affects as well as how activity assists with metabolizing pain meds . Pts also as a group reviewed the memory session last WED and recalled the 3 word memory challenge for today. Pts. shared inspiring stories with one another . Pt. returned to her room after group , was assisted to bed and had call [place] in hand. Start Time: 13:00 Stop Time: 14:20 Total Billed Treatment Time: 80 Total Billed Treatment 1,GRP JILLIAN COOPER RATER ASSOCIATE Sep 03, 2017 14:50
[2017-09-03 18:18] VITALS: BP 104/66
[2017-09-04] MEDS: MULTIVIT W/MINERALS TAB (THERAGRAN M) PO SCH (06:37)
[2017-09-04] MEDS: PANTOPRAZOLE 40 MG (PROTONIX) TAB PO SCH (06:37)
[2017-09-04] MEDS: LEVOTHYROXINE 100 MCG (LEVOTHROID) TAB PO SCH (06:37)
[2017-09-04 08:05] VITALS: BP 124/71
[2017-09-04] MEDS: DICLOFENAC 1% GEL 100 GM (VOLTAREN) TUBE TOP SCH ×4 (08:10→20:22)
[2017-09-04] MEDS: HYDROcodone/APAP 10 MG/325 MG (LORTAB) TAB PO SCH ×4 (08:10→20:22)
[2017-09-04] MEDS: SERTRALINE 50 MG (ZOLOFT) TABLET PO SCH (09:52)
[2017-09-04] MEDS: SENNA W/DOCUSATE (SENOKOT S) TABLET PO SCH ×2 (09:52→20:22)
[2017-09-04] MEDS: eZETimibe 10 MG (ZETIA) TABLET PO SCH (09:53)
[2017-09-04] MEDS: LORATADINE (CLARITIN) 10 MG TAB PO SCH (09:53)
[2017-09-04] MEDS: ASPIRIN E.C. 325 MG (ECOTRIN) TABLET PO SCH ×2 (09:53→20:22)
[2017-09-04] MEDS: BISOPROLOL/HCTZ 5/6.25 MG (ZIAC) TAB PO SCH (09:53)
--- NOTE | 2017-09-04 13:07 | Physical Therapy Daily Note ---
PT Daily Note-Current Subjective Pain rated 3/10 in (R) hip upon arrival. Pt agreeable to PT. Pt primary complaint during PT is "sanchez" pain. Pain rated 6/10 in (R) sanchez, relieved once pt returned to bed. Mental Status Patient Orientation: Person, Place, Situation Transfers Functional Ada Measure 0=Not Assessed/NA 4=Minimal Assistance 1=Total Assistance 5=Supervision or Setup 2=Maximal Assistance 6=Modified Ada 3=Moderate Assistance 7=Complete IndependenceIRFPAI Quality Coding Scale 6 Independent with activity with or without an assistive device 5 Patient requires set up or clean up by helper. Patient completes activity by themselves 4 Supervision or touching assist (CGA). Blair provide cues , steadying assist 3 The helper provides less than half the effort to complete the activity 2 The helper provides more than half the effort to complete the activity 1 Dependent. The helper does all the effort to complete an activity 7 Patient refused to complete or attempt activity 9 The patient did not perform the activity before the current illness or injury 88 Not attempted due to Medical conditions or safety concerns Mod (I) transfers all levels Weight Bearing Right Lower Extremity: Right Weight Bearing/Tolerated Left Lower Extremity: Left Full Weight Bearing Gait Training Gait Assistive Device: FWW PT amb 2 x 150ft with FWW and WBAT (R) LE. Pt practiced steps with SBA, correct technique. Treatments STanding ther ex: Heel raise, mini squat and ham curl (R) LE x 10 each. Supine heel slide, QS, GS and SAQ x 10 each. Pt mathew well with rest breaks. Pt needs met, daughter present. Assessment Current Status: Good Progress Pt back to bed with (R) LE floating on pillow, cold pack at hip, compression pumps in place. Pt progressing appropriately. PT Short Term Goals Short Term Goals Time Frame: Sep 07, 2017 Gait (FIM): 4 Distance (FIM): 3=150 ft Gait Assistive Device: FWW PT Public Health Clinical Nurse Specialist Goals Correction Goals PT Public Health Clinical Nurse Specialist Goals Time Frame: Sep 21, 2017 Transfers (B,C,W/C) (FIM): 6 Sit to Lying (QC): 6 (met) Lying-Sitting on Side/Bed(QC): 6 (met) Sit to Stand (QC): 6 Rollin (met) Roll Left to Right (QC): 6 (met) Chair/Kqd-co-Horzc Xfer(QC): 6 Car Transfer (QC): 6 Does the Patient Walk: Yes Gait (FIM): 6 Gait distance (FIM): 3=150 ft Walk 10 feet (QC): 6 Walk 10ft-Uneven Surface(QC): 6 Walk 50ft with 2 Turns (QC): 6 Walk 150 ft (QC): 6 Gait Assistive Device: FWW Does the Pt use WC or Scooter?: No Stairs (FIM): 5 # of Steps: 8 1 Step (curb) (QC): 6 4 Steps (QC): 6 12 Steps (QC): 88 Picking up an Object (QC): 5 (mod indep) PT Plan Treatment/Plan Treatment Plan: Continue Plan of Care Treatment Plan: Bed Mobility, Education, Functional Activity Matthew, Functional Strength, Group Therapy, Gait, Safety, Therapeutic Exercise, Transfers Treatment Duration: Sep 21, 2017 Frequency: At least 5 of 7 days/Wk (IRF) Estimated Hrs Per Day: 1.5 hours per day Patient and/or Family Agrees t: Yes Time/GCodes Time In: 740 Time Out: 820 Total Billed Treatment Time: 40 Total Billed Treatment 1, Ex x 15', gait x 30' RICK SMITH CPTA Sep 04, 2017 13:07
[2017-09-04 18:30] VITALS: BP 114/72
--- NOTE | 2017-09-04 20:48 | Cardiology Progress Note ---
Cardiology SOAP Progress Note Subjective: No hip pain. Further chest pain. Objective: I&O/Vital Signs Vital Sign - Last 12Hours 09/04/17 09/04/17 18:30 20:31 Temp 98.9 Pulse 77 Resp 20 B/P (MAP) 114/72 (86) Pulse Ox 93 O2 Delivery Room Air Room Air Intake and Output 09/04/17 00:00 Intake Total 1100 ml Balance 1100 ml Weight (Pounds): 149 Weight (Ounces): 0.6 Weight (Calculated Kilograms): 67.456952 Constitutional: No appears stated age, No AAO x 3, No apparent distress, No PERRL, No well-developed, No well-nourished, No other Respiratory: No accessory muscle use, No respiratory distress, No chest tender , No chest expansion is symmetric, No chest is bilaterally symmetric, No lungs clear to percussion, No lungs clear to auscultation, No crackles, No rhonchi, No rales, No stridor, No wheezing, No pleural rub, No other Cardiovascular: No regular rate-rhythm, No irregularly irregular, No extra beats, No parasternal heave is noted, No JVD, No edema, No bradycardia, No tachycardia, No point of maximal impulse, No cardiac thrills are palpable, No S1 and S2, No gallop/S3, No gallop/S4, No diastolic murmur, No systolic murmur, No friction rub, No click, No other Gastrointestional: No tender, No soft, No round, No distended, No pulsatile mass, No organomegaly, No guarding, No rebound, No tenderness, No hernia, No mass, No audible bowel sounds, No abnormal bowel sounds, No abdominal bruits, No spleenomegaly, No other Extremities: No normal range of motion, No non-tender, No normal inspection, No pedal edema, No calf tenderness, No normal capillary refill, No pelvis stable , No calf tenderness, No inflammation, No pedal edema, No slow capillary refill , No swelling, No other, No abrasion, No clubbing, No cyanosis, No ecchymosis, No laceration, No no lower extremity edema bilateral, No significant edema, No tenderness, No wound Neurologic/Psychiatric: No bead maker II-XII nml as tested, No no motor/sensory deficits, No alert, No normal mood/affect, No oriented x 3, No abnormal cerebellar tests, No abnormal bead maker II-XII, No abnormal gait, No aphasia, No EOM palsy, No facial droop, No motor weakness, No sensory deficit, No depressed affect, No disoriented x 3, No other, No grossly intact, No power is 5/5 both on sides Skin: No normal color, No warm/dry, No cyanosis, No cool, No diaphoresis, No damp, No ecchymosis, No jaundice, No mottled, No pallor, No rash, No tattoos/ piercings, No ulcerations, No rash on exposed areas, No ulcerations on exposed areas, No other A/P: Assessment/Dx: Chest pain Right hip fracture Hypertension Thoracic aortic aneurysm Plan: Chest pain, non specific etiology- resolved. EKG reveals SR with no acute ST changes, stress test showed no ischemia with normal LV function Dyspnea on exertion, better at this time Right hip fracture, status post surgical repair done on 08/29/17. Recovering well. No further discomfort. Hypertension, controlled. Continue to monitor BP/HR. Thoracic aortic aneurysm, seen and evaluated by Dr. Jhon Fong. Continue to monitor. Hyperlipidemia, maintained on Zetia. Monitored as outpatient History of urinary incontinence Family history of thoracic aneurysm. Likely discharge tomorrow. Thank you for your consultation. Please call me if you have any questions. Bernard Chambers MD, FACP, FACC, FSCAI, FHRS, CCDS Interventional Cardiology Cardiac Electrophysiology Vascular Medicine and Endovascular Interventions Mynor CHAMBERS MD Sep 04, 2017 8:48 pm
[2017-09-05 05:34] VITALS: BP 167/83
[2017-09-05] MEDS: MULTIVIT W/MINERALS TAB (THERAGRAN M) PO SCH (06:12)
[2017-09-05] MEDS: PANTOPRAZOLE 40 MG (PROTONIX) TAB PO SCH (06:12)
[2017-09-05] MEDS: LEVOTHYROXINE 100 MCG (LEVOTHROID) TAB PO SCH (06:12)
[2017-09-05] MEDS: BISOPROLOL/HCTZ 5/6.25 MG (ZIAC) TAB PO SCH (08:13)
[2017-09-05] MEDS: LORATADINE (CLARITIN) 10 MG TAB PO SCH (08:14)
[2017-09-05] MEDS: eZETimibe 10 MG (ZETIA) TABLET PO SCH (08:14)
[2017-09-05] MEDS: HYDROcodone/APAP 10 MG/325 MG (LORTAB) TAB PO SCH (08:14)
[2017-09-05] MEDS: SENNA W/DOCUSATE (SENOKOT S) TABLET PO SCH (08:14)
[2017-09-05] MEDS: SERTRALINE 50 MG (ZOLOFT) TABLET PO SCH (08:14)
[2017-09-05] MEDS: ASPIRIN E.C. 325 MG (ECOTRIN) TABLET PO SCH (08:14)
[2017-09-05] MEDS: DICLOFENAC 1% GEL 100 GM (VOLTAREN) TUBE TOP SCH (08:17)
[2017-09-05 09:45] VITALS: BP 154/73
--- NOTE | 2017-09-07 08:49 | Therapy Team Discharge Summary ---
Therapy Discharge Summary Discharge Recommendations Date of Discharge Sep 05, 2017 at 09:45 Therapy D/C Recommendations: Home w/ Family Support, Occupational Therapy Home Care Occupational Therapy Pt was seen for skilled OT to increase her independence in basic self care to allow her to safely return to her home and to decrease caregiver burden. On admission she was independent with eating, needed setup/SBA for grooming and upper body dressing, min assist/CGA for bathing and toileting/toilet transfer and mod assist with lower body dressing. By discharge she was SBA for bathing, min/CGA for lower body dressing and mod I for toileting/toilet transfers. Home health OT is recommended. See tx plan for goals met. DC OT Decreased Activ Tolerance, Impaired I ADL's, Impaired Self-Care Skills PT Wastewater Supervisor Goals Wastewater Supervisor Goals PT Fdc Goals Time Frame: Sep 21, 2017 Transfers (B,C,W/C) (FIM): 6 Roll Left to Right (QC): 6 (met) Sit to Lying (QC): 6 (met) Lying-Sitting on Side/Bed(QC): 6 (met) Sit to Stand (QC): 6 Chair/Yah-se-Hywsf Xfer(QC): 6 Car Transfer (QC): 6 Does the Patient Walk: Yes Gait (FIM): 6 Gait distance (FIM): 3=150 ft Walk 10 feet (QC): 6 Walk 10ft-Uneven Surface(QC): 6 Walk 50ft with 2 Turns (QC): 6 Walk 150 ft (QC): 6 Gait Assistive Device: FWW Does the Pt use WC or Scooter?: No Stairs (FIM): 5 # of Steps: 8 1 Step (curb) (QC): 6 4 Steps (QC): 6 12 Steps (QC): 88 Picking up an Object (QC): 5 (mod indep) OT Wastewater Supervisor Goals Fdc Goals Time Frame: Sep 21, 2017 Eating (FIM): 6 (met) Eating (QC): 6 (met) Oral Hygiene (QC): 6 Grooming(FIM): 6 Bathing(FIM): 6 Shower/Bathe Self (QC): 6 Upper Body Dressing(FIM): 6 Upper Body Dressing (QC): 6 Lower Body Dressing(FIM): 6 Lower Body Dressing (QC): 6 On/Off Footwear (QC): 6 Toileting(FIM): 6 (met) Toileting Hygiene (QC): 6 (met) Toilet/Commode Transfer(FIM): 6 (met) Toilet/Commode Transfer (QC): 6 (met) Tub Transfer(FIM): 6 (or shower) Shower Transfer(FIM): 6 (or tub) Additional Goals: 1-Demonstrate ADL Tasks, 2-Verbalize Understanding, 3- ImproveStrength/Matthew 1=Demonstrate adherence to instructed precautions during ADL tasks. 2=Patient will verbalize/demonstrate understanding of assistive devices/ modifications for ADL. 3=Patient will improve strength/tolerance for activity to enable patient to perform ADL's. ELE LABOY OT Sep 07, 2017 08:49
== END 2017-09-05 09:45 | disposition home health service (06) | DRG 561 ==
PROVIDERS: ADMIT Physical Medicine & Rehabilitation; ATTEND Physical Medicine & Rehabilitation
DX: S72.001D Fracture of unspecified part of neck of right femur, subsequent encounter for closed fracture with routine healing (principal); I10 Essential (primary) hypertension; K21.9 Gastro-esophageal reflux disease without esophagitis; F32.9 Major depressive disorder, single episode, unspecified; I71.2 Thoracic aortic aneurysm, without rupture; E78.5 Hyperlipidemia, unspecified; H35.30 Unspecified macular degeneration; R32 Unspecified urinary incontinence; E03.9 Hypothyroidism, unspecified; R07.9 Chest pain, unspecified; W19.XXXD Unspecified fall, subsequent encounter; Y92.009 Unspecified place in unspecified non-institutional (private) residence as the place of occurrence of the external cause
CPT/HCPCS: 36415; 78452; 84484; 93005; 93017

== ENCOUNTER 2017-10-26 09:57 | Outpatient (RCR) | payer MEDICARE, OTHER ==
[~2017-10-26 09:57] MED LIST changes: +DICL100G18 TOP; +DICL100G18 TP; +HYDR-3820 PO
== END 2017-11-15 14:14 | disposition home or self-care (01) ==
PROVIDERS: ATTEND Nurse Practitioner Family
DX: Z47.1 Aftercare following joint replacement surgery (principal); Z96.651 Presence of right artificial knee joint; S72.001D Fracture of unspecified part of neck of right femur, subsequent encounter for closed fracture with routine healing

== ENCOUNTER → 2017-12-20 | Outpatient (CLI) | payer MEDICARE, OTHER ==
[~2017-12-20] MED LIST changes: +IOHEXOL 350 MG/ML 100 ML (OMNIPAQUE 350) VIAL IV ONE; +NS 250 ML (IVPB) BAG IV ONE
[2017-12-20 12:43] LABS: CALCIUM 8.9 MG/DL (8.5-10.1); CREATININE SERUM 1.04 MG/DL (0.60-1.30); POTASSIUM 3.9 MMOL/L (3.6-5.0)
--- NOTE | 2017-12-20 13:44 | Diagnostic Imaging Report ---
PROCEDURE: CT chest with contrast only. TECHNIQUE: Multiple contiguous axial images were obtained through the chest after administration of intravenous contrast. INDICATION: Aortic aneurysm. COMPARISON: Comparison is made with prior CT from 07/02/2017. FINDINGS: No axillary lymphadenopathy is seen. No definite hilar or mediastinal lymphadenopathy is detected. Moderate-sized hiatal hernia is again noted. Aneurysmal dilatation of the ascending thoracic aorta is similar to prior study measuring approximately 5.1 cm AP compared with 4.9 cm on prior. The aortic arch and descending thoracic aorta are normal in caliber. No dissection is seen. No pericardial or pleural fluid is identified. Parenchymal evaluation does show a tiny nodule in the left upper lobe, image 8, measuring 3 mm. This appears stable. Previously noted right upper lobe pulmonary nodule is stable at 7 mm, image 25. No new parenchymal mass is detected. Upper abdomen is unremarkable. IMPRESSION: Stable bilateral upper lobe pulmonary nodules and ascending thoracic aortic aneurysm when compared with prior exam from 07/02/2017. Dictated by: Dictated on workstation # [id number]
== END ==
LOC: RAD 12:06
PROVIDERS: ATTEND Thoracic Surgery (Cardiothoracic Vascular Surgery)
DX: I71.2 Thoracic aortic aneurysm, without rupture (principal); R91.8 Other nonspecific abnormal finding of lung field
CPT/HCPCS: 36415; 71260; 80048

== ENCOUNTER 2018-05-18 08:07 | Outpatient (RCR) | payer MEDICARE, OTHER ==
[~2018-05-18 08:07] MED LIST changes: -IOHEXOL 350 MG/ML 100 ML (OMNIPAQUE 350) VIAL IV ONE; -NS 250 ML (IVPB) BAG IV ONE; -OXYC-197 PO; +OXYC1TAB87 PO
== END 2018-05-24 08:11 | disposition home or self-care (01) ==
PROVIDERS: ATTEND Nurse Practitioner Family
DX: M51.16 Intervertebral disc disorders with radiculopathy, lumbar region (principal); Z96.651 Presence of right artificial knee joint; Z96.641 Presence of right artificial hip joint

== ENCOUNTER 2018-06-01 08:24 | Outpatient (RCR) | payer MEDICARE, OTHER | END 2018-06-01 14:08 | disposition home or self-care (01) | PROVIDERS: ATTEND Nurse Practitioner Family | DX: M51.16 Intervertebral disc disorders with radiculopathy, lumbar region (principal); Z96.651 Presence of right artificial knee joint; Z96.641 Presence of right artificial hip joint ==

== ENCOUNTER → 2018-06-23 | Outpatient (CLI) | payer MEDICARE, OTHER ==
[~2018-06-23] MED LIST changes: +IOHEXOL 350 MG/ML 100 ML (OMNIPAQUE 350) VIAL IV ONE; +NS 250 ML (IVPB) BAG IV ONE; +RECEIVED CONTRAST (Hold Metformin) IV SCH; -SENN-140 PO; +SENN-141 PO
[2018-06-23 09:36] LABS: CALCIUM 9.8 MG/DL (8.5-10.1); CREATININE SERUM 1.16 MG/DL (0.60-1.30); POTASSIUM 4.1 MMOL/L (3.6-5.0)
--- NOTE | 2018-06-23 10:34 | Diagnostic Imaging Report ---
PROCEDURE: CT chest with contrast only. TECHNIQUE: Multiple contiguous axial images were obtained through the chest after administration of intravenous contrast. INDICATION: Thoracic aortic aneurysm. The study is performed for followup. COMPARISON: Correlation is made with prior CT from 12/20/2017. FINDINGS: Aneurysmal dilatation of the ascending thoracic aorta is stable at 4.9 cm AP compared with 5.1 cm on prior exam. Aortic arch and descending thoracic aorta remain normal caliber. No dissection is seen. No pericardial or pleural fluid is identified. Moderate-sized hiatal hernia is again noted. No axillary, hilar or mediastinal lymphadenopathy is detected. Small nodules bilateral upper lobes appear stable measuring 3-4 mm on the left, image 12 and 6 mm on the right, image 28. No new parenchymal mass is seen. The upper abdomen is unremarkable. IMPRESSION: Stable CT of the chest when compared with exam from 12/20/2017. The ascending thoracic aortic aneurysm is stable. No dissection is seen. Dictated by: Dictated on workstation # [id number]
== END ==
LOC: RAD 08:29
PROVIDERS: ATTEND Thoracic Surgery (Cardiothoracic Vascular Surgery)
DX: I71.2 Thoracic aortic aneurysm, without rupture (principal)
CPT/HCPCS: 36415; 71260; 80048

== ENCOUNTER 2021-08-25 12:42 | Emergency (ER) | payer MEDICARE, OTHER ==
[~2021-08-25] VITALS: Ht 154 cm; Wt 65.0 kg
[~2021-08-25 12:42] MED LIST changes: +ACHYD1T PO; +BISO-2 PO; -BISO1TAB3 PO; +EZET10TA17 PO; -EZET10TA5 PO; -HYDR-3820 PO; -IOHEXOL 350 MG/ML 100 ML (OMNIPAQUE 350) VIAL IV ONE; -NS 250 ML (IVPB) BAG IV ONE; -RECEIVED CONTRAST (Hold Metformin) IV SCH; -SENN-141 PO; +SENN-234 PO; +SERT-413 PO; -SERT50TA9 PO; -TRAM50TA2 PO; +TRM50T PO
--- NOTE | 2021-08-25 13:56 | ED General ---
General Chief Complaint: COVID19 Suspect/Confirmed Stated Complaint: WEAK,COUGH Source of Information: Patient Exam Limitations: No Limitations History of Present Illness Date Seen by Provider: Aug 25, 2021 Time Seen by Provider: 13:20 Initial Comments Patient is an 89-year-old female who presents to the emergency department today with a chief complaint of generalized weakness, mild cough, some diarrhea and near syncope this morning. Patient states occasionally she gets "weak spells" and if she can just go into her bedroom and lie down a while they will pass and she feels better. Patient states she had such an episode this morning. She had a difficult time getting off the toilet. When she did her son came in and advised that she come to the emergency department. Patient has had decreasing appetite over the course of the last several months. She has not alerted her primary care provider in [place] about this however. Her next appointment is in November. She denies any burning with urination. No black or bloody stools. No chest pain, no shortness of breath. She does have some rhinorrhea and nasal congestion that she has had since . She is Covid vaccinated, had her booster in June. No sick contacts that she is aware of. Currently she is asymptomatic, she states "really I am fine". I discussed doing a "work-up" with her but she does not think it is necessary and I do not think it is indicated. Her blood pressure is perfect, her heart rate is in the 70s. Her oxygen saturations on room air are 95 to 97%. All other review of systems reviewed and negative except as stated. Timing/Duration: 4-6 Hours Severity: Mild Associated Systoms: Denies Symptoms Allergies and Home Medications Allergies Coded Allergies: No Known Drug Allergies (Unverified , 08/28/17) Patient Home Medication List Home Medication List Reviewed: Yes Aspirin (Aspirin EC) 325 Mg Tablet., 325 MG PO BID Prescribed by: ANTONELLA RAM on 09/03/17 0935 Bisoprolol Fumarate/Hctz (Bisoprolol-Hctz 5-6.25 mg Tab) 1 Each Tablet, 1 TAB PO DAILY, (Reported) Entered as Reported by: LOUANN BARTLETT on 10/27/15 1048 Cetirizine HCl (Cetirizine HCl) 10 Mg Tablet, 10 MG PO DAILY, (Reported) Entered as Reported by: SCOTTY GRIFFIN on 08/29/17 153 Cyclosporine (Restasis) 1 Each Droperette, 1 DROP OU DAILY, (Reported) Entered as Reported by: SCOTTY GRIFFIN on 08/29/17 153 Diclofenac Sodium (Voltaren) 100 Gm Gel..gram., 4 GM TOP QID Prescribed by: ANTONELLA RAM on 09/03/17 0935 Ezetimibe (Zetia) 10 Mg Tablet, 10 MG PO DAILY, (Reported) Entered as Reported by: LOUANN BARTLETT on 10/27/15 1048 Hydrocodone Bit/Acetaminophen (HYDROcodone/APAP 10/325 TABLET) 1 Each Tablet, 1 EA PO QID Prescribed by: ANTONELLA RAM on 09/03/17 0935 Lansoprazole (Lansoprazole) 30 Mg Capsule.dr, 30 MG PO DAILY, (Reported) Entered as Reported by: LOUANN BARTLETT on 10/27/15 1048 Levothyroxine Sodium (Levothyroxine Sodium) 100 Mcg Tablet, 100 MCG PO DAILY, (Reported) Entered as Reported by: AYLIN ROSALES on 08/29/17 1158 Sertraline HCl (Sertraline HCl) 50 Mg Tablet, 50 MG PO DAILY, (Reported) Entered as Reported by: LOUANN BARTLETT on 10/27/15 1048 Tramadol HCl (Tramadol HCl) 50 Mg Tablet, 50 MG PO Q4H PRN for PAIN-MODERATE Prescribed by: ANTONELLA RAM on 09/03/17 0935 Vit A/C/E/Zinc/Co (Preservision Areds Softgel) 1 Cap Capsule, 1 CAP PO DAILY, (Reported) Entered as Reported by: SCOTTY GRIFFIN on 08/29/17 153 Review of Systems Review of Systems Constitutional: see HPI EENTM: nose congestion (rhinorrhea) Respiratory: cough Cardiovascular: no symptoms reported Gastrointestinal: diarrhea Genitourinary: no symptoms reported Musculoskeletal: no symptoms reported Skin: no symptoms reported Psychiatric/Neurological: Headache (mild) All Other Systems Reviewed Negative Unless Noted: Yes Past Wizrlka-Ckkimv-Asjskz Hx Immunizations Up To Date Tetanus Booster (TDap): Less than 5yrs Past Medical History Surgeries: Yes (RIGHT KNEE SURG MAY [address] [place]; TFN RIGHT HIP) Orthopedic Respiratory: No Cardiac: Yes (ASCENDING AORTIC ANEURYSM) High Cholesterol, Hypertension Neurological: No Genitourinary: Yes (incontinence) Gastrointestinal: Yes Gastroesophageal Reflux Musculoskeletal: Yes Arthritis Endocrine: Yes (THYROID) Hypothyroidsim HEENT: Yes (dry eye syndrome) Macular Degeneration Cancer: No Psychosocial: Yes Depression Blood Disorders: No Family Medical History Patient reports no known family medical history. Physical Exam Vital Signs Capillary Refill : Height, Weight, BMI Height: 5'4.00" Weight: 149lbs. 0.6oz. 67.003100ca; 25.6 BMI Method:Stated General Appearance: No Apparent Distress, WD/WN Eyes: Bilateral Eye Normal Inspection, Bilateral Eye PERRL, Bilateral Eye EOMI HEENT: PERRL/EOMI Neck: Normal Inspection, Non Tender, Supple Respiratory: Lungs Clear, Normal Breath Sounds, No Accessory Muscle Use, No Respiratory Distress Cardiovascular: Regular Rate, Rhythm, Normal Peripheral Pulses Gastrointestinal: Normal Bowel Sounds, Non Tender, Soft Extremity: Normal Inspection, Normal Range of Motion, Non Tender, No Calf Tenderness Neurologic/Psychiatric: Alert, Oriented x3, No Motor/Sensory Deficits, Normal Mood/Affect Skin: Normal Color, Warm/Dry Progress/Results/Core Measures Suspected Sepsis SIRS Temperature: Pulse: Respiratory Rate: Blood Pressure / Mean: Results/Orders My Orders Orders - PADMINI CRISTINA MD Covid 19 Inhouse Test (08/25/21 13:50) Isolation Central Supply Req (08/25/21 13:50) Influenza A & B Antigens (08/25/21 13:50) Vital Signs/I&O Capillary Refill : Progress Note : Time: 13:54 Progress Note Discussion with patient regarding "work-up". She looks great. Vital signs are stable. No clinical or objective findings to warrant further testing other than a Covid swab. I advised the patient that should her test come back negative she would still be considered potentially infectious as the PCR test takes 24 hours to come back. Patient states that she will stay at home and quarantine. I advised her we would call her with her preliminary test results as soon as they came back. Ctgn-egd-ofqyikx Tylenol as needed for headache. Plenty of fluids to stay hydrated. Activity and deep breathing. She is comfortable with the plan of care. All questions are sought and answered. I did advise her to call the front night clinic and get an earlier appointment in November. Departure Impression Primary Impression: Viral syndrome Additional Impression: Person under investigation for COVID-19 Disposition: 01 HOME, SELF-CARE Condition: Stable Departure-Patient Inst. Decision time for Depature: 13:55 Referrals: ERIK DESAI MD (PCP/Family) Primary Care Physician Patient Instructions: Viral Syndrome (DC) Add. Discharge Instructions: Drink plenty of fluids to stay well-hydrated. Take yhkx-vxi-fhqwneg extra strength Tylenol, 2 tablets every 6 hours as needed for headache/body aches. We have sent off a Covid test for you today. I will call you with results by the end of the day. If that test is negative it will be 24 hours before we can confirm that with a second test. We will also contact you if that test is positive. Quarantine, isolate until you get the results of the second test. Come back to the emergency room for return of symptoms especially worsening with fever, shortness of breath, vomiting or any other emergent symptoms.. PADMINI CRISTINA MD Aug 25, 2021 13:56
[2021-08-25 14:10] VITALS: BP 148/90
== END 2021-08-25 14:10 | disposition home or self-care (01) ==
LOC: EDUNIT# 12:42 → ER 12:43
DX: B34.9 Viral infection, unspecified (principal); I10 Essential (primary) hypertension; E78.00 Pure hypercholesterolemia, unspecified; F32.9 Major depressive disorder, single episode, unspecified; E03.9 Hypothyroidism, unspecified; K21.9 Gastro-esophageal reflux disease without esophagitis; Z20.822 Contact with and (suspected) exposure to COVID-19; Z79.82 Long term (current) use of aspirin; Z79.890 Hormone replacement therapy; Z79.899 Other long term (current) drug therapy
CPT/HCPCS: 87635; 87636; 87804; 99283